=== PATIENT | female | born 1950 | race Caucasian/White ===

== ENCOUNTER 2016-04-02 05:35 | Inpatient (IN) | payer MEDICARE ==
[~2016-04-02] VITALS: Ht 162.6 cm; Wt 98.0 kg
[~2016-04-02 05:35] MED LIST: AC500T PO; ACET-2264 PO; ACET325T38 PO; AGM500T GT; ALBU0.8322 IH; ALBU8.5H4 IH; ALBU8.5H6 INH; AML2.5T PO; AMOX875T2 PO; ARGI2000 PO; ARGINAID PO; ASCO500T21 PO; BDS2MA INH; BENZ0.5T3 PO; BISA10SU6 RC; BNZT1T PO; BUPR-42 PO; BUSP10TA95 PO; BUSP15TA55 PO; BUSP15TA75 PO; CALC300T10 PO; CANA300T PO; CEFD300C9 PO; CEPH-507 PO; CETI-262 PO; CETI10TA76 PO; CHLO50TA22 PO; CHOL4PAC16 PO; CLOT15CR3 TOP; CLOT15CR6 TP; CODE118S2 PO; CPR500T PO; CYAN10004 IJ; CYCL-265 PO; DIVA250T4 PO; DIVA500T7 PO; DOCU-243 PO; DOCU-34 PO; DOCU100C PO; DOXY100C42 PO; DUONEB 0.5 MG-33 ML IH; DVL500TSR PO; EXEN2PEN SQ; EXEN2VIA SQ; FAMO20TA73 PO; FAMO40TA72 PO; FENT1PAT TD; FERR325T24 PO; FLC1T PO; FLUP1TAB PO; FLUT16SP NSEACH; FLUT1DIS2 INH; FLUT1DIS3 IH; FRSM40T GT; FURO-124 PO; GABA300C PO; GBPN100C PO; GLMP2T PO; GLMP4T PO; HYDR-3754 PO; HYDR-700 PO; INSASP1U SQ; INSU100I9 SC; INSU100V2 SQ; INSU100V32 SC; INSU100V32 SQ; INSU100V5 SC; IPRA3AMP11 INH; KETO50CA PO; LEVO100T7 PO; LEVO25TA2 PO; LEVO25TA5 PO; LEVO500T16 PO; LEVO50TA10 PO; LEVO750T39 PO; LEVOTHYROXINE PO; LINA290C PO; LISI-594 PO; LISI2.5T85 PO; LISI5TAB14 PO; LITH450T14 PO; LOPE2TAB17; LORA-404 PO; LORA-405 PO; LORA-407 PO; LSNP10T PO; LTH150C PO; LTH450TCR PO; MAGN400T26 PO; MELA1TAB26 PO; METAMUCIL1 PKT PO; METF750T PO; METF850T PO; METO-270 PO; METO25TA60 PO; METR500T PO; MIRALAX 17 GM P17 GM GT; MOM10U; MULT-954 PO; MUPI22OI TP; NCT21TD TD; NITR100C3 PO; OLAN5TAB23 PO; OLN5T PO; ONDA4TAB8 PO; ONDN4T PO; OXYB5TAB PO; OXYB5TAB9 PO; OXYC-109 PO; OXYC1TAB87 PO; OXYC20TA54 PO; OXYC5TAB71 PO; OXYGEN; PANT40SU PO; PERCOCET PO; PHEN-640 PO; POLY17PO2 PO; POLY17PO6 PO; POTA20TA12 PO; PRM25T PO; PROM25TA5 PO; PSYL1PAC10 PO; QTP100T PO; QUET300T2 PO; QUET400T PO; QUET50TA3 PO; RISP0.5T16 PO; RSP.5T PO; RSP2T PO; SENN-36 PO; SENN8.6T10 PO; SIME80TA PO; TIOT18CA IH; TRAM-25 PO; TRM50T BC; TRM50T PO; VANCORAL GT; VANCORAL PO; WARF5TAB PO; ZINC220C14 PO; [UNRECOGNIZED DRUG - CODE] IM; [UNRECOGNIZED DRUG - CODE] PO; [UNRECOGNIZED DRUG - CODE] PO; [UNRECOGNIZED DRUG - CODE] PO
--- OUTSIDE RECORDS SUMMARY | 2016-04-02 05:39 | XMS REPORT ---
Author Author GENERATED, SYSTEM Organization Unknown Address Unknown Phone Unavailable Care Team Providers Care Sand Digger Name Role Phone UNASSIGNED DOCTOR MD MARLIN DOCTOR PP [phone] Reason For Visit Chief Complaint N94.89 Social History Functional Status Vital Signs Results Problems Encounter Diagnosis No relevant problems exist. Encounters Encounter Diagnosis No relevant problems exist. Plan of Care Procedures Completed , on 10/07/2008 12:00 AMCompleted , on 08/27/2008 12:00 AMCompleted , on 08/26/2008 12:00 AMCompleted , on 08/26/2008 12:00 AMCompleted , on 08/25/2008 12: 00 AMCompleted , on 08/04/2008 12:00 AMCompleted , on 04/03/2008 12:00 AMCompleted , on 03/17/2008 12:00 AM Immunizations No immunizations administered or ordered. Hospital Course Hospital Discharge Instructions Allergies, Adverse Reactions, Alerts Latex Allergy has not been assessed.IV Contrast Allergy has not been assessed. Medication Medication reconciliation has not been performed.
--- OUTSIDE RECORDS SUMMARY | 2016-04-02 05:42 | XMS REPORT ---
Author Author GENERATED, SYSTEM Organization Unknown Address Unknown Phone Unavailable Care Team Providers Care Powerhouse Attendant Name Role Phone UNASSIGNED DOCTOR MD MARLIN DOCTOR PP [phone] Reason For Visit Chief Complaint N94.89 Social [...]
[2016-04-02] MEDS ORDERED: ALBUTEROL/IPRATROPIUM 3MG-0.5MG/3ML (DUONEB) NEB VIAL INH ONE (06:10)
[2016-04-02] MEDS ORDERED: methylPREDNISolone 125 MG (Solu-MEDROL) VIAL IV ONE (06:10)
[2016-04-02] MEDS ORDERED: SODIUM CHLORIDE FLUSH 3 ML SYR IV ONE (06:30)
[2016-04-02] MEDS: SODIUM CHLORIDE FLUSH 10 ML SYR IV PRN (06:33)
[2016-04-02 06:37] LABS: BASOPHILS % (AUTO) 0 % (0-2); EOSINOPHILS # (AUTO) 0.2 10^3uL; EOSINOPHILS % (AUTO) 1 % (0-4); LYMPHOCYTES # (AUTO) 1.7 X10^3; MEAN CORPUSCULAR HEMOGLOBIN 30.1 PG (26.0-34.0); MEAN CORPUSCULAR HGB CONC 32.9 g/dL (31.0-37.0); MEAN CORPUSCULAR VOLUME 91 FL (80-100); MEAN PLATELET VOLUME 10.2 FL (6.0-9.5); MONOCYTES # (AUTO) 0.9 X10^3; MONOCYTES % (AUTO) 6 % (3-11); NEUTROPHILS # (AUTO) 12.7 X10^3; NEUTROPHILS % (AUTO) 81 % (51-67); PLATELET COUNT 303 10^3uL (150-450); WHITE BLOOD COUNT 15.68 10^3uL (4.0-11.0)
--- NOTE | 2016-04-02 06:52 | NUR ---
RN ON DAY SHIFT TAKING OVER CARE OF PT
[2016-04-02 06:54] LABS: CREATINE KINASE 193 U/L (30-135)
[2016-04-02 07:17] LABS: ALBUMIN 3.6 g/dL (3.4-5.0); ALKALINE PHOSPHATASE 119 U/L (38-126); ANION GAP 10.3 MEQ/L (3-15); BUN/CREATININE RATIO 42 (10-20); CALCULATED IONIZED CALCIUM 4.7 mg/dL (3.8-4.6); TOTAL PROTEIN 5.9 g/dL (6.4-8.5)
[2016-04-02] MEDS ORDERED: INSULIN LISPRO 1 UNIT/0.01 ML (HUMALOG) DOSE SC ONE ×2 (07:25→08:20)
[2016-04-02] MEDS ORDERED: ALBUTEROL 0.5% NEB SOLUTION 2.5 MG/0.5 ML VIAL INH ONE (07:40)
[2016-04-02] MEDS ORDERED: CEFEPIME 2,000 MG in SODIUM CHLORIDE 100 ML IV ONE (07:40)
[2016-04-02] MEDS ORDERED: LEVOFLOXACIN 750 MG/150 ML IV 150 ML IV ONE (07:40)
--- NOTE | 2016-04-02 07:44 | NUR ---
bs 415
--- NOTE | 2016-04-02 08:04 | NUR ---
BG reading 379 - doctor notified.
[2016-04-02] MEDS ORDERED: PIPERACILLIN/TAZOBACTAM 4.5 GM in SODIUM CHLORIDE 100 ML IV ONE (08:10)
--- NOTE | 2016-04-02 08:10 | Diagnostic Imaging Report ---
INDICATION: Dyspnea. 0655 hours. Since examination of 03/27/2016, heart size and pulmonary vascularity remain within normal limits. There is no evidence of pneumothorax or consolidation. Calcified granulomas in the pulmonary sesar. Overall, there has been no adverse change. IMPRESSION: Stable chest without acute abnormality or adverse change. Dictated by: Dictated on workstation # [id number]
[2016-04-02] MEDS ORDERED: SODIUM CHLORIDE 0.9% NEB SOLN 3 ML VIAL ONE (08:11)
[2016-04-02] MEDS ORDERED: HYDROmorphone 1 MG/ML (DILAUDID) SYRINGE IV ONE (08:20)
--- NOTE | 2016-04-02 09:10 | NUR ---
Patient arrives via bed to room 303 from ED. Alert and oriented X3 but does appear drowsy and lethargic. 4L of 02 intact per oxymask. Vital upon arrival, T- 98.0, P- 113, R- 28, BP- 139/93, 02- 92% on 4L, and accucheck- 346. Patient denies pain but states "I am very sick". Levaquin infusing without difficulty. See admission for full assessment.
[2016-04-02 09:30] VITALS: BP 138/98
--- NOTE | 2016-04-02 09:39 | History and Physical (E) ---
History & Physical PCP: Elton Marsh MD CC Hypoxia HPI Ms. Hong is a 65 year old female presenting to the ED with shortness of breath. She was discharged on 03.27.16 after admission for COPD exacerbation an CAP. She followed up with her PCP on Saturday03.30.16, no medication changes were made at that time. She was discharged with oxygen to home, she continues to smoke cigarettes. This morning she took her oxygen off to go out to smoke a cigarette, when she came back inside, she was very short of air. This progressed and she had her family bring her to the ED. The patient was evaluated in the ED, she was found to have oxygen saturations in the 80's on room air. Admission was requested. Upon evaluation, the patient is somewhat belligerent. She does not answer questions, but is screaming about not wanting to go to [facility]. She continues to yell that she wants to go home. She states she did not want to com here. Her father and son are at bedside and reports that she asked them to call EMS to bring her to come to the ED. She does yell at her family reporting that she is angry regarding being at the hospital. Family states she has been sick since being discharged. Long discussion regarding patient's condition and care home care plan. Father is DPOA an does not feel that the patient is on the correct medications for her psychiatric disorders. He is concerned that her behaviors are a side effect of her medications. He states the patient sees her psychiatric provider regularly. PMH COPD (albuterol, albuterol/ipratropium, and fluticasone/salmeterol) Diabetes (novolog 10 units with meals, lantus 25 units HS, and canagliflozin) Hypothyroidism (levothyroxine) HTN (amlodipine, metoprolol, and lisinopril) Seasonal allergies (cetirizine and hydroxyzine). Psychiatric diagnoses: bipolar disorder, schizoaffective disorder (benztropine, bupropion, buspirone, fluphenazine, lithium, olanzapine) Neuropathy (gabapentin) Cervical cancer Tobaccoism Arthritis Chronic back pain (acetaminophen, ketoprofen, and tramdol) GERD History of C. Diff PSH Appendectomy Cholecystectomy Hysterectomy Hernia repair Partial bowel resection--unclear why. ALLERGIES: Iodine Ketolides/Macrolides "Myacins" Sulfa ASA Barium Doxycycline Haloperidol Marilla Sumatriptan Ziprasidone Please see list at end of report. HOME MEDICATIONS: Albuterol Sulfate 2 PUFF INH NEEDED Amlodipine 1 TAB PO DAILY Benztropine 0.5 MG PO DAILY Bupropion 150 MG PO DAILY Buspirone 10 MG PO TID Canagliflozin 300 MG PO UD Cetirizine 10 MG PO DAILY Ciprofloxacin 1 CAP PO BID Cyanocobalamin 1,000 MCG IJ monthly Docusate 100 MG PO BID Fluphenazine 1 TAB PO TID Fluticasone/Salmeterol 100-50 Diskus 1 PUFF INH BID Gabapentin 100 MG PO TID Insulin Aspart 10 UNIT SQ TIDWM Insulin Glargine 25 UNIT SC HS Ketoprofen 1 CAP PO DAILY Levothyroxine 125 MCG PO DAILY@0600 Lisinopril 1 TAB PO DAILY [place] 450 MG PO DAILY Magnesium Oxide 400 MG PO DAILY Metoprolol Succinate 25 MG PO DAILY Olanzapine 5 MG PO HS Oxybutynin 1 TAB PO NEEDED Polyethylene Glycol 3350 17 GM PO DAILY Acetaminophen 650 MG PO Q6H PRN PRN PAIN Albuterol/Ipratropium 3mg-0.5mg/3ml INH Q4H PRN PRN SHORTNESS OF BREATH Hydroxyzine 25 MG PO Q6H PRN ANXIETY Tramadol 1-2 TAB PO Q6H PRN PAIN Please see list at end of report. FH Parents--Father has HTN. Mother had cardiac disease. Siblings--Brother with HTN and skin cancer. Another brother who as a child from respiratory illness. Children--Son with DLD. Reportedly a heavy smoker for years. CODE STATUS Full code. ROS Unable to obtain as patient would not answer questions. OBJECTIVE Vital Signs Date Time Temp Pulse Resp B/P Pulse Ox O2 Delivery O2 Flow Rate FiO2 04/02/16 10:56 98.0 113 20 93 Oxymask 04/02/16 09:30 138/98 04/02/16 09:04 4 Patient refused exam. LABS CBC BMP Last 24 Hrs 04/02/16 06:25 Laboratory Results Past 24 Hrs 04/02/16 06:25: Alanine Aminotransferase (ALT/SGPT) 44, Albumin 3.6, Albumin/Globulin Ratio 1.565, Alkaline Phosphatase 119, Anion Gap 10.3, Aspartate Amino Transf (AST/ SGOT) 21, BUN/Creatinine Ratio 42, Basophils # (Auto) 0.0, Basophils (%) (Auto) 0, Blood Urea Nitrogen 35, C-Reactive Protein < 0.50, Calcium Level 9.7, Calcium /Ionized Calcium Ratio 4.7, Calculated Osmolality 291, Carbon Dioxide Level 36, Chloride Level 97, Creatine Kinase MB 3.9, Creatinine 0.84, D-Dimer 425, Eosinophils # (Auto) 0.2, Eosinophils (%) (Auto) 1, Estimat Glomerular Filtration Rate 82.6, Estimated GFR (Non- 68.3, Glucose Level 415, Hematocrit 41.60, Hemoglobin 13.7, [place] Level [Pending], Lymphocytes # ( Auto) 1.7, Lymphocytes (%) (Auto) 11, Mean Corpuscular Hemoglobin 30.1, Mean Corpuscular Hemoglobin Concent 32.9, Mean Corpuscular Volume 91, Mean Platelet Volume 10.2, Monocytes # (Auto) 0.9, Monocytes (%) (Auto) 6, LG-Nrr-H-Type Natriuretic Peptide 178, Neutrophils # (Auto) 12.7, Neutrophils (%) (Auto) 81, Platelet Count 303, Potassium Level 4.9, Red Blood Count 4.55, Red Cell Distribution Width 13.1, Sodium Level 137, Thyroid Stimulating Hormone (TSH) 1.70, Total Bilirubin 0.5, Total Creatine Kinase 193, Total Protein 5.9, Troponin I < 0.012, White Blood Count 15.68 MICRO BC's pending. IMAGING 04.02.16 CXR IMPRESSION: Stable chest without acute abnormality or adverse change. ASSESSMENT/PLAN Sepsis Met with tachycardia and leukocytosis. Attributed to HAP. Treating below. HAP Evidenced by leukocytosis and hypoxia. BC drawn in ER after abx were given. Patient has been treated with levofloxacin recently. Family reports the patient has taken all of the abx. Will provided levofloxacin and vancomycin. Continue to monitor cultures closely. Acute hypoxic respiratory failure Continue to provide supplemental oxygen. Attributed to HAP and COPD exacerbation. COPD Devtent is on albuterol, albuterol/ipratropium, and budesonide at home. Continue budesonide, schedule duonebs, provide prn albuterol. Will provide long tapering dose of steroids, 40mg daily while inpatient, then d/ c with medrol dose pack. Diabetes Patient is on Novolog 10 units with meals, lantus 25 units HS, and canagliflozin at home. Will monitor accu cheks, provide SSI, continue basal lantus and meal time insulin. Holding canagliflozin. Hypothyroidism TSH was normal on last admission. Continue home levothyroxine. HTN Continue home amlodipine and lisinopril. Bipolar disorder, schizoaffective disorder Continuing home fluphenazine and lithium. Tobaccoism Will offer nicoderm. Chronic back pain Patient uses acetaminophen, ketoprofen, and tramdol at home, will continue. FEN Medium diabetic diet. No fluids at this time. Electrolytes normal at this time. Code status Full code. DVT proph Lovenox. Dispo Inpatient for above issues. Allergies/Home Medications Allergies: Coded Allergies: Iodinated Contrast Media - Oral and (Verified Allergy, Unknown, 04/02/16) Macrolide Antibiotics (Verified Allergy, Unknown, 04/02/16) Sulfa (Sulfonamide Antibiotics) (Verified Allergy, Unknown, 04/02/16) aspirin (Verified Allergy, Unknown, 04/02/16) barium iodide (Verified Allergy, Unknown, 04/02/16) doxycycline (Verified Allergy, Unknown, 04/02/16) haloperidol (Verified Allergy, Unknown, 04/02/16) iodine (Verified Allergy, Unknown, 04/02/16) strawberry (Verified Allergy, Unknown, 04/02/16) sumatriptan (Verified Allergy, Unknown, TACHYCARDIA, PALPITATIONS, HTN, DIAPHORESIS, HEADACHE, 04/02/16) telithromycin (Verified Allergy, Unknown, 04/02/16) ketolides ziprasidone mesylate (Verified Allergy, Unknown, 04/02/16) Uncoded Allergies: KETOLIDES (Allergy, Unknown, 07/22/15) MYACINS (Allergy, Unknown, 07/22/15) Reported Home Medications Scheduled Amlodipine Besylate (Amlodipine Besylate) 2.5 MG PO DAILY (Reported) Budesonide (Pulmicort) 0.5 MG INH DAILY (Reported) Docusate Sodium (Stool Softener) 100 MG PO BID (Reported) Famotidine (Pepcid) 40 MG PO HS (Reported) Fluphenazine HCl (Fluphenazine HCl) 2 MG PO BID (Reported) Insulin Aspart (Novolog) 5 UNIT SQ TIDWM (Reported) Insulin Detemir (Levemir) 15 UNIT SC HS (Reported) Levothyroxine Sodium (Levothyroxine Sodium) 100 MCG PO DAILY@0600 (Reported) Linaclotide (Linzess) 290 MCG PO DAILY (Reported) Lisinopril (Lisinopril) 10 MG PO DAILY (Reported) [place] Carbonate ([place]) 150 MG PO BID WITH MEALS Magnesium Oxide (Mag-Oxide) 400 MG PO BID (Reported) Melatonin/Pyridoxine HCl (B6) (Melatonin 3 mg Tablet) 2 EACH PO HS (Reported) Oxybutynin Chloride (Oxybutynin Chloride) 5 MG PO DAILY (Reported) Polyethylene Glycol 3350 (Miralax) 17 GM PO DAILY (Reported) Scheduled PRN Acetaminophen (Tylenol) 650 MG PO Q6H PRN PRN PAIN (Reported) Albuterol Sulfate (ED- Ventolin HFA) 2 PUFF INH Q4H PRN PRN DYSPNEA Albuterol/Ipratropium (Duoneb 3mg-0.5mg/3ml) 3 ML INH Q4H PRN PRN SHORTNESS OF BREATH Calcium Carbonate (Tums) 600 MG PO Q2H PRN PRN DYSPEPSIA Fluphenazine HCl (Fluphenazine HCl) 1 MG PO DAILY PRN PRN psychosis (Reported) Ketoprofen (Ketoprofen) 50 MG PO TID PRN PRN PAIN (Reported) Tramadol Hcl (Tramadol Hcl) 1-2 TAB PO Q6H PRN PRN PAIN Discontinued Medications Cetirizine HCl (Cetirizine HCl) 10 MG PO DAILY (Reported) Discontinued Reason: Course completed Hydroxyzine HCl (Hydroxyzine HCl) 25 MG PO Q6H PRN PRN ANXIETY Discontinued Reason: Course completed Levofloxacin (Levaquin) 750 MG PO DAILY@0700 Discontinued Reason: Update list [place] Carbonate (Eskalith-CR) 450 MG PO DAILY (Reported) Discontinued Reason: Course completed Nitrofurantoin Monohyd/M-Cryst (Macrobid 100 mg Capsule) 100 MG PO BID (Reported ) Discontinued Reason: Course completed Durable Medical Equipment (Oxygen) 1 EA (DME) Copies to: End of Report . DAVID WHITNEY MD Apr 02, 2016 09:39
[2016-04-02] MEDS ORDERED: ONDANSETRON 2 MG/ML (Z0FRAN) 2 ML VIAL IV PRN (09:40)
[2016-04-02 10:56] VITALS: BP 138/98
--- NOTE | 2016-04-02 11:20 | NUR ---
Oxygen increased to 6L per nc. Patient agitated and yelling out "help me". Unable to vocalize needs. Yells louder when staff attempts to calm using therapeutic communication.
[2016-04-02] MEDS ORDERED: LORazepam 2 MG/ML (ATIVAN) 1 ML VIAL IV ONE (11:30)
--- NOTE | 2016-04-02 11:35 | NUR ---
Patient continues to yell out and staff is unable to redirect. Dr. Mata notified and new order received. Ativan 1mg IV X1 administered at this time. Patient on 8L of 02 per oxymask.
[2016-04-02] MEDS ORDERED: VANCOMYCIN 1,000 MG in SODIUM CHLORIDE 250 ML IV SCH (11:50)
[2016-04-02] MEDS: LEVOFLOXACIN 750 MG/150 ML IV 150 ML IV SCH (11:50)
--- NOTE | 2016-04-02 11:54 | NUR ---
Patient resting in bed with eyes closed. Oxygen titrated to 4L per oxymask. Respirations mildly labored. No apparent signs of pain or distress. Will continue to monitor.
[2016-04-02] MEDS ORDERED: INSULIN ASPART 5 UNIT SQ SCH (12:00)
[2016-04-02] MEDS: INSULIN LISPRO 1 UNIT/0.01 ML (HUMALOG) DOSE SC SCH ×2 (12:00→17:13)
--- NOTE | 2016-04-02 12:24 | NUR ---
Pharmacy Dosed Vanco S: SIRS/Resp distress O: 65 y/o 64in 63.6 kg SCr 0.84 A/P: Start Levaquin 750mg q24h and Vanco 1250mg IV q 18H with a predicted trough of 18.1 to be drawn on 04/04/16 @ 1930
--- NOTE | 2016-04-02 14:42 | NUR ---
MED REC COMPLETE--current med list obtained from discharge med list of previous hospitalization (03/20/16-03/26/16).
[2016-04-02] MEDS: VANCOMYCIN COMPOUNDED BY PHARMACY IV SCH (14:51)
[2016-04-02] MEDS: VANCOMYCIN 1250 MG in SODIUM CHLORIDE 250 ML IV SCH (14:51)
[2016-04-02 16:14] VITALS: BP 124/82
[2016-04-02] MEDS: LITHIUM CARBONATE 150 MG CAP PO SCH (17:13)
[2016-04-02] MEDS: ALBUTEROL HFA (VENTOLIN HFA) COMMON CANNISTER IH PRN ×2 (17:45→21:19)
--- NOTE | 2016-04-02 18:35 | NUR ---
Patient sleeps in short intervals after Ativan. Continues to yell out for help intermittently. 5L of 02 per nc intact. Oxygen saturation 95% at this time. Accucheck prior to supper- 308. 5units of Humalog provided with meals. TABS and bed alarm intact for safety. Will continue to monitor closely.
[2016-04-02 19:46] VITALS: BP 133/72
[2016-04-02] MEDS: INSULIN DETEMIR 1 UNIT/0.01 ML (LEVEMIR) DOSE SC SCH (21:00)
[2016-04-02] MEDS ORDERED: FLUPHENAZINE 5 MG PO SCH (21:00)
[2016-04-02] MEDS ORDERED: FLUPHENAZINE HCL PO SCH (21:00)
[2016-04-02] MEDS: FLUPHENAZINE 5 MG PO SCH (21:00)
--- NOTE | 2016-04-02 21:03 | NUR ---
Pt found inconsolable in bed, screaming repeatedly that she cant breathe, SPO2 94% on 5 l/min OM, which she takes off repeatedly. Family at bedside. Unable to listen to BS due to screaming. Dr Mata aware.
--- NOTE | 2016-04-02 21:03 | NUR ---
Pt yelling out that she can't breathe. O2 sat 93% on 5L oxygen per oxymask. Nurse and RT staff in room. Much reassurance provided to pt. Pt cont to be inconsolable. Dr Mata notified of situation.
[2016-04-02] MEDS ORDERED: LORazepam 2 MG/ML (ATIVAN) 1 ML VIAL IM PRN (21:20)
--- NOTE | 2016-04-02 21:21 | NUR ---
Pt screaming for "My breathing Tx", when I brought it, scanned and offered the med, she refused.
[2016-04-02] MEDS: LORazepam 2 MG/ML (ATIVAN) 1 ML VIAL IV PRN (21:30)
--- NOTE | 2016-04-02 21:30 | NUR ---
1 mg Ativan given IV for pt's agitation
--- NOTE | 2016-04-02 21:43 | NUR ---
HS medications held d/t pt's agitation and combativeness.
--- NOTE | 2016-04-02 22:35 | NUR ---
Pt cont to be restless. Frequently yells for help and takes off oxygen mask. Close monitoring provided for pt safety.
--- NOTE | 2016-04-02 23:52 | NUR ---
pt resting quietly in bed. nasal cannula intact. IVF infusing w/o difficulty. Alissa RN at bedside for pt safety.
--- NOTE | 2016-04-03 03:12 | NUR ---
Pt yelling "help". Ambulates to bathroom and back with staff assist x2. Reassurance provided to pt.
[2016-04-03] MEDS: LORazepam 2 MG/ML (ATIVAN) 1 ML VIAL IV PRN ×3 (03:18→19:09)
--- NOTE | 2016-04-03 04:15 | NUR ---
Pt resting quietly in bed.
--- NOTE | 2016-04-03 05:15 | NUR ---
Lab into draw blood. Pt begins to yell. Attempted to give pt prn ultram. Pt refuses pain pill and morning synthroid.
[2016-04-03] MEDS: LEVOTHYROXINE 100 MCG (LEVOTHROID) TABLET PO SCH (05:41)
[2016-04-03 06:09] VITALS: BP 152/66
--- NOTE | 2016-04-03 06:09 | NUR ---
Pt resting quietly with eyes closed. NS infusing at 100 ml/hr. Pt cont on 5L oxygen per nasal cannula.
[2016-04-03 06:34] LABS: MEAN CORPUSCULAR HEMOGLOBIN 29.7 PG (26.0-34.0); MEAN CORPUSCULAR HGB CONC 31.9 g/dL (31.0-37.0); MEAN CORPUSCULAR VOLUME 93 FL (80-100); MEAN PLATELET VOLUME 10.7 FL (6.0-9.5); PLATELET COUNT 335 10^3uL (150-450); WHITE BLOOD COUNT 23.26 10^3uL (4.0-11.0)
[2016-04-03 06:55] LABS: BAND NEUTROPHILS % 0 % (0-6); EOSINOPHILS % 0 % (0-4); LYMPHOCYTES # 0.9 #; MONOCYTES # 0.7 #; MONOCYTES % 3 % (3-11); RBC MORPH NORMAL (NORMAL); SEGMENTED NEUTROPHILS % 85 % (51-67); TOTAL CELLS COUNTED 100
[2016-04-03 07:13] LABS: ANION GAP 14.5 MEQ/L (3-15); CALCULATED IONIZED CALCIUM 4.6 mg/dL (3.8-4.6); TOTAL PROTEIN 5.3 g/dL (6.4-8.5)
[2016-04-03] MEDS: INSULIN LISPRO 1 UNIT/0.01 ML (HUMALOG) DOSE SC SCH ×3 (08:27→18:39)
[2016-04-03] MEDS: FLUPHENAZINE 5 MG PO SCH ×2 (09:00→21:00)
--- NOTE | 2016-04-03 09:11 | Progress Note (E) ---
Progress Note S: Sitting up in bed eating breakfast but screaming at staff to get her to the bathroom- She is not steady on her feet and requires 2-3 people to help get her up to the bathroom. Patient continues to call out and yell at people. She seems frustrated with many things including not eating what she wants. She is very tremulous, however staff states this is baseline for the patient. Patient was hitting at staff overnight and has thrown coffee at staff today. Long discussion with the patient's father and son regarding placement. O: Vital Signs Date Time Temp Pulse Resp B/P Pulse Ox O2 Delivery O2 Flow Rate FiO2 04/03/16 06:09 98.0 57 20 152/66 97 Nasal cannula 04/02/16 09:04 4 I & O Past 24 hrs 04/03/16 07:00 Intake Total 790 ml Output Total 1100 ml Balance -310 ml Intake Oral 790 ml Output Urine Total 1100 ml General--Awake- screaming out to get help to go to the bathroom and angry about eating her lunch. HEENT--Atraumatic. Lungs--DBS bilaterally. CV--S1S2, RRR. Abdomen--Normal bowel sounds. S/ND/NTTP. Ext--No cyanosis no edema Neuro--Yelling out loud- screaming at staff- takes 2-3 people to help her to the bathroom HOME MEDICATIONS: Albuterol Sulfate 2 PUFF INH NEEDED Amlodipine 1 TAB PO DAILY Benztropine 0.5 MG PO DAILY Bupropion 150 MG PO DAILY Buspirone 10 MG PO TID Canagliflozin 300 MG PO UD Cetirizine 10 MG PO DAILY Ciprofloxacin 1 CAP PO BID Cyanocobalamin 1,000 MCG IJ monthly Docusate 100 MG PO BID Fluphenazine 1 TAB PO TID Fluticasone/Salmeterol 100-50 Diskus 1 PUFF INH BID Gabapentin 100 MG PO TID Insulin Aspart 10 UNIT SQ TIDWM Insulin Glargine 25 UNIT SC HS Ketoprofen 1 CAP PO DAILY Levothyroxine 125 MCG PO DAILY@0600 Lisinopril 1 TAB PO DAILY [place] 450 MG PO DAILY Magnesium Oxide 400 MG PO DAILY Metoprolol Succinate 25 MG PO DAILY Olanzapine 5 MG PO HS Oxybutynin 1 TAB PO NEEDED Polyethylene Glycol 3350 17 GM PO DAILY Acetaminophen 650 MG PO Q6H PRN PRN PAIN Albuterol/Ipratropium 3mg-0.5mg/3ml INH Q4H PRN PRN SHORTNESS OF BREATH Hydroxyzine 25 MG PO Q6H PRN ANXIETY Tramadol 1-2 TAB PO Q6H PRN PAIN Please see list at end of report. CBC BMP Last 24 Hrs 04/03/16 05:25 Laboratory Results Past 24 Hrs 04/03/16 05:25: Absolute Band Neutrophils 0.0, Alanine Aminotransferase (ALT/SGPT) 33, Albumin 3.0, Albumin/Globulin Ratio 1.304, Alkaline Phosphatase 69, Anion Gap 14.5, Aspartate Amino Transf (AST/SGOT) 28, Atypical Lymphocytes 8, BUN/Creatinine Ratio 37, Band Neutrophils % 0, Basophils # (Auto) , Basophils # (Manual) 0.0, Basophils % (Manual) 0, Basophils (%) (Auto) , Blood Morphology Comment Normal, Blood Urea Nitrogen 28, Calcium Level 8.9, Calcium/Ionized Calcium Ratio 4.6, Calculated Osmolality 276, Carbon Dioxide Level 25, Chloride Level 102, Creatinine 0.75, Differential Total Cells Counted 100, Eosinophils # 0.0, Eosinophils # (Auto) , Eosinophils % (Manual) 0, Eosinophils (%) (Auto) , Estimat Glomerular Filtration Rate 94.1, Estimated GFR (Non- 77.8, Glucose Level 242, Hematocrit 40.50, Hemoglobin 12.9, Lymphocytes # 0.9, Lymphocytes # (Auto) , Lymphocytes % (Manual) 4, Lymphocytes (%) (Auto) , Magnesium Level 1.6, Mean Corpuscular Hemoglobin 29.7, Mean Corpuscular Hemoglobin Concent 31.9, Mean Corpuscular Volume 93, Mean Platelet Volume 10.7, Metamyelocytes % 0, Monocytes # 0.7, Monocytes # (Auto) , Monocytes % (Manual) 3 , Monocytes (%) (Auto) , Neutrophils # 19.8, Neutrophils # (Auto) , Neutrophils (%) (Auto) , Platelet Count 335, Potassium Level 5.0, Red Blood Count 4.34, Red Cell Distribution Width 13.1, Segmented Neutrophils % 85, Sodium Level 136, Total Bilirubin 0.7, Total Protein 5.3, White Blood Count 23.26 MICRO BC negative at 24 hours. IMAGING 04.02.16 CXR IMPRESSION: Stable chest without acute abnormality or adverse change. ASSESSMENT/PLAN Sepsis Met with tachycardia and leukocytosis. Leukocytosis persists due to steroids. Tachycardia has resolved. Attributed to HAP. Treating below. HAP Evidenced by leukocytosis and hypoxia. BC drawn in ER after abx were given, negative per above. Patient has been treated with levofloxacin recently. Family reports the patient has taken all of the abx. Will provided levofloxacin and vancomycin. Continue to monitor cultures closely. Acute on chronic hypoxic respiratory failure Continue to provide supplemental oxygen wean to home dose per protocol. Attributed to HAP and COPD exacerbation. Patient is using oxygen at home--2L continuously. COPD Patient is on albuterol, albuterol/ipratropium, and budesonide at home. Continue budesonide, schedule duonebs, provide prn albuterol. Will provide long tapering dose of steroids, 40mg daily while inpatient, then d/ c with medrol dose pack. Diabetes Patient is on Novolog 10 units with meals, lantus 25 units HS, and canagliflozin at home, continuing these here. Will monitor accu cheks, provide SSI, continue basal lantus and meal time insulin. Hypothyroidism TSH was normal on last admission. Continue home levothyroxine. HTN Continue home amlodipine and lisinopril. Bipolar disorder, schizoaffective disorder Continuing home fluphenazine and lithium. Tobaccoism Will offer nicoderm. Chronic back pain Patient uses acetaminophen, ketoprofen, and tramdol at home, will continue. FEN Medium diabetic diet. No fluids at this time. Electrolytes normal at this time. Code status Full code. DVT proph Lovenox. Dispo Inpatient for above issues. Patient needs placement, however she is very resistant to this. At the very least she needs to be evaluated by psychiatry to have her medications adjusted. She is very angry, belligerent and volatile. Possibly [facility] or [facility]. Father is also hesitant for transfer to a psych facility. He is concerned that the patient will not "try to get along with him," if he does not do what she wants. Son and father are discussing options. Jazmine Villanueva APRN Apr 03, 2016 09:11 DAVID WHITNEY MD Apr 03, 2016 16:49
--- NOTE | 2016-04-03 09:15 | NUR ---
As I walked the patient to the bathroom she screamed "I can't walk, I can't walk." I told her she was doing a good job of walking at this time and she yelled out "no I'm not." No amount of reasonable explanation from myself or the FAST FOOD ATTENDANT seems to console her.
[2016-04-03] MEDS: BUDESONIDE NEBS 0.5 MG/2ML (PULMICORT) AMP INH SCH (09:16)
[2016-04-03] MEDS: predniSONE 20 MG (DELTASONE) TABLET PO SCH (09:46)
[2016-04-03] MEDS: amLODIPine 2.5MG (NORVASC) TAB PO SCH (09:46)
[2016-04-03] MEDS: LITHIUM CARBONATE 150 MG CAP PO SCH ×2 (09:46→18:40)
[2016-04-03] MEDS: lisINopril 10 MG (PRINIVIL) TABLET PO SCH (09:46)
[2016-04-03] MEDS: VANCOMYCIN COMPOUNDED BY PHARMACY IV SCH (09:47)
[2016-04-03] MEDS: ENOXAPARIN 40 MG/0.4 ML (LOVENOX) SYR SC SCH (09:47)
[2016-04-03] MEDS: POLYETHYLENE GLYCOL 17 GM (MIRALAX) PACKET PO SCH (09:47)
[2016-04-03] MEDS: VANCOMYCIN 1250 MG in SODIUM CHLORIDE 250 ML IV SCH (09:47)
--- NOTE | 2016-04-03 10:00 | NUR ---
Patient threw her coffee across the room as the respiratory therapist was explaining cares to her.
[2016-04-03 11:30] VITALS: BP 145/70
[2016-04-03] MEDS: LEVOFLOXACIN 750 MG/150 ML IV 150 ML IV SCH (11:57)
[2016-04-03 12:00] VITALS: BP 145/70
--- NOTE | 2016-04-03 12:01 | NUR ---
O2 sat.= 97% on 5 liters. Will recheck sat.
--- NOTE | 2016-04-03 12:05 | NUR ---
The patient gets a phrase in her mind and she keeps voicing it repeatedly at all times while awake. No explanations change the constant chants.
--- NOTE | 2016-04-03 12:30 | NUR ---
O2 sat.= 95% on 4 liters NC. Turned O2 down to 3 liters. Will recheck.
--- NOTE | 2016-04-03 13:00 | NUR ---
O2 sat.= 91-92% on 3 liters NC. Her latest chant is I can't breathe. I showed her the O2 sat. result and she replied "I can't breathe." Resp. are unlabored and skin color is normal.
[2016-04-03] MEDS: SODIUM CHLORIDE FLUSH 10 ML SYR IV PRN ×2 (13:17→19:09)
--- NOTE | 2016-04-03 14:15 | NUR ---
Patient was moved from room 303 to room 313 for safety. She has set off the tabs alarm a few times today. When in the new room bed alarm, pressure alarm, and tabs alarm were reapplied.
--- NOTE | 2016-04-03 15:50 | NUR ---
Pt is laying in bed resting, SPO2 is 92% on 3L.
--- NOTE | 2016-04-03 16:30 | NUR ---
Patient slept for a 1.5 hour period about one hour after IV Ativan was given. When awake she immediately went back to screaming inconsolably.
--- NOTE | 2016-04-03 18:01 | NUR ---
O2 sat.= 97% on 3 liters NC. Weaned O2 to 2 liters. Will recheck sat.
--- NOTE | 2016-04-03 18:15 | NUR ---
Patient screams without consolation. She shouts out "help me" frequently but when the nurse and the FRINGING MACHINE OPERATOR asked her what she needed help with she responded "don't ask me, don't help me." 6 different staff members have attempted to help but she responded to each of them the same way.
--- NOTE | 2016-04-03 18:26 | NUR ---
Patient screams out "I need your help" repeatedly but when another nurse asks her what she needs she responds "I don't want your help."
--- NOTE | 2016-04-03 18:33 | NUR ---
O2 sat.= 90% on 2 liters NC. I will leave O2 at this amount as this is the prescribed home dose.
[2016-04-03] MEDS: NICOTINE 21 MG (NICODERM) PATCH TD SCH (18:40)
--- NOTE | 2016-04-03 19:14 | NUR ---
Ativan dosing helps the patient sleep for a period of time but it does not change her mentation or stop behaviors.
--- NOTE | 2016-04-03 19:50 | NUR ---
Pt found on RA, SPO2 79%, placed on 2 l/min NC, SPO2 recovered to 90%
--- NOTE | 2016-04-03 20:00 | NUR ---
Patient sitting in chair, yelling. Staff can not calm her down. Chair alarm on. Dr. Wiley in to see patient and attempt to talk with patient. Dr's orders obtained.
[2016-04-03] MEDS ORDERED: LORazepam 2 MG/ML (ATIVAN) 1 ML VIAL IV ONE (21:05)
--- NOTE | 2016-04-03 21:09 | NUR ---
Ativan 2mg administered IM RVG per Gi Martinez RN. Patient ambulated to bed, assisted by two staff. Bed alarm placed on for safety.
[2016-04-03] MEDS ORDERED: ZIPRASIDONE 20 MG INJ (GEODON) VIAL IM ONE (21:15)
--- NOTE | 2016-04-03 21:15 | NUR ---
Geodon 10mg administered IM LVG. Patient tolerated well. IV leaking and dc'd.
--- NOTE | 2016-04-03 21:30 | NUR ---
Patient is calming down. Asks nurse if Dr is mad at her. Reassurance given. Respirations 24 and slightly labored. Oxygen remains on at 2 liters per minute per nasal cannula.
[2016-04-03] MEDS ORDERED: PROMETHAZINE HCL INJ 12.5 MG in SODIUM CHLORIDE 25 ML IV PRN (21:35)
[2016-04-03] MEDS ORDERED: POLYETHYLENE GLYCOL 17 GM (MIRALAX) PACKET PO PRN (21:35)
[2016-04-03] MEDS ORDERED: ONDANSETRON 2 MG/ML (Z0FRAN) 2 ML VIAL IV PRN (21:35)
[2016-04-03] MEDS ORDERED: DEXTROSE ORAL GEL (GLUTOSE 40%) 15 GM TUBE PO PRN (21:35)
[2016-04-03] MEDS ORDERED: CALCIUM CARBONATE CHEWABLE 300 MG (TUMS) TABLET PO PRN (21:35)
[2016-04-03] MEDS ORDERED: DEXTROSE 50% 25 GM/50 ML SYRINGE IV PRN (21:35)
[2016-04-03] MEDS ORDERED: GLUCAGON EMERGENCY 1 MG/KIT IM PRN (21:35)
[2016-04-03] MEDS ORDERED: MAG HYDROX/AL HYDROX/SIMETH 200-200-20/5 ML (MAG-AL PLUS) 30 ML UDC PO PRN (21:35)
[2016-04-03 21:40] VITALS: BP 154/92
--- NOTE | 2016-04-03 21:46 | Progress Note (E) ---
Progress Note SUBJECTIVE Assumed care at 1900. Seen and examined because she continues to be delirious, shouting out, being combative, being disruptive to entire care team. She continues to yell out, "I need help," but cannot verbalize what she wants other than yelling that she wants to go home and she wants to smoke a cigarette. Despite all efforts at reorientation and redirection she cannot be consoled. She continues to shout out "help" and "please" at the top of her lungs. Lorazepam has not been effective in controlling her anxiety and delirium. Staff are continuously responding to her shouts without any improvement in her behavior. She called out for help going to bathroom. I assisted her ambulating to toilet in her room. Gait very unsteady but she was able to walk into bathroom with walker and standby assist, gait belt. Called patient's primary care provider to discuss her baseline and mental health issues. He called back stating he doesn't think ziprasidone is a true allergy, but that it just makes her tired. Noted she has allergy listed on file to ziprasidone and haloperidol, but no reaction is listed and no severity is listed. Review of available notes from previous admission does not provide further allergy reaction information. Noted she has been on quetiapine and chlorpromazine in the past. She currently takes fluphenazine but did not receive last night's dose nor this AM dose. Contacted [facility] through after-hours Crisis Line. Awaiting callback. Lorazepam 2 mg IV being given now because of constant agitation that is not consolable. OBJECTIVE Vital Signs Date Time Temp Pulse Resp B/P Pulse Ox O2 Delivery O2 Flow Rate FiO2 04/03/16 17:26 72 04/03/16 12:00 97.2 20 145/70 97 Nasal cannula 3.00 I & O 04/02/16 04/03/16 Cumulative From/Thru 19:00 07:00 04/02/16 05:41 - 04/03/16 06:10 Intake Total 100 ml 690 ml 790 ml Output Total 500 ml 600 ml 1100 ml Balance -400 ml 90 ml -310 ml GEN: Agitated, combative. Inconsolable. HEENT: EOMI, clear sclerae. Edentulous. CV: Regular without murmur. PULM: Difficult to auscult due to yelling. Diminished breath sounds with end- expiratory wheezing bilaterally. ABD: Soft, not apparently tender. Active bowel sounds. INTEG: Age related changes. Pallor. NEURO: Agitated. Tremulous. Able to ambulate short distance but with shuffling gait. Lab-Past 14 Days, 35 Results 04/02/16 06:25: Alanine Aminotransferase (ALT/SGPT) 44, Albumin 3.6#, Albumin/Globulin Ratio 1.565, Alkaline Phosphatase 119, Anion Gap 10.3, Aspartate Amino Transf (AST/ SGOT) 21, BUN/Creatinine Ratio 42H, Basophils # (Auto) 0.0, Basophils (%) (Auto ) 0, Blood Urea Nitrogen 35#H, C-Reactive Protein < 0.50, Calcium Level 9.7, Calcium/Ionized Calcium Ratio 4.7H, Calculated Osmolality 291, Carbon Dioxide Level 36H, Chloride Level 97L, Creatine Kinase MB 3.9, Creatinine 0.84, D-Dimer 425, Eosinophils # (Auto) 0.2, Eosinophils (%) (Auto) 1, Estimat Glomerular Filtration Rate 82.6, Estimated GFR (Non- 68.3, Glucose Level 415#*H, Hematocrit 41.60, Hemoglobin 13.7, [place] Level 0.95, Lymphocytes # ( Auto) 1.7, Lymphocytes (%) (Auto) 11L, Mean Corpuscular Hemoglobin 30.1, Mean Corpuscular Hemoglobin Concent 32.9, Mean Corpuscular Volume 91, Mean Platelet Volume 10.2H, Monocytes # (Auto) 0.9, Monocytes (%) (Auto) 6, YU-Szc-R-Type Natriuretic Peptide 178H, Neutrophils # (Auto) 12.7, Neutrophils (%) (Auto) 81H , Platelet Count 303#, Potassium Level 4.9, Red Blood Count 4.55, Red Cell Distribution Width 13.1, Sodium Level 137, Thyroid Stimulating Hormone (TSH) 1.70, Total Bilirubin 0.5, Total Creatine Kinase 193#H, Total Protein 5.9L, Troponin I < 0.012, White Blood Count 15.68H 04/03/16 05:25: Alanine Aminotransferase (ALT/SGPT) 33, Albumin 3.0L, Albumin/Globulin Ratio 1.304, Alkaline Phosphatase 69, Anion Gap 14.5, Aspartate Amino Transf (AST/SGOT ) 28, BUN/Creatinine Ratio 37H, Basophils # (Auto) , Basophils (%) (Auto) , Blood Urea Nitrogen 28H, Calcium Level 8.9, Calcium/Ionized Calcium Ratio 4.6, Calculated Osmolality 276L, Carbon Dioxide Level 25, Chloride Level 102, Creatinine 0.75, Eosinophils # (Auto) , Eosinophils (%) (Auto) , Estimat Glomerular Filtration Rate 94.1, Estimated GFR (Non- 77.8, Glucose Level 242#H, Hematocrit 40.50, Hemoglobin 12.9, Lymphocytes # (Auto) , Lymphocytes (%) (Auto) , Mean Corpuscular Hemoglobin 29.7, Mean Corpuscular Hemoglobin Concent 31.9, Mean Corpuscular Volume 93, Mean Platelet Volume 10.7H , Monocytes # (Auto) , Monocytes (%) (Auto) , Neutrophils # (Auto) , Neutrophils (%) (Auto) , Platelet Count 335, Potassium Level 5.0, Red Blood Count 4.34, Red Cell Distribution Width 13.1, Sodium Level 136, Total Bilirubin 0.7, Total Protein 5.3L, White Blood Count 23.26H, Absolute Band Neutrophils 0.0 , Atypical Lymphocytes 8, Band Neutrophils % 0, Basophils # (Manual) 0.0, Basophils % (Manual) 0, Blood Morphology Comment Normal, Differential Total Cells Counted 100, Eosinophils # 0.0, Eosinophils % (Manual) 0, Lymphocytes # 0.9, Lymphocytes % (Manual) 4L, Magnesium Level 1.6, Metamyelocytes % 0, Monocytes # 0.7, Monocytes % (Manual) 3, Neutrophils # 19.8, Segmented Neutrophils % 85H MICRO 04/03 Blood culture Negative to date IMAGING 04/02/16 CHEST 1 VIEW, AP/PA ONLY* INDICATION: Dyspnea. 0655 hours. Since examination of 03/27/2016, heart size and pulmonary vascularity remain within normal limits. There is no evidence of pneumothorax or consolidation. Calcified granulomas in the pulmonary sesar. Overall, there has been no adverse change. IMPRESSION: Stable chest without acute abnormality or adverse change. REFERENCE 03/27/16 CHEST 1 VIEW, AP/PA ONLY* CLINICAL INDICATION: Patient with shortness of breath. EXAM: Portable chest x-ray upright view. COMPARISONS: Chest x-ray dated 03/22/2016. FINDINGS: The previously seen 7 mm right upper lobe nodule has decreased in size and density compared to the prior study but residual amorphous opacity in the region still present. There is no interval lung infiltrate. The remainder of lungs are clear. There is no pleural effusion or pneumothorax. Pulmonary vasculature and cardiac silhouette is within normal limits. The remainder of this exam shows no significant interval change compared to the prior study of comparison. IMPRESSION: 1: Interval decreased size and density of the previously seen 7 mm right upper lobe nodule. This may represent an infectious or inflammatory process. Follow up chest x-ray in 4 weeks is suggested to evaluate for interval resolution of this finding. 2: The remainder of the chest exam is stable with no interval acute cardiopulmonary process. ASSESSMENT Shy Hong is a 65 year old female admitted from ED 04/02 where she presented just 1 week after prior discharge 03/26 from [id number] with SIRS/sepsis and COPD exacerbation attributed to pneumonia. She refused recommendation for [facility] hospitalization. Upon return to home she failed to demonstrate ability to care for herself and could not be supported by her family at home. She returned to ED 03/27 and again on 04/02 when she was admitted again with concerning signs for recurring pneumonia, but now also severe agitation/delirium concerning for acute psychosis. PLAN * Agitation/Delirium: Lorazepam, ziprasidone (confirmed to best of ability that she does not have a true allergy.) Discuss with [facility] provider... call placed to crisis line and awaiting call back. If her agitation and delirium cannot be controlled here, will advocate for transfer to tertiary care center where inpatient psychiatry consultation can be provided. * Schizoaffective Disorder: Fluphenazine on hold and giving ziprasidone temporarily. Benztropine, bupropion, buspirone no longer on her home medication profile. Review regimen with PCP records and with [facility]. * SIRS/Sepsis: Attributed to HCAP. * Acute on Chronic Respiratory Failure: Attributed to HCAP, COPD exacerbation, poor self-care at home, poor adherence to home oxygen prescription, continued smoking. * HCAP: Blood culture negative to date. No sputum for culture. Empiric levofloxacin, vancomycin. Stopped levofloxacin since it can prolong QTc and can aggravate [employer] symptoms. Switched it to pip-tazo 04/03. * Leukocytosis: 15.68 on admit, increased to 23.26 04/03. Due to prednisone? Monitor trend. Noted CRP < 0.50 so HCAP diagnosis is a bit uncertain. * COPD with Acute Exacerbation: Duoneb scheduled, albuterol PRN. Budesonide. Prednisone (though noted steroids can sometimes aggravate delirium.) Needs prednisone taper. * F/E/N: Diabetic diet. Peripheral IV though access has been difficult to maintain. * Prophylaxis: Enoxaparin, SCDs. * Code Status: Full * Dispo: Inpatient. Acute agitation/delirium significantly impedes progress. Proffered skilled care for further recovery on prior admit but she adamantly refused. Now worried that she may have underlying acute psychosis and may need mental health hospitalization. CHRONIC ISSUES * Constipation: Bowel regimen * HTN: Uncontrolled due to patient non-adherence. Improved with current regimen : amlodipine, lisinopril. * Diabetes Mellitus Type II: Basal/bolus regimen. Correction factor. * Hypothyroidism: Levothyroxine * Bipolar Disorder: [place]. Dose decreased on prior admit due to elevated lithium level. * Neuropathy: Gabapentin no longer in home medication profile. * Tobacco Abuse: Nicotine patch * Hypothyroidism: TSH normal. Levothyroxine. * Chronic Pain: Tramadol on hold. Acetaminophen * Irritable Bowel? Linaclotide (resume at discharge.) PAMELA FORD MD Apr 03, 2016 21:00
[2016-04-03] MEDS: ALBUTEROL/IPRATROPIUM 3MG-0.5MG/3ML (DUONEB) NEB VIAL INH SCH (21:57)
--- NOTE | 2016-04-03 22:04 | NUR ---
RT here and administered treatment. Patient has cough, productive at times. Expectorates white secretions. Accu Check earlier was 292. Unadble to administer insulin dur to patient being combative.
--- NOTE | 2016-04-03 22:04 | NUR ---
Called to Pt's room for change in respiratory interventions by Dr Carlos to Duoneb QID and 2.5 mg Albuterol Q4 PRN, 1st scheduled Tx now. Pt found sleeping in bed on 2 l/min NC, SPO2 93%, HR 110, RR 16. BS slightly vocal and fine expiratory wheeze auscultated before and after Duoneb via SVN/MASK which was tolerated well. Pt has a loose NPC.
[2016-04-03] MEDS: PIPERACILLIN/TAZOBACTAM 4.5 GM in SODIUM CHLORIDE 100 ML IV SCH (23:12)
[2016-04-03] MEDS: INSULIN DETEMIR 1 UNIT/0.01 ML (LEVEMIR) DOSE SC SCH (23:13)
--- NOTE | 2016-04-03 23:30 | NUR ---
Accu check 334mg/dl. HS insulin administered approximately 30 minutes ago. Patient resting quietly. IV #20 gauge started in right a/c with one attempt. Patient tolerated well. Also obtained sterile cath UA and sent to Lab. Patient rested well through that procedure. Bed alarm on for safety.
--- NOTE | 2016-04-04 | NUR ---
Patient resting well Respirations 22 and non-labored. IV antibiotics administered as ordered.
[2016-04-04 00:18] VITALS: BP 125/70
[2016-04-04 01:38] LABS: BILIRUBIN,URINE Negative (Negative); CLARITY,URINE Clear; COLOR,URINE Yellow; GLUCOSE, URINE (UA) Trace (Negative); LEUKOCYTE ESTERASE ,URINE Negative (Negative); UROBILINOGEN,URINE 0.2 mg/dL (0.2-1.0)
[2016-04-04] MEDS: VANCOMYCIN COMPOUNDED BY PHARMACY IV SCH ×2 (02:00→20:00)
--- NOTE | 2016-04-04 02:00 | NUR ---
Patient continues to rest well. Arouses to verbal stimuli. Repositioned in bed. Bed alarm remains on.
[2016-04-04] MEDS: VANCOMYCIN 1250 MG in SODIUM CHLORIDE 250 ML IV SCH (02:45)
--- NOTE | 2016-04-04 03:30 | NUR ---
IV infiltrated and jun
--- NOTE | 2016-04-04 04:00 | NUR ---
Employee Health Nurse will be up start IV.
[2016-04-04 04:29] VITALS: BP 127/72
--- NOTE | 2016-04-04 05:45 | NUR ---
Dr Wiley called in to check status of patient. Asked if Anesthesia could start IV. Notified OR via message.
[2016-04-04] MEDS: PIPERACILLIN/TAZOBACTAM 4.5 GM in SODIUM CHLORIDE 100 ML IV SCH ×2 (06:00→12:19)
[2016-04-04] MEDS: LEVOTHYROXINE 100 MCG (LEVOTHROID) TABLET PO SCH (06:00)
--- NOTE | 2016-04-04 06:30 | NUR ---
Patient rested well tonight. Oxygen remains on at 3 liters. Arouses to verbal stimuli , but does not yell out and scream. Repositioned in bed. Called OR and spoke with Yocasta YEBOAH. She spoke with Anesthesia and they stated they would be up as soon as they could in between cases. Patient resting Respirations slightly labored at times. Has occasional cough. Bed alarm on for safety.
[2016-04-04] MEDS: INSULIN LISPRO 1 UNIT/0.01 ML (HUMALOG) DOSE SC SCH ×7 (06:35→21:00)
[2016-04-04] MEDS: ALBUTEROL/IPRATROPIUM 3MG-0.5MG/3ML (DUONEB) NEB VIAL INH SCH ×4 (07:00→19:00)
[2016-04-04 07:06] LABS: BASOPHILS % (AUTO) 0 % (0-2); EOSINOPHILS % (AUTO) 0 % (0-4); LYMPHOCYTES # (AUTO) 2.5 X10^3; MEAN CORPUSCULAR HGB CONC 32.2 g/dL (31.0-37.0); MEAN CORPUSCULAR VOLUME 93 FL (80-100); MONOCYTES # (AUTO) 1.1 X10^3; MONOCYTES % (AUTO) 6 % (3-11); NEUTROPHILS # (AUTO) 15.3 X10^3; NEUTROPHILS % (AUTO) 80 % (51-67); PLATELET COUNT 262 10^3uL (150-450); WHITE BLOOD COUNT 19.12 10^3uL (4.0-11.0)
[2016-04-04 07:21] LABS: ANION GAP 9.7 MEQ/L (3-15); CALCULATED IONIZED CALCIUM 5.2 mg/dL (3.8-4.6); MAGNESIUM* 1.8 mg/dL (1.6-2.3); TOTAL PROTEIN 5.3 g/dL (6.4-8.5)
--- NOTE | 2016-04-04 07:35 | NUR ---
Pt seems to be resting comfortably. wakens easily to name. Awaiting anesthesia for IV start. Yellow gown in place, bed alarm turned on for patient safety. Addendum: 04/04/16 at 0736 by Kathy Hernandez RN Remains on [facility].
[2016-04-04] MEDS: BUDESONIDE NEBS 0.5 MG/2ML (PULMICORT) AMP INH SCH (09:00)
[2016-04-04] MEDS: ENOXAPARIN 40 MG/0.4 ML (LOVENOX) SYR SC SCH (09:43)
[2016-04-04] MEDS: POLYETHYLENE GLYCOL 17 GM (MIRALAX) PACKET PO SCH (09:43)
[2016-04-04] MEDS: NICOTINE PATCH REMOVAL TOP SCH (09:44)
[2016-04-04] MEDS: predniSONE 20 MG (DELTASONE) TABLET PO SCH (09:44)
[2016-04-04] MEDS: amLODIPine 2.5MG (NORVASC) TAB PO SCH (09:44)
[2016-04-04] MEDS: LITHIUM CARBONATE 150 MG CAP PO SCH ×2 (09:44→17:07)
[2016-04-04] MEDS: NICOTINE 21 MG (NICODERM) PATCH TD SCH (09:44)
[2016-04-04] MEDS: lisINopril 10 MG (PRINIVIL) TABLET PO SCH (09:44)
[2016-04-04] MEDS ORDERED: WATER (STERILE) FOR INJECTION 10 ML ONE (09:49)
[2016-04-04] MEDS: ZIPRASIDONE 20 MG INJ (GEODON) VIAL IM SCH ×2 (09:55→21:00)
[2016-04-04] MEDS: MAGNESIUM HYDROXIDE 80MG/ML (MILK OF MAGNESIA) 30 ML UDC PO PRN (11:23)
--- NOTE | 2016-04-04 11:38 | NUR ---
MOM given as ordered for c/o constipation. Pt out of shower now.
[2016-04-04] MEDS ORDERED: LIDOCAINE PF 1% (XYLOCAINE) 2 ML VIAL INJ ONE (11:50)
--- NOTE | 2016-04-04 12:21 | NUR ---
Mike Ambriz CRNA successfully started an 18g Left external jugular IV- blood return noted. ZOsyn infusing as ordered. Dad at bedside.
[2016-04-04 12:53] VITALS: BP 145/69
--- NOTE | 2016-04-04 14:32 | PAIN MANAGEMENT ---
Date of note: 04/04/2016 Procedure: Peripheral IV placement This is a 65-year-old patient who presents on third floor with respiratory complications secondary to possible pneumonia. Anesthesia was consulted for the purpose of peripheral IV placement. She has a need for antibiotic administration. The patient has been poked multiple time. Anesthesia tried twice peripherally without success. The left EJ was noted, sterile prep used. An 18-gauge peripheral IV was placed in the left EJ and stitched in place with 2-0 silk and sterile dressing placed. It flushes and draws easily. The nurse was notified it was okay to use the peripheral IV for antibiotic administration. The patient tolerated the procedure well.
--- NOTE | 2016-04-04 14:45 | PT Daily Note Inpatient (E) ---
PT Daily Treatment Service Date/Time 04/04/16, 14:43 Medical Diagnosis: Physical Therapy: Precaution/Isolation: Standard Precautions Resuscitation Status: Full Code Fall Level: High Risk 51 or greater Subjective Oxygen Delivery: Nasal cannula O2 liters/minute: 2 Education/Plan Assessment PT attempted to see patient to see patient for evaluation this date, as Dr. Carlos stated she had been given meds this morning as was more calm and cooperative. Patient was more pleasant as she had been hollering at PT yesterday when PT attempted evaluation. Patient states she's in pain and doesn' t feel like participating in therapy at this time. Due to patient's hx of outbursts and being more calm PT stated she would recheck with patient another date. DEANA CALERO PT Apr 04, 2016 14:45
--- NOTE | 2016-04-04 15:19 | Progress Note (E) ---
Progress Note SUBJECTIVE Since starting ziprasidone, has been much calmer. Still having some episodes of crying out for help and insisting to be taken outside to smoke, but overall much more calm and cooperative with cares and more consolable and redirectable. C[employer] SUPERVISOR placed EJ IV for access. Vitals stable. Remains on 2 L when she will wear oxygen. WBC improved though still elevated. CRP remains totally normal and has been normal since admit. Chemistry stable. UA negative for signs of UTI. No callback from [facility] staff who were contacted to discuss her case. Case discussed with [facility] at [facility], 04/[facility]. Plan to have her counselor, Flower, see her tomorrow. On exam, resting in bed. Stirs to exam. Is not as agitated and answers questions but perseverates on "I want to go home as soon as possible." OBJECTIVE Vital Signs Date Time Temp Pulse Resp B/P Pulse Ox O2 Delivery O2 Flow Rate FiO2 04/04/16 12:53 98.1 97 20 145/69 92 Nasal cannula 04/04/16 04:29 3.00 I & O 04/03/16 04/04/16 Cumulative From/Thru 19:00 07:00 04/02/16 05:41 - 04/04/16 06:34 Intake Total 150 ml 940 ml Output Total 400 ml 800 ml 2300 ml Balance -250 ml -800 ml -1360 ml GEN: More calm and interactive. Still calling out at times, but much less agitated. HEENT: EOMI, clear sclerae. Edentulous. Exophthalmos. CV: Regular without murmur. PULM: Diminished breath sounds but better air movement compared to admit and better than 04/03. ABD: Soft, not apparently tender. Active bowel sounds. INTEG: Age related changes. Pallor. NEURO: Tremulous. Able to ambulate short distance but with shuffling gait and is unsteady still. Lab-Past 14 Days, 35 Results 04/02/16 06:25: Alanine Aminotransferase (ALT/SGPT) 44, Albumin 3.6#, Albumin/Globulin Ratio 1.565, Alkaline Phosphatase 119, Anion Gap 10.3, Aspartate Amino Transf (AST/ SGOT) 21, BUN/Creatinine Ratio 42H, Basophils # (Auto) 0.0, Basophils (%) (Auto ) 0, Blood Urea Nitrogen 35#H, C-Reactive Protein < 0.50, Calcium Level 9.7, Calcium/Ionized Calcium Ratio 4.7H, Calculated Osmolality 291, Carbon Dioxide Level 36H, Chloride Level 97L, Creatine Kinase MB 3.9, Creatinine 0.84, D-Dimer 425, Eosinophils # (Auto) 0.2, Eosinophils (%) (Auto) 1, Estimat Glomerular Filtration Rate 82.6, Estimated GFR (Non- 68.3, Glucose Level 415#*H, Hematocrit 41.60, Hemoglobin 13.7, Pemberton Level 0.95, Lymphocytes # ( Auto) 1.7, Lymphocytes (%) (Auto) 11L, Mean Corpuscular Hemoglobin 30.1, Mean Corpuscular Hemoglobin Concent 32.9, Mean Corpuscular Volume 91, Mean Platelet Volume 10.2H, Monocytes # (Auto) 0.9, Monocytes (%) (Auto) 6, ZC-Lfn-W-Type Natriuretic Peptide 178H, Neutrophils # (Auto) 12.7, Neutrophils (%) (Auto) 81H , Platelet Count 303#, Potassium Level 4.9, Red Blood Count 4.55, Red Cell Distribution Width 13.1, Sodium Level 137, Thyroid Stimulating Hormone (TSH) 1.70, Total Bilirubin 0.5, Total Creatine Kinase 193#H, Total Protein 5.9L, Troponin I < 0.012, White Blood Count 15.68H 04/03/16 05:25: Alanine Aminotransferase (ALT/SGPT) 33, Albumin 3.0L, Albumin/Globulin Ratio 1.304, Alkaline Phosphatase 69, Anion Gap 14.5, Aspartate Amino Transf (AST/SGOT ) 28, BUN/Creatinine Ratio 37H, Basophils # (Auto) , Basophils (%) (Auto) , Blood Urea Nitrogen 28H, Calcium Level 8.9, Calcium/Ionized Calcium Ratio 4.6, Calculated Osmolality 276L, Carbon Dioxide Level 25, Chloride Level 102, Creatinine 0.75, Eosinophils # (Auto) , Eosinophils (%) (Auto) , Estimat Glomerular Filtration Rate 94.1, Estimated GFR (Non- 77.8, Glucose Level 242#H, Hematocrit 40.50, Hemoglobin 12.9, Lymphocytes # (Auto) , Lymphocytes (%) (Auto) , Mean Corpuscular Hemoglobin 29.7, Mean Corpuscular Hemoglobin Concent 31.9, Mean Corpuscular Volume 93, Mean Platelet Volume 10.7H , Monocytes # (Auto) , Monocytes (%) (Auto) , Neutrophils # (Auto) , Neutrophils (%) (Auto) , Platelet Count 335, Potassium Level 5.0, Red Blood Count 4.34, Red Cell Distribution Width 13.1, Sodium Level 136, Total Bilirubin 0.7, Total Protein 5.3L, White Blood Count 23.26H, Absolute Band Neutrophils 0.0 , Atypical Lymphocytes 8, Band Neutrophils % 0, Basophils # (Manual) 0.0, Basophils % (Manual) 0, Blood Morphology Comment Normal, Differential Total Cells Counted 100, Eosinophils # 0.0, Eosinophils % (Manual) 0, Lymphocytes # 0.9, Lymphocytes % (Manual) 4L, Magnesium Level 1.6, Metamyelocytes % 0, Monocytes # 0.7, Monocytes % (Manual) 3, Neutrophils # 19.8, Segmented Neutrophils % 85H 04/04/16 01:00: Urine Bilirubin Negative, Urine Clarity Clear, Urine Collection Type Catheter, Urine Color Yellow, Urine Glucose (UA) TraceH, Urine Ketones Negative, Urine Leukocyte Esterase Negative, Urine Nitrite Negative, Urine Protein Negative, Urine RBC (Auto) Negative, Urine Specific Vaughn 1.015, Urine Urobilinogen 0.2 , Urine pH 7.0 04/04/16 07:00: Alanine Aminotransferase (ALT/SGPT) 28L, Albumin 3.0L, Albumin/Globulin Ratio 1.304, Alkaline Phosphatase 80, Anion Gap 9.7, Aspartate Amino Transf (AST/SGOT ) 24, BUN/Creatinine Ratio 30H, Basophils # (Auto) 0.0, Basophils (%) (Auto) 0, Blood Urea Nitrogen 23H, C-Reactive Protein 0.70, Calcium Level 10.0, Calcium/ Ionized Calcium Ratio 5.2H, Calculated Osmolality 280, Carbon Dioxide Level 31H , Chloride Level 104, Creatinine 0.76, Eosinophils # (Auto) 0.0, Eosinophils (% ) (Auto) 0, Estimat Glomerular Filtration Rate 92.7, Estimated GFR (Non- 76.6, Glucose Level 212H, Hematocrit 44.70, Hemoglobin 14.4, Lymphocytes # (Auto) 2.5, Lymphocytes (%) (Auto) 13L, Mean Corpuscular Hemoglobin 30.0, Mean Corpuscular Hemoglobin Concent 32.2, Mean Corpuscular Volume 93, Mean Platelet Volume 10.0H, Monocytes # (Auto) 1.1, Monocytes (%) ( Auto) 6, Neutrophils # (Auto) 15.3, Neutrophils (%) (Auto) 80H, Platelet Count 262, Potassium Level 4.8, Red Blood Count 4.80, Red Cell Distribution Width 13.2 , Sodium Level 140, Total Bilirubin 0.6, Total Protein 5.3L, White Blood Count 19.12H, Magnesium Level 1.8 MICRO 04/03 Blood culture Negative to date IMAGING 04/02/16 CHEST 1 VIEW, AP/PA ONLY* INDICATION: Dyspnea. 0655 hours. Since examination of 03/27/2016, heart size and pulmonary vascularity remain within normal limits. There is no evidence of pneumothorax or consolidation. Calcified granulomas in the pulmonary sesar. Overall, there has been no adverse change. IMPRESSION: Stable chest without acute abnormality or adverse change. REFERENCE 03/27/16 CHEST 1 VIEW, AP/PA ONLY* CLINICAL INDICATION: Patient with shortness of breath. EXAM: Portable chest x-ray upright view. COMPARISONS: Chest x-ray dated 03/22/2016. FINDINGS: The previously seen 7 mm right upper lobe nodule has decreased in size and density compared to the prior study but residual amorphous opacity in the region still present. There is no interval lung infiltrate. The remainder of lungs are clear. There is no pleural effusion or pneumothorax. Pulmonary vasculature and cardiac silhouette is within normal limits. The remainder of this exam shows no significant interval change compared to the prior study of comparison. IMPRESSION: 1: Interval decreased size and density of the previously seen 7 mm right upper lobe nodule. This may represent an infectious or inflammatory process. Follow up chest x-ray in 4 weeks is suggested to evaluate for interval resolution of this finding. 2: The remainder of the chest exam is stable with no interval acute cardiopulmonary process. ASSESSMENT Shy Hong is a 65 year old female admitted from ED 04/02 where she presented just 1 week after prior [id number] with SIRS/sepsis and COPD exacerbation attributed to pneumonia. She refused recommendation for care home hospitalization. Upon return to home she failed to demonstrate ability to care for herself and could not be supported by her family at home. She returned to ED 03/27 and again on 04/02 when she was admitted again with concerning signs for recurring pneumonia, but now also severe agitation/delirium concerning for acute psychosis. PLAN * Agitation/Delirium: Improving. Lorazepam, ziprasidone (confirmed to best of ability that she does not have a true allergy.) If her agitation and delirium cannot be controlled here, will advocate for transfer to tertiary care center where inpatient psychiatry consultation can be provided. Call placed to [facility] provider but no callback received. * Schizoaffective Disorder: Fluphenazine on hold and giving ziprasidone temporarily. Benztropine, bupropion, buspirone no longer on her home medication profile and these were reportedly stopped after her hospitalization from [place] 12/2015. Pemberton dose was 450 mg daily after that hospitalization but reduced here 03/2016 to 150 mg BID (300 mg total daily) due to elevated lithium level. Discuss with counselor who will eval patient in hospital 04/05. * SIRS/Sepsis: Resolving. Attributed to HCAP. * Acute on Chronic Respiratory Failure: Attributed to HCAP, COPD exacerbation, poor self-care at home, poor adherence to home oxygen prescription, continued smoking. * HCAP: Blood culture negative to date. No sputum for culture. Empiric levofloxacin, vancomycin. 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 Switched it to pip-tazo 04/03. * Leukocytosis: 15.68 on admit, increased to 23.26 04/03. Due to prednisone? Monitor trend. Noted CRP < 0.50 so HCAP diagnosis is a bit uncertain. * COPD with Acute Exacerbation: Duoneb scheduled, albuterol PRN. Budesonide. Prednisone (though noted steroids can sometimes aggravate delirium.) Needs prednisone taper. * F/E/N: Diabetic diet. Peripheral IV though access has been difficult to maintain. * Prophylaxis: Enoxaparin, SCDs. * Code Status: Full * Dispo: Inpatient. Acute agitation/delirium significantly impedes progress. Proffered skilled care for further recovery on prior admit but she adamantly refused. Now worried that she may have underlying acute psychosis and may need mental health hospitalization. Has few options for intermediate placement due to past experiences with other nursing homes. CHRONIC ISSUES * Constipation: Bowel regimen * HTN: Uncontrolled due to patient non-adherence. Improved with current regimen : amlodipine, lisinopril. * Diabetes Mellitus Type II: Basal/bolus regimen. Correction factor. * Hypothyroidism: Levothyroxine * Bipolar Disorder: Pemberton. Dose decreased on prior admit due to elevated lithium level. * Neuropathy: Gabapentin no longer in home medication profile. * Tobacco Abuse: Nicotine patch * Hypothyroidism: TSH normal. Levothyroxine. * Chronic Pain: Tramadol on hold. Acetaminophen * Irritable Bowel? Linaclotide (resume at discharge.) PAMELA FORD MD Apr 04, 2016 14:04
[2016-04-04] MEDS ORDERED: VANCOMYCIN 1250 MG in SODIUM CHLORIDE 250 ML IV SCH (16:00)
[2016-04-04 16:07] VITALS: BP 132/70
--- NOTE | 2016-04-04 17:29 | NUR ---
Pt resting intermittently throughout evening shift. Wakes easily to name. Cooperative. Trying to call her dad right now. 18g LEJ IV intact- SL. Will cont to monitor patient closely.
[2016-04-04 19:42] VITALS: BP 127/81
[2016-04-04] MEDS: LORazepam 2 MG/ML (ATIVAN) 1 ML VIAL IV PRN (19:58)
--- NOTE | 2016-04-04 19:58 | NUR ---
Patient yelling and screaming. Very agitated. Ativan administered IV as ordered per Hailey Waller RN.
[2016-04-04] MEDS: INSULIN DETEMIR 1 UNIT/0.01 ML (LEVEMIR) DOSE SC SCH (21:00)
[2016-04-04] MEDS: AMOXICILLIN/CLAVULANATE 875MG-125MG (AUGMENTIN) TABLET PO SCH (21:00)
--- NOTE | 2016-04-04 21:00 | NUR ---
Patient still yelling off and on. Geodon administered as ordered at [facility] for agitation. Patient up to commode and voided. Returned to bed. Has small open area on upper buttocks area. Side rails up x2. Bed alarm on. Wanting her dad. Reminded patient that dad was at home sleeping and that she would see him tomorrow.
[2016-04-05 00:24] VITALS: BP 147/83
[2016-04-05] MEDS: LORazepam 2 MG/ML (ATIVAN) 1 ML VIAL IV PRN (00:40)
--- NOTE | 2016-04-05 00:40 | NUR ---
Has rested fair. Still calls out some. Trying to get OOB and wanting her dad. Ativan 1mg administered as ordered IV. Patient calmed down shortly after that dose.
--- NOTE | 2016-04-05 02:30 | NUR ---
Starting to get agitated, yet sleepy. Trying to get OOB. Patient pulled left EJ out. Staff sat with patient for 20 minutes, and she went back to sleep.
[2016-04-05 04:20] VITALS: BP 129/74
[2016-04-05] MEDS: LEVOTHYROXINE 100 MCG (LEVOTHROID) TABLET PO SCH (05:48)
--- NOTE | 2016-04-05 06:30 | NUR ---
Patient rested well the rest of the night. Did eat a snack. Wanted a coke, which she drank a few sips of diet coke. Oxygen remains on at 2 liters per nasal cannula. Patient has occasional non-productive cough. Bed alarm for safety.
[2016-04-05] MEDS: ALBUTEROL/IPRATROPIUM 3MG-0.5MG/3ML (DUONEB) NEB VIAL INH SCH ×4 (07:24→20:59)
[2016-04-05] MEDS: BUDESONIDE NEBS 0.5 MG/2ML (PULMICORT) AMP INH SCH (07:25)
--- NOTE | 2016-04-05 07:27 | NUR ---
Pt found sleeping in bed on 3 l/min NC, SPO2 98%, HR 86, RR 16 and non labored, BS fine expiratory rhonchi throughout. Duoneb and Pulmicort given vi SVN/MASK while sleeping, tolerated well. No change in BS post Tx. O2 titrated to 2 l/min NC equal to home use.
[2016-04-05] MEDS: predniSONE 20 MG (DELTASONE) TABLET PO SCH (07:37)
[2016-04-05] MEDS: LITHIUM CARBONATE 150 MG CAP PO SCH ×2 (07:38→17:53)
[2016-04-05] MEDS: INSULIN LISPRO 1 UNIT/0.01 ML (HUMALOG) DOSE SC SCH ×7 (07:39→20:36)
[2016-04-05 07:54] VITALS: BP 140/83
[2016-04-05] MEDS ORDERED: NS FLUSH 10 ML PRN IV (08:45)
[2016-04-05] MEDS ORDERED: NS FLUSH 3 ML PRN IV (08:45)
[2016-04-05] MEDS: NICOTINE PATCH REMOVAL TOP SCH (08:59)
[2016-04-05] MEDS ORDERED: NS FLUSH 3 ML DAILY IV SCH (09:00)
[2016-04-05] MEDS: ENOXAPARIN 40 MG/0.4 ML (LOVENOX) SYR SC SCH (10:25)
[2016-04-05] MEDS: AMOXICILLIN/CLAVULANATE 875MG-125MG (AUGMENTIN) TABLET PO SCH ×2 (10:26→20:36)
[2016-04-05] MEDS: DOCUSATE SODIUM 100 MG (COLACE) CAP PO PRN (10:26)
[2016-04-05] MEDS: NICOTINE 21 MG (NICODERM) PATCH TD SCH (10:26)
[2016-04-05] MEDS: lisINopril 10 MG (PRINIVIL) TABLET PO SCH (10:26)
[2016-04-05] MEDS: amLODIPine 2.5MG (NORVASC) TAB PO SCH (10:26)
--- NOTE | 2016-04-05 11:01 | NUR ---
Pt found reclining in her chair on 2 l/min NC, SPO2 93%, HR 67, RR 14 and non labored with clear BS before and after Duoneb via SVN/MASK. Pt did not wake during my visit. Addendum: 04/05/16 at 1107 by Rizwan Jackson RT Coarse NPC witnessed after this note was written.
[2016-04-05] MEDS ORDERED: WATER (STERILE) FOR INJECTION 10 ML ONE ×2 (11:04→18:46)
[2016-04-05] MEDS: ZIPRASIDONE 20 MG INJ (GEODON) VIAL IM SCH (11:08)
[2016-04-05] MEDS: POLYETHYLENE GLYCOL 17 GM (MIRALAX) PACKET PO SCH (11:08)
--- NOTE | 2016-04-05 11:16 | NUR ---
Geodon 10 mg im given late as patient was somulent earlier and this rn verified with taylor, nurse manager heart and dr krishnamurthy, starr to administer per dr krishnamurthy
[2016-04-05 11:27] VITALS: BP 147/66
--- NOTE | 2016-04-05 15:37 | NUR ---
Pt found sleeping in bed on 3 l/min NC, SPO2 95%, HR 75, RR 14 and non labored. BS slightly coarse before Duoneb via SVN/MASK. BS unchanged post Tx. Pt did not wake during my visit.
--- NOTE | 2016-04-05 15:46 | NUR ---
MULTIDISCIPLINARY MTG/DR. CARLOS: Pt. admitted for HCAP concerns and continued COPD exacerbation along with delirium and aggravation of Pt. mental health disorders. [facility] and family scheduled to be here at 14:00 to discuss discharge needs of Pt. Pt. has been receiving geodone to help de-escalate Pt. moods and aggravation. Pt. antibiotics will de-escalate today. Long discussion with Pt. father and son with Dr. Carlos, DANIEL Shepherd and [facility] counselor. Discussed Pt. medical and psychiatric needs and possibly discharge needs of skilled care vs inpatient psych to adjust her medications.
[2016-04-05 16:20] VITALS: BP 131/69
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
[2016-04-05] MEDS: ZIPRASIDONE 20 MG (GEODON) CAP PO SCH (17:53)
[2016-04-05] MEDS: ZIPRASIDONE 20 MG INJ (GEODON) VIAL IM PRN (19:09)
[2016-04-05 20:22] VITALS: BP 136/72
[2016-04-05] MEDS: INSULIN DETEMIR 1 UNIT/0.01 ML (LEVEMIR) DOSE SC SCH (20:36)
--- NOTE | 2016-04-05 22:00 | NUR ---
Shy is up in bed and then to chair this AM. She is drowsy and opens eyes for medications and some bites of food. Resting comfortably in chair her skin is warm and dry and respirations are even and unlabored. Bed alarms on for safety. She is compliant with cares this AM. Transition to oral geodon this afternoon per Dr. Carlos. BG monitored closely and sliding scale insulin is given as needed throughout this shift. The patient becomes restless this afternoon. Hollering out, crying and screaming. Counseling is provided and safety measures explained to Shy. Geodon IM administered. While up in chair Shy is able to eat bites and take pills. With SBA she ambulates to her bed and family is in the room to visit. Patient expresses roseanne at seeing family. At the time of this note the patient is sleeping under covers. Report is given to Kiya YEBOAH and care relinquished.
[2016-04-06 00:49] VITALS: BP 138/73
[2016-04-06 05:43] VITALS: BP 139/81
[2016-04-06 06:16] LABS: BASOPHILS % (AUTO) 0 % (0-2); EOSINOPHILS # (AUTO) 0.1 10^3uL; EOSINOPHILS % (AUTO) 1 % (0-4); LYMPHOCYTES # (AUTO) 3.4 X10^3; MEAN CORPUSCULAR HEMOGLOBIN 29.5 PG (26.0-34.0); MEAN CORPUSCULAR HGB CONC 32.2 g/dL (31.0-37.0); MEAN CORPUSCULAR VOLUME 92 FL (80-100); MEAN PLATELET VOLUME 10.1 FL (6.0-9.5); MONOCYTES # (AUTO) 1.1 X10^3; MONOCYTES % (AUTO) 7 % (3-11); NEUTROPHILS # (AUTO) 11.3 X10^3; NEUTROPHILS % (AUTO) 71 % (51-67); PLATELET COUNT 251 10^3uL (150-450); WHITE BLOOD COUNT 15.95 10^3uL (4.0-11.0)
[2016-04-06] MEDS: LEVOTHYROXINE 100 MCG (LEVOTHROID) TABLET PO SCH (06:39)
[2016-04-06 06:56] LABS: ALBUMIN 3.3 g/dL (3.4-5.0); PHOSPHORUS 2.9 mg/dL (2.4-4.9)
[2016-04-06 07:44] VITALS: BP 161/75
[2016-04-06] MEDS: ALBUTEROL/IPRATROPIUM 3MG-0.5MG/3ML (DUONEB) NEB VIAL INH SCH ×4 (07:45→22:23)
[2016-04-06] MEDS: BUDESONIDE NEBS 0.5 MG/2ML (PULMICORT) AMP INH SCH (07:45)
--- NOTE | 2016-04-06 07:51 | NUR ---
Pt sitting up in chair. Skin warm, dry, intact. Resprs nonlabored, even on 2L NC. Pt pleasant and carrying conversations this morning. Call light within reach. Pressure and tabs alarm on for safety. Room close to nurse's station for frequent monitoring.
[2016-04-06] MEDS: POLYETHYLENE GLYCOL 17 GM (MIRALAX) PACKET PO SCH (08:22)
[2016-04-06] MEDS: ENOXAPARIN 40 MG/0.4 ML (LOVENOX) SYR SC SCH (08:23)
[2016-04-06] MEDS: amLODIPine 2.5MG (NORVASC) TAB PO SCH (08:26)
[2016-04-06] MEDS: ZIPRASIDONE 20 MG (GEODON) CAP PO SCH ×2 (08:26→17:05)
[2016-04-06] MEDS: AMOXICILLIN/CLAVULANATE 875MG-125MG (AUGMENTIN) TABLET PO SCH ×2 (08:26→20:59)
[2016-04-06] MEDS: LITHIUM CARBONATE 150 MG CAP PO SCH ×2 (08:26→17:05)
[2016-04-06] MEDS: predniSONE 20 MG (DELTASONE) TABLET PO SCH (08:26)
[2016-04-06] MEDS: lisINopril 10 MG (PRINIVIL) TABLET PO SCH (08:27)
[2016-04-06] MEDS: NICOTINE PATCH REMOVAL TOP SCH (08:27)
[2016-04-06] MEDS: NICOTINE 21 MG (NICODERM) PATCH TD SCH (08:29)
[2016-04-06] MEDS: INSULIN LISPRO 1 UNIT/0.01 ML (HUMALOG) DOSE SC SCH ×6 (08:31→20:59)
[2016-04-06 11:30] VITALS: BP 158/66
--- NOTE | 2016-04-06 11:52 | NUR ---
Blood sugar is 433 at this time. [place] notified, new orders entered.
[2016-04-06] MEDS ORDERED: INSULIN LISPRO 1 UNIT/0.01 ML (HUMALOG) DOSE SC SCH (12:00)
[2016-04-06] MEDS ORDERED: WATER (STERILE) FOR INJECTION 10 ML VIAL INJ PRN (12:05)
--- NOTE | 2016-04-06 13:06 | PT Daily Note Inpatient (E) ---
PT Daily Treatment Service Date/Time 04/06/16, 13:03 Medical Diagnosis: (1) Physical deconditioning ICD Code: R53.81 (2) COPD with acute exacerbation ICD Code: J44.1 (3) Acute respiratory failure with hypoxia ICD Code: J96.01 Physical Therapy: Precaution/Isolation: Standard Precautions Resuscitation Status: Full Code Fall Level: High Risk 51 or greater Subjective Oxygen Delivery: Nasal cannula O2 liters/minute: 2.5 Education/Plan Education PT went to see the patient once again to complete initial evaluation. Patient was more alert this date and reports she feels weak. PT stated she is here to help with getting patient stronger, patient then states "I am here to rest, I don't want to do this." She has refused therapy services the last two days. DEANA CALERO PT Apr 06, 2016 13:06
--- NOTE | 2016-04-06 15:27 | NUR ---
Oxygen increased to 3LNC at this time. Sp02 at 2LNC reported by FERNANDO Acuna to be at 88
[2016-04-06 15:35] VITALS: BP 152/86
--- NOTE | 2016-04-06 17:20 | NUR ---
1700 accucheck= 476. Dr. Carlos notified. Orders to increase meal time Humalog to 10 units and HS Levemir to 30 units.
--- NOTE | 2016-04-06 18:12 | NUR ---
Patient sitting up in recliner consuming supper. 15 unites of insulin provided with meal for sugar of 476. Patient denies pain. Reiterates plan to stay until Saturday. TABS and yellow gown intact for safety. Call light in reach.
--- NOTE | 2016-04-06 18:55 | Progress Note (E) ---
Progress Note SUBJECTIVE Mentation continues to improve. Mood is more stable. Still asking repeatedly to go home but she is more readily able to have conversation about her mental health and medical issues. Able to redirect and reorient her. Glucose has been high last few days, likely due to ziprasidone. However, this medication has been quite effective in helping her mood. Increased insulin. Planning hospitalization through the to help stabilize her medical issues, then reassess with [facility] on Saturday regarding mental health plan of care. OBJECTIVE Vital Signs Date Time Temp Pulse Resp B/P Pulse Ox O2 Delivery O2 Flow Rate FiO2 04/06/16 15:35 97.8 117 18 152/86 88 Nasal cannula 04/06/16 05:43 2.00 I & O 04/05/16 04/06/16 Cumulative From/Thru 19:00 07:00 04/02/16 05:41 - 04/06/16 05:44 Intake Total 680 ml 387 ml 2776 ml Output Total 1000 ml 1000 ml 4650 ml Balance -320 ml -613 ml -1874 ml GEN: Sitting in chair. More alert, interactive, thought process more organized. HEENT: EOMI, clear sclerae. Edentulous. Exophthalmos. CV: Regular without murmur. PULM: Diminished breath sounds, better air movement compared to admit. ABD: Soft, not apparently tender. Active bowel sounds. INTEG: Age related changes. Pallor. NEURO: Able to ambulate short distance but with shuffling gait and is unsteady still. Lab-Past 14 Days, 35 Results 04/02/16 06:25: Alanine Aminotransferase (ALT/SGPT) 44, Albumin 3.6#, Albumin/Globulin Ratio 1.565, Alkaline Phosphatase 119, Anion Gap 10.3, Aspartate Amino Transf (AST/ SGOT) 21, BUN/Creatinine Ratio 42H, Basophils # (Auto) 0.0, Basophils (%) (Auto ) 0, Blood Urea Nitrogen 35#H, C-Reactive Protein < 0.50, Calcium Level 9.7, Calcium/Ionized Calcium Ratio 4.7H, Calculated Osmolality 291, Carbon Dioxide Level 36H, Chloride Level 97L, Creatine Kinase MB 3.9, Creatinine 0.84, D-Dimer 425, Eosinophils # (Auto) 0.2, Eosinophils (%) (Auto) 1, Estimat Glomerular Filtration Rate 82.6, Estimated GFR (Non- 68.3, Glucose Level 415#*H, Hematocrit 41.60, Hemoglobin 13.7, Quintana Level 0.95, Lymphocytes # ( Auto) 1.7, Lymphocytes (%) (Auto) 11L, Mean Corpuscular Hemoglobin 30.1, Mean Corpuscular Hemoglobin Concent 32.9, Mean Corpuscular Volume 91, Mean Platelet Volume 10.2H, Monocytes # (Auto) 0.9, Monocytes (%) (Auto) 6, HD-Bxk-I-Type Natriuretic Peptide 178H, Neutrophils # (Auto) 12.7, Neutrophils (%) (Auto) 81H , Platelet Count 303#, Potassium Level 4.9, Red Blood Count 4.55, Red Cell Distribution Width 13.1, Sodium Level 137, Thyroid Stimulating Hormone (TSH) 1.70, Total Bilirubin 0.5, Total Creatine Kinase 193#H, Total Protein 5.9L, Troponin I < 0.012, White Blood Count 15.68H 04/03/16 05:25: Alanine Aminotransferase (ALT/SGPT) 33, Albumin 3.0L, Albumin/Globulin Ratio 1.304, Alkaline Phosphatase 69, Anion Gap 14.5, Aspartate Amino Transf (AST/SGOT ) 28, BUN/Creatinine Ratio 37H, Basophils # (Auto) , Basophils (%) (Auto) , Blood Urea Nitrogen 28H, Calcium Level 8.9, Calcium/Ionized Calcium Ratio 4.6, Calculated Osmolality 276L, Carbon Dioxide Level 25, Chloride Level 102, Creatinine 0.75, Eosinophils # (Auto) , Eosinophils (%) (Auto) , Estimat Glomerular Filtration Rate 94.1, Estimated GFR (Non- 77.8, Glucose Level 242#H, Hematocrit 40.50, Hemoglobin 12.9, Lymphocytes # (Auto) , Lymphocytes (%) (Auto) , Mean Corpuscular Hemoglobin 29.7, Mean Corpuscular Hemoglobin Concent 31.9, Mean Corpuscular Volume 93, Mean Platelet Volume 10.7H , Monocytes # (Auto) , Monocytes (%) (Auto) , Neutrophils # (Auto) , Neutrophils (%) (Auto) , Platelet Count 335, Potassium Level 5.0, Red Blood Count 4.34, Red Cell Distribution Width 13.1, Sodium Level 136, Total Bilirubin 0.7, Total Protein 5.3L, White Blood Count 23.26H, Absolute Band Neutrophils 0.0 , Atypical Lymphocytes 8, Band Neutrophils % 0, Basophils # (Manual) 0.0, Basophils % (Manual) 0, Blood Morphology Comment Normal, Differential Total Cells Counted 100, Eosinophils # 0.0, Eosinophils % (Manual) 0, Lymphocytes # 0.9, Lymphocytes % (Manual) 4L, Magnesium Level 1.6, Metamyelocytes % 0, Monocytes # 0.7, Monocytes % (Manual) 3, Neutrophils # 19.8, Segmented Neutrophils % 85H 04/04/16 01:00: Urine Bilirubin Negative, Urine Clarity Clear, Urine Collection Type Catheter, Urine Color Yellow, Urine Glucose (UA) TraceH, Urine Ketones Negative, Urine Leukocyte Esterase Negative, Urine Nitrite Negative, Urine Protein Negative, Urine RBC (Auto) Negative, Urine Specific [place] 1.015, Urine Urobilinogen 0.2 , Urine pH 7.0 04/04/16 07:00: Alanine Aminotransferase (ALT/SGPT) 28L, Albumin 3.0L, Albumin/Globulin Ratio 1.304, Alkaline Phosphatase 80, Anion Gap 9.7, Aspartate Amino Transf (AST/SGOT ) 24, BUN/Creatinine Ratio 30H, Basophils # (Auto) 0.0, Basophils (%) (Auto) 0, Blood Urea Nitrogen 23H, C-Reactive Protein 0.70, Calcium Level 10.0, Calcium/ Ionized Calcium Ratio 5.2H, Calculated Osmolality 280, Carbon Dioxide Level 31H , Chloride Level 104, Creatinine 0.76, Eosinophils # (Auto) 0.0, Eosinophils (% ) (Auto) 0, Estimat Glomerular Filtration Rate 92.7, Estimated GFR (Non- 76.6, Glucose Level 212H, Hematocrit 44.70, Hemoglobin 14.4, Lymphocytes # (Auto) 2.5, Lymphocytes (%) (Auto) 13L, Mean Corpuscular Hemoglobin 30.0, Mean Corpuscular Hemoglobin Concent 32.2, Mean Corpuscular Volume 93, Mean Platelet Volume 10.0H, Monocytes # (Auto) 1.1, Monocytes (%) ( Auto) 6, Neutrophils # (Auto) 15.3, Neutrophils (%) (Auto) 80H, Platelet Count 262, Potassium Level 4.8, Red Blood Count 4.80, Red Cell Distribution Width 13.2 , Sodium Level 140, Total Bilirubin 0.6, Total Protein 5.3L, White Blood Count 19.12H, Magnesium Level 1.8 04/06/16 06:01: Albumin 3.3L, Anion Gap 11.0, Basophils # (Auto) 0.0, Basophils (%) (Auto) 0, Blood Urea Nitrogen 28H, Calcium Level 10.6, Carbon Dioxide Level 32H, Chloride Level 102, Creatinine 0.79, Eosinophils # (Auto) 0.1, Eosinophils (%) (Auto) 1, Estimat Glomerular Filtration Rate 88.7, Estimated GFR (Non- 73.3, Glucose Level 268#H, Hematocrit 45.00, Hemoglobin 14.5, Lymphocytes # ( Auto) 3.4, Lymphocytes (%) (Auto) 21, Mean Corpuscular Hemoglobin 29.5, Mean Corpuscular Hemoglobin Concent 32.2, Mean Corpuscular Volume 92, Mean Platelet Volume 10.1H, Monocytes # (Auto) 1.1, Monocytes (%) (Auto) 7, Neutrophils # ( Auto) 11.3, Neutrophils (%) (Auto) 71H, Phosphorus Level 2.9#, Platelet Count 251, Potassium Level 4.7, Red Blood Count 4.92, Red Cell Distribution Width 13.1 , Sodium Level 140, White Blood Count 15.95H MICRO 04/03 Blood culture Negative to date IMAGING 04/02/16 CHEST 1 VIEW, AP/PA ONLY* INDICATION: Dyspnea. 0655 hours. Since examination of 03/27/2016, heart size and pulmonary vascularity remain within normal limits. There is no evidence of pneumothorax or consolidation. Calcified granulomas in the pulmonary sesar. Overall, there has been no adverse change. IMPRESSION: Stable chest without acute abnormality or adverse change. REFERENCE 03/27/16 CHEST 1 VIEW, AP/PA ONLY* CLINICAL INDICATION: Patient with shortness of breath. EXAM: Portable chest x-ray upright view. COMPARISONS: Chest x-ray dated 03/22/2016. FINDINGS: The previously seen 7 mm right upper lobe nodule has decreased in size and density compared to the prior study but residual amorphous opacity in the region still present. There is no interval lung infiltrate. The remainder of lungs are clear. There is no pleural effusion or pneumothorax. Pulmonary vasculature and cardiac silhouette is within normal limits. The remainder of this exam shows no significant interval change compared to the prior study of comparison. IMPRESSION: 1: Interval decreased size and density of the previously seen 7 mm right upper lobe nodule. This may represent an infectious or inflammatory process. Follow up chest x-ray in 4 weeks is suggested to evaluate for interval resolution of this finding. 2: The remainder of the chest exam is stable with no interval acute cardiopulmonary process. ASSESSMENT Shy Hong is a 65 year old female admitted from ED 04/02 where she presented just 1 week after prior discharge 03/26 from [id number] with SIRS/sepsis and COPD exacerbation attributed to pneumonia. She refused recommendation for fpc hospitalization. Upon return to home she failed to demonstrate ability to care for herself and could not be supported by her family at home. She returned to ED 03/27 and again on 04/02 when she was admitted again with concerning signs for recurring pneumonia, but now also severe agitation/delirium concerning for acute psychosis. PLAN * Agitation/Delirium: Improving. Lorazepam, ziprasidone (confirmed to best of ability that she does not have a true allergy.) If her agitation and delirium cannot be controlled here, will advocate for transfer to tertiary care center where inpatient psychiatry consultation can be provided. * Schizoaffective Disorder: Fluphenazine on hold and giving ziprasidone temporarily. Benztropine, bupropion, buspirone no longer on her home medication profile and these were reportedly stopped after her hospitalization from [place] 12/2015. Quintana dose was 450 mg daily after that hospitalization but reduced here 03/2016 to 150 mg BID (300 mg total daily) due to elevated lithium level. Discussed with counselor who met with son, father, and patient in hospital 04/05. In her long history with patient, mood regulation has been a constant problem. For now, switched to ziprasidone which is effective and which she is tolerating. Transition from IM to PO dosing 04/05. * SIRS/Sepsis: Resolving. Attributed to HCAP. * Acute on Chronic Respiratory Failure: Attributed to HCAP, COPD exacerbation, poor self-care at home, poor adherence to home oxygen prescription, continued smoking. * HCAP: Blood culture negative to date. No sputum for culture. Empiric levofloxacin, vancomycin. 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 Switched it to pip-tazo 04/03 and deescalated to amox/ clav 04/04. * Leukocytosis: 15.68 on admit, increased to 23.26 04/03, trended down to 15.95 04/06. Monitor trend. Noted CRP < 0.50 so HCAP diagnosis is a bit uncertain. * COPD with Acute Exacerbation: Duoneb scheduled, albuterol PRN. Budesonide. Prednisone (though noted steroids can sometimes aggravate delirium.) Needs prednisone taper. * F/E/N: Diabetic diet. Peripheral IV though access has been difficult to maintain. * Prophylaxis: Enoxaparin, SCDs. * Code Status: Full * Dispo: Inpatient. Acute agitation/delirium significantly impedes progress. Proffered skilled care for further recovery on prior admit but she adamantly refused. Now worried that she may have underlying acute psychosis and may need mental health hospitalization. Has few options for exterminator termite placement due to past experiences with other nursing homes. For now, treat acute agitation and COPD. Reassess for medical discharge 04/09 and psych transfer if necessary. CHRONIC ISSUES * Constipation: Bowel regimen * HTN: Uncontrolled due to patient non-adherence. Improved with current regimen : amlodipine, lisinopril. * Diabetes Mellitus Type II: Basal/bolus regimen. Correction factor. * Hypothyroidism: Levothyroxine * Bipolar Disorder: Quintana. Dose decreased on prior admit due to elevated lithium level. * Neuropathy: Gabapentin no longer in home medication profile. * Tobacco Abuse: Nicotine patch * Hypothyroidism: TSH normal. Levothyroxine. * Chronic Pain: Tramadol on hold. Acetaminophen * Irritable Bowel? Linaclotide (resume at discharge.) PAMELA FORD MD Apr 06, 2016 18:55
[2016-04-06 19:44] VITALS: BP 140/89
[2016-04-06] MEDS: INSULIN DETEMIR 1 UNIT/0.01 ML (LEVEMIR) DOSE SC SCH (21:00)
[2016-04-06] MEDS ORDERED: INSULIN DETEMIR 1 UNIT/0.01 ML (LEVEMIR) DOSE SC SCH (21:00)
--- NOTE | 2016-04-06 21:30 | NUR ---
Pt c/o feeling like a "pill is stuck" in her throat. Encouraged pt to drink fluids. Did not notice anything obstructing airway. Will continue to monitor.
[2016-04-06] MEDS: ZIPRASIDONE 20 MG INJ (GEODON) VIAL IM PRN (22:07)
--- NOTE | 2016-04-06 22:07 | NUR ---
Pt cont to worry that she has a pill stuck in her throat. Continued to encourage pt to drink liquids. Discussed with pt that she is breathing fine and swallowing w/o difficulty so it is very unlikely that anything is obstructing her airway. Pt asks "can't they just do surgery? Can I have something to help me relax?" 10mg PRN geodon given via deep IM to R thigh.
[2016-04-07] VITALS (7 sets, daily range): BP systolic 110–143; BP diastolic 69–77
[2016-04-07] MEDS: LEVOTHYROXINE 100 MCG (LEVOTHROID) TABLET PO SCH (05:54)
[2016-04-07] MEDS: ACETAMINOPHEN 325 MG TAB (TYLENOL) PO PRN ×2 (05:54→08:12)
--- NOTE | 2016-04-07 06:16 | NUR ---
Pt rests in long intervals after Geodon administration. Tearful this morning. States "I miss my family." Encouraged pt that her dad and son would most likely be here to visit later in the day." Per pt request, morning pills given in pudding to ease swallowing. C/o MULLEN this morning; prn tylenol given. No further needs at this time.
[2016-04-07] MEDS: ALBUTEROL/IPRATROPIUM 3MG-0.5MG/3ML (DUONEB) NEB VIAL INH SCH ×3 (08:08→16:23)
[2016-04-07] MEDS: BUDESONIDE NEBS 0.5 MG/2ML (PULMICORT) AMP INH SCH (08:08)
[2016-04-07] MEDS: AMOXICILLIN/CLAVULANATE 875MG-125MG (AUGMENTIN) TABLET PO SCH ×2 (08:12→21:04)
[2016-04-07] MEDS: POLYETHYLENE GLYCOL 17 GM (MIRALAX) PACKET PO SCH (08:12)
[2016-04-07] MEDS: NICOTINE 21 MG (NICODERM) PATCH TD SCH (08:12)
[2016-04-07] MEDS: ENOXAPARIN 40 MG/0.4 ML (LOVENOX) SYR SC SCH (08:12)
[2016-04-07] MEDS: LITHIUM CARBONATE 150 MG CAP PO SCH ×2 (08:13→17:06)
[2016-04-07] MEDS: lisINopril 10 MG (PRINIVIL) TABLET PO SCH (08:13)
[2016-04-07] MEDS: predniSONE 20 MG (DELTASONE) TABLET PO SCH (08:13)
[2016-04-07] MEDS: amLODIPine 2.5MG (NORVASC) TAB PO SCH (08:13)
[2016-04-07] MEDS: NICOTINE PATCH REMOVAL TOP SCH (08:14)
[2016-04-07] MEDS: ZIPRASIDONE 20 MG (GEODON) CAP PO SCH ×2 (08:14→17:06)
[2016-04-07] MEDS: INSULIN LISPRO 1 UNIT/0.01 ML (HUMALOG) DOSE SC SCH ×7 (08:15→21:05)
--- NOTE | 2016-04-07 10:07 | NUR ---
Pt has been to shower this AM, ate bfst without difficulty. C/o headache- Tylenol given with AM meds. No IV site. Pt remains on 2L nc. Call light within reach, pressure alarm intact for patient safety.
--- NOTE | 2016-04-07 11:49 | Progress Note-A/P (E) ---
Progress Note Subjective: Patient is reporting a headache this morning. She took a tylenol for this. Not a lot of improvement. Family at bedside. Discussed care and plan. Objective: Current Medications Acetaminophen 650 mg Q6H PRN PO Ondansetron 4 mg Q6H PRN IV Amlodipine 2.5 mg DAILY PO Budesonide 0.5 mg DAILY INH Levothyroxine 100 mcg DAILY@0600 PO Lisinopril 10 mg DAILY PO Polyethylene Glycol 17 gm DAILY PO Tramadol 50-100mg q 6 hours prn Q6H PRN PO Prednisone 40 mg DAILY@0800 PO Enoxaparin 40 mg Q24HR SC Nicotine 21 mg DAILY TD Lorazepam 1 mg Q2H PRN IV Albuterol Sulfate 0.083% Neb Solutio) 2.5 mg Q4H PRN INH Calcium Carbonate 300 mg Q8H PRN PO Al Hydrox/Mg Hydrox/Simethicone 30 ml Q6H PRN PO Ondansetron 4 mg Q6H PRN IV Promethazine Q6H PRN IV Magnesium Hydroxide 30 ml DAILY PRN PO Polyethylene Glycol 17 gm DAILY PRN PO Docusate 100 mg BID PRN PO Dextrose 15 gm Q15M PRN PO Dextrose PRN IV Glucagon 1 mg PRN PRN IM Insulin Human Lispro QIDACHS SC Ziprasidone 10 mg Q6H PRN IM Amoxicillin/ Clavulanate 875 mg Q12HR PO Insulin Detemir 30 unit HS SC Insulin Human Lispro 10 unit TIDWM SC Albuterol/ Ipratropium 3 ml BID INH Vital Signs Date Time Temp Pulse Resp B/P Pulse Ox O2 Delivery O2 Flow Rate FiO2 04/07/16 08:30 97.5 89 20 140/77 90 Nasal cannula 04/06/16 05:43 2.00 I & O Past 24 hrs 04/07/16 07:00 Intake Total 4014 ml Output Total 3300 ml Balance 714 ml Intake Oral 4014 ml Output Urine Total 3300 ml Physical Exam General--Awake and alert. No distress. HEENT--Normocephalic. MMM in oral cavity. Lungs--Clear to auscultation bilaterally. Nonlabored respirations. Heart--RRR. No murmurs. Abdomen--Normal bowel sounds. Soft. Nondistended. Nontender. Extremities--No edema. Past 24 hour Lab Results Microbiology 04/02/16 Blood Culture - Preliminary, Resulted No Growth in 4 days Imaging Results 04.02.16 CXR IMPRESSION: Stable chest without acute abnormality or adverse change. Assessment/Plan Agitation/Delirium Much improving. Continue lorazepam and ziprasidone (despite reported allergy no reaction could be confirmed) If her agitation and delirium cannot be controlled here, will advocate for transfer to tertiary care center where inpatient psychiatry consultation can be provided, however she is much improved. Schizoaffective Disorder/bipolar disorder Changed fluphenazine to ziprasidone. Benztropine, bupropion, buspirone no longer on her home medication profile and these were reportedly stopped after her hospitalization from [place] 12/2015. Montara dose was 450 mg daily after that hospitalization but reduced here 03/2016 to 150 mg BID (300 mg total daily ) due to elevated lithium level. Dr. Carlos discussed with counselor who met with son, father, and patient in hospital 04/05. In her long history with patient, mood regulation has been a constant problem. For now, continue ziprasidone which is effective and which she is tolerating. Transitioned from IM to PO dosing 04/05. Sepsis Continues to meet with tachycardia and leukocytosis. Possibly related to steroids. Attributed to HAP. Treating below. HAP Evidenced by leukocytosis and hypoxia. BC negative. Abx have been adjusted to amoxicillin/clav. Currently on day # 6 of abx. Acute on chronic hypoxic respiratory failure Continue to provide supplemental oxygen wean to home dose per protocol. Attributed to HAP and COPD exacerbation. Patient is using oxygen at home--2L continuously. COPD Patient is on albuterol, albuterol/ipratropium, and budesonide at home. Continue budesonide, schedule duonebs, provide prn albuterol. Will provide long tapering dose of steroids, 40mg daily while inpatient, then d/ c with medrol dose pack. Diabetes Patient is on Novolog 10 units with meals, lantus 25 units HS, and canagliflozin at home, continuing these here. Will monitor accu cheks ([phone]), continue SSI, continue basal lantus and meal time insulin. Hypothyroidism TSH was normal on last admission. Continue home levothyroxine. HTN Continue home amlodipine and lisinopril. Tobaccoism Will offer nicoderm. Chronic back pain Patient uses acetaminophen, ketoprofen, and tramdol at home, will continue. FEN Medium diabetic diet. No fluids at this time. Electrolytes normal at this time. Code status Full code. DVT proph Lovenox and SCD's. Dispo Inpatient for above issues. Family is still trying to get the patient agreeable to snf are somewhere. Will continue to work toward that goal on Saturday. DAVID WHITNEY MD Apr 07, 2016 11:49
--- NOTE | 2016-04-07 14:40 | NUR ---
Pt resting in chair - calls for assist. Pt had Tramadol 100mg PO for c/o headache at 1158.
--- NOTE | 2016-04-07 17:14 | NUR ---
Unsweetened Applesauce given at patient request for c/o constipation.
[2016-04-07] MEDS: MAGNESIUM HYDROXIDE 80MG/ML (MILK OF MAGNESIA) 30 ML UDC PO PRN (17:43)
[2016-04-07] MEDS: DOCUSATE SODIUM 100 MG (COLACE) CAP PO PRN (17:43)
[2016-04-07] MEDS ORDERED: ALBUTEROL/IPRATROPIUM 3MG-0.5MG/3ML (DUONEB) NEB VIAL INH SCH (17:55)
[2016-04-07] MEDS: INSULIN DETEMIR 1 UNIT/0.01 ML (LEVEMIR) DOSE SC SCH (21:08)
[2016-04-07] MEDS: ALBUTEROL 0.083% NEB SOLUTION 2.5 MG/3 ML VIAL INH PRN (21:55)
[2016-04-08 04:00] VITALS: BP 109/70
--- NOTE | 2016-04-08 05:16 | NUR ---
2030-Pt is sitting up in recliner watching tv. Denies pain or needs at this time. Will continue to monitor. 2215-Pt is assisted to restroom and then to bed, denies needs at this time. Will continue to monitor. 0300-Pt is up to restroom, and into recliner per her request. Pt is in a good mood this morning, is laughing and joking with staff. 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 This Rn goes in to speak to pt. Pt states, "I'm leaving today, I'm not going to get put anywhere. The deal was I quit smoking, start taking my meds, and walking and I will go home. I'm not staying here for this. I'm not staying here to be judged. This RN explains that the doctor is who decides when she will get to go home. Pt starts crying and calls her dad, tells him that he needs to be up here by 0800, because the doctor will be here and they are sending her away and he needs to make sure he is here to stop it. This RN and Dena KING have both tried explaining to pt that she probably will not be going home today, and that there are no orders to send her anyplace.
[2016-04-08] MEDS: LEVOTHYROXINE 100 MCG (LEVOTHROID) TABLET PO SCH (06:03)
--- NOTE | 2016-04-08 07:45 | NUR ---
Pt up in chair at bedside. Upset and verbally antagonistic. is going home today. "I'm calling my dad and I'm going home." was tricked into coming here. No complaint of pain. No coughing noted at this time.
[2016-04-08 08:27] VITALS: BP 126/93
--- NOTE | 2016-04-08 08:36 | Progress Note-A/P (E) ---
Progress Note Subjective: Patient appears well today. She is dressed in street clothes. She would very much like to go home and repeatedly states she does not want to "go anywhere." Discussed that her sugars are elevated and we will be working on getting her blood sugars controlled. Patient was agreeable to this. Did update son briefly this morning. Objective: Current Medications Acetaminophen 650 mg Q6H PRN PO Ondansetron 4 mg Q6H PRN IV Amlodipine 2.5 mg DAILY PO Budesonide 0.5 mg DAILY INH Levothyroxine 100 mcg DAILY@0600 PO Lisinopril 10 mg DAILY PO Polyethylene Glycol 17 gm DAILY PO Tramadol 50-100mg q 6 hours prn Q6H PRN PO Prednisone 40 mg DAILY@0800 PO Enoxaparin 40 mg Q24HR SC Nicotine 21 mg DAILY TD Lorazepam 1 mg Q2H PRN IV Albuterol Sulfate 0.083% Neb Solutio) 2.5 mg Q4H PRN INH Calcium Carbonate 300 mg Q8H PRN PO Al Hydrox/Mg Hydrox/Simethicone 30 ml Q6H PRN PO Ondansetron 4 mg Q6H PRN IV Promethazine Q6H PRN IV Magnesium Hydroxide 30 ml DAILY PRN PO Polyethylene Glycol 17 gm DAILY PRN PO Docusate 100 mg BID PRN PO Dextrose 15 gm Q15M PRN PO Dextrose PRN IV Glucagon 1 mg PRN PRN IM Insulin Human Lispro QIDACHS SC Ziprasidone 10 mg Q6H PRN IM Amoxicillin/ Clavulanate 875 mg Q12HR PO Insulin Detemir 30 unit HS SC Insulin Human Lispro 10 unit TIDWM SC Albuterol/ Ipratropium 3 ml BID INH Vital Signs Date Time Temp Pulse Resp B/P Pulse Ox O2 Delivery O2 Flow Rate FiO2 04/08/16 08:27 98.1 79 20 126/93 94 Nasal cannula 04/06/16 05:43 2.00 I & O Past 24 hrs 04/08/16 07:00 Intake Total 2571 ml Output Total 2350 ml Balance 221 ml Intake Oral 2571 ml Output Urine Total 2350 ml Physical Exam General--Awake and alert. No distress. HEENT--Normocephalic. MMM in oral cavity. Lungs--Diminished through out. Expiratory wheeze noted. Nonlabored respirations. Heart--RRR. No murmurs. Abdomen--Normal bowel sounds. Soft. Nondistended. Nontender. Extremities--No edema in lower extremities. Past 24 hour Lab Results Microbiology 04/02/16 Blood Culture - Final, Complete No Growth in 5 days Imaging Results 04.02.16 CXR IMPRESSION: Stable chest without acute abnormality or adverse change. Assessment/Plan Agitation/Delirium Much improved. Continue lorazepam and ziprasidone (despite reported allergy no reaction could be confirmed) If her agitation and delirium cannot be controlled here, will advocate for transfer to tertiary [facility] where inpatient psychiatry consultation can be provided, however she is much improved. Schizoaffective Disorder/bipolar disorder Changed fluphenazine to ziprasidone. Benztropine, bupropion, buspirone no longer on her home medication profile and these were reportedly stopped after her hospitalization from [place] 12/2015. Aldan dose was 450 mg daily after that hospitalization but reduced here 03/2016 to 150 mg BID (300 mg total daily ) due to elevated lithium level. Dr. Carlos discussed with counselor who met with son, father, and patient in hospital 04/05. In her long history with patient, mood regulation has been a constant problem. For now, continue ziprasidone which is effective and which she is tolerating. Transitioned from IM to PO dosing 04/05. Sepsis Met criteria with tachycardia and leukocytosis. Tachycardia has resolved. Attributed to HAP. Treating below. HAP Evidenced by leukocytosis and hypoxia. BC negative. Abx have been adjusted to amoxicillin/clav. Currently on day # 7 of abx. Acute on chronic hypoxic respiratory failure Continue to provide supplemental oxygen wean to home dose per protocol. Attributed to HAP and COPD exacerbation. Patient does use oxygen at home--2L continuously. COPD Patient is on albuterol, albuterol/ipratropium, and budesonide at home. Continue budesonide, schedule duonebs, provide prn albuterol. Will provide long tapering dose of steroids, 40mg daily while inpatient, then d/ c with medrol dose pack. Diabetes Patient is on Novolog 10 units with meals, lantus 25 units HS, and canagliflozin at home, continuing these here. Will monitor accu cheks ([phone]), titrating SSI up, continue basal lantus and meal time insulin. Sugars out of control likely due to geodon and patient's increased wakefulness allowing her to eat more. Hypothyroidism TSH was normal on last admission. Continue home levothyroxine. HTN Continue home amlodipine and lisinopril. Tobaccoism Will offer nicoderm. Chronic back pain Patient uses acetaminophen and tramdol at home, will continue. FEN Medium diabetic diet. No fluids at this time. Electrolytes normal at this time. Code status Full code. DVT proph Lovenox and SCD's. Dispo Inpatient for above issues. Continue current cares. Adjusting SSI up given elevated blood glucose. DAVID WHITNEY MD Apr 08, 2016 08:36
[2016-04-08] MEDS: INSULIN LISPRO 1 UNIT/0.01 ML (HUMALOG) DOSE SC SCH ×6 (08:59→20:58)
[2016-04-08] MEDS: amLODIPine 2.5MG (NORVASC) TAB PO SCH (09:02)
[2016-04-08] MEDS: lisINopril 10 MG (PRINIVIL) TABLET PO SCH (09:03)
[2016-04-08] MEDS: LITHIUM CARBONATE 150 MG CAP PO SCH ×2 (09:05→17:46)
[2016-04-08] MEDS: POLYETHYLENE GLYCOL 17 GM (MIRALAX) PACKET PO SCH (09:07)
[2016-04-08] MEDS: AMOXICILLIN/CLAVULANATE 875MG-125MG (AUGMENTIN) TABLET PO SCH ×2 (09:08→21:00)
[2016-04-08] MEDS: NICOTINE 21 MG (NICODERM) PATCH TD SCH (09:08)
[2016-04-08] MEDS: ENOXAPARIN 40 MG/0.4 ML (LOVENOX) SYR SC SCH (09:08)
[2016-04-08] MEDS: predniSONE 20 MG (DELTASONE) TABLET PO SCH (09:08)
[2016-04-08] MEDS: ZIPRASIDONE 20 MG (GEODON) CAP PO SCH ×2 (09:10→17:46)
--- NOTE | 2016-04-08 09:10 | NUR ---
Takes meds without arguing. Less restless. Still talks of going home.
[2016-04-08] MEDS: ALBUTEROL 0.083% NEB SOLUTION 2.5 MG/3 ML VIAL INH PRN ×2 (09:19→20:37)
[2016-04-08] MEDS: NICOTINE PATCH REMOVAL TOP SCH (09:19)
[2016-04-08] MEDS: BUDESONIDE NEBS 0.5 MG/2ML (PULMICORT) AMP INH SCH (09:19)
[2016-04-08 11:51] VITALS: BP 126/71
--- NOTE | 2016-04-08 14:00 | NUR ---
Up to bathroom with standby assist. Cooperative and cheerful. No talk of going home. No complaints of pain.
[2016-04-08] MEDS: MAGNESIUM HYDROXIDE 80MG/ML (MILK OF MAGNESIA) 30 ML UDC PO PRN (16:09)
[2016-04-08] MEDS: DOCUSATE SODIUM 100 MG (COLACE) CAP PO PRN (16:09)
[2016-04-08 16:17] VITALS: BP 118/82
--- NOTE | 2016-04-08 18:20 | NUR ---
Beginning to get more agitated. Talking of wanting to go home. Visits with nursing personnel, encouraged needs to stay till Dr. Mata decides is ready to go. Up in chair much of day. Resp. even. Has voiced no complaints of pain. Resp. even and unlabored.
--- NOTE | 2016-04-08 19:00 | NUR ---
Report received, care assumed.
[2016-04-08] MEDS: ZIPRASIDONE 20 MG INJ (GEODON) VIAL IM PRN (20:24)
--- NOTE | 2016-04-08 20:25 | NUR ---
Pt was given Geodon 10 mg injection due to severe agitation. Pt has been inconsolable since beginning of shift and agitated, wanting to leave hospital. Pt completely illogical, reports staff wants to have her committed, no one likes her, not safe, wants to go home, not sick, worried about her Dad. No reasoning with patient. Two RNs attempted to calm patient. Alissa RN - Psychotherapist Counselor came and sat with pt. Pt calmed after a while with her and allowed only her to give the Geodon injection. Pt agreed to stay the night but wants to leave in the morning. Pt more cooperative at this time. Call light in reach. Pt easily observed from nurse's station.
[2016-04-08 20:31] VITALS: BP 110/68
--- NOTE | 2016-04-08 21:00 | NUR ---
Administered Ultram 100 mg for c/o migraine headache. Pt resting in bed fully clothed. Pt also took evening medications without difficulty. Meds were crushed in pudding per request. Pt continues to be cooperative with staff. Denies other needs now. Call light in reach.
[2016-04-08] MEDS: INSULIN DETEMIR 1 UNIT/0.01 ML (LEVEMIR) DOSE SC SCH (21:01)
--- NOTE | 2016-04-08 22:45 | NUR ---
Pt resting quietly in room with lights turned down. No needs at this time.
[2016-04-09 00:23] VITALS: BP 117/53
[2016-04-09 05:00] VITALS: BP 143/83
[2016-04-09] MEDS: LEVOTHYROXINE 100 MCG (LEVOTHROID) TABLET PO SCH (05:13)
--- NOTE | 2016-04-09 05:15 | NUR ---
Pt up to BR with assist. Cooperative with staff. Took AM med without difficulty. Wants to stay up in chair now. Denies other needs. Call light in reach, pressure alarm on in chair. H2O and personal items within reach.
[2016-04-09] MEDS: BUDESONIDE NEBS 0.5 MG/2ML (PULMICORT) AMP INH SCH (07:50)
[2016-04-09] MEDS: ALBUTEROL 0.083% NEB SOLUTION 2.5 MG/3 ML VIAL INH PRN (07:51)
[2016-04-09 08:01] VITALS: BP 125/70
[2016-04-09] MEDS: NICOTINE PATCH REMOVAL TOP SCH (08:59)
[2016-04-09] MEDS: lisINopril 10 MG (PRINIVIL) TABLET PO SCH (09:16)
[2016-04-09] MEDS: MAGNESIUM HYDROXIDE 80MG/ML (MILK OF MAGNESIA) 30 ML UDC PO PRN (09:16)
[2016-04-09] MEDS: DOCUSATE SODIUM 100 MG (COLACE) CAP PO PRN (09:16)
[2016-04-09] MEDS: ENOXAPARIN 40 MG/0.4 ML (LOVENOX) SYR SC SCH (09:16)
[2016-04-09] MEDS: INSULIN LISPRO 1 UNIT/0.01 ML (HUMALOG) DOSE SC SCH ×4 (14:11→21:00)
[2016-04-09] MEDS: LITHIUM CARBONATE 150 MG CAP PO SCH ×2 (14:14→17:57)
[2016-04-09] MEDS: ZIPRASIDONE 20 MG (GEODON) CAP PO SCH ×2 (14:15→17:57)
[2016-04-09 15:24] VITALS: BP 130/78
--- NOTE | 2016-04-09 20:44 | Progress Note (E) ---
Progress Note SUBJECTIVE Continues to improve in terms of mentation and respiratory status. Glucose remains high with need to further titrate insulin. Attributed to ziprasidone. She is more lucid with improved ability to reason and interact. Again asks to go home, insists she will not go to inpatient mental health hospital and she will insists she needs to go home to help take care of her father and son. Demonstrates poor insight in this regard because it is more that they have to help take care of her when she is at home. Met with father and son in afternoon : in terms of her best baseline performance, father rates her at about 5/10 currently (with 10 being her best.) Acknowledges that she is not fully capable of taking care of herself but feels that with home health continuing to participate, discharge home 04/10 is feasible. Patient is adamant that she won' t go to intermediate. Discussed possibility of [facility] but that this program has a waiting list. OBJECTIVE Vital Signs Date Time Temp Pulse Resp B/P Pulse Ox O2 Delivery O2 Flow Rate FiO2 04/09/16 15:24 98.7 111 20 130/78 91 Room air 04/06/16 05:43 2.00 I & O 04/08/16 04/09/16 Cumulative From/Thru 19:00 07:00 04/02/16 05:41 - 04/09/16 06:09 Intake Total 1450 ml 760 ml 74552 ml Output Total 850 ml 1600 ml 99547 ml Balance 600 ml -840 ml -1179 ml GEN: Sitting in chair. More alert, interactive, thought process more organized. HEENT: EOMI, clear sclerae. Edentulous. Exophthalmos. CV: Regular without murmur. PULM: Diminished breath sounds, better air movement compared to admit. ABD: Soft, not apparently tender. Active bowel sounds. INTEG: Age related changes. Pallor. NEURO: Able to ambulate short distance but with shuffling gait and is unsteady still. PSYCH: Mood: "Sad at times but I want to go home." Affect: Tearful at times. Eye Contact: Good Appearance: Dressed in home clothes. Lipstick applied but she has a large smear of it on her chin. Behavior: Raises voice at times and is tearful but in general she is calm, cooperative. TC: Denies SI/HI/AH/VH/paranoia TP: Linear, coherent currently Insight: Limited Judgement: Poor Lab-Past 14 Days, 35 Results 04/02/16 06:25: Alanine Aminotransferase (ALT/SGPT) 44, Albumin 3.6#, Albumin/Globulin Ratio 1.565, Alkaline Phosphatase 119, Anion Gap 10.3, Aspartate Amino Transf (AST/ SGOT) 21, BUN/Creatinine Ratio 42H, Basophils # (Auto) 0.0, Basophils (%) (Auto ) 0, Blood Urea Nitrogen 35#H, C-Reactive Protein < 0.50, Calcium Level 9.7, Calcium/Ionized Calcium Ratio 4.7H, Calculated Osmolality 291, Carbon Dioxide Level 36H, Chloride Level 97L, Creatine Kinase MB 3.9, Creatinine 0.84, D-Dimer 425, Eosinophils # (Auto) 0.2, Eosinophils (%) (Auto) 1, Estimat Glomerular Filtration Rate 82.6, Estimated GFR (Non- 68.3, Glucose Level 415#*H, Hematocrit 41.60, Hemoglobin 13.7, [place] Level 0.95, Lymphocytes # ( Auto) 1.7, Lymphocytes (%) (Auto) 11L, Mean Corpuscular Hemoglobin 30.1, Mean Corpuscular Hemoglobin Concent 32.9, Mean Corpuscular Volume 91, Mean Platelet Volume 10.2H, Monocytes # (Auto) 0.9, Monocytes (%) (Auto) 6, NH-Tuq-L-Type Natriuretic Peptide 178H, Neutrophils # (Auto) 12.7, Neutrophils (%) (Auto) 81H , Platelet Count 303#, Potassium Level 4.9, Red Blood Count 4.55, Red Cell Distribution Width 13.1, Sodium Level 137, Thyroid Stimulating Hormone (TSH) 1.70, Total Bilirubin 0.5, Total Creatine Kinase 193#H, Total Protein 5.9L, Troponin I < 0.012, White Blood Count 15.68H 04/03/16 05:25: Alanine Aminotransferase (ALT/SGPT) 33, Albumin 3.0L, Albumin/Globulin Ratio 1.304, Alkaline Phosphatase 69, Anion Gap 14.5, Aspartate Amino Transf (AST/SGOT ) 28, BUN/Creatinine Ratio 37H, Basophils # (Auto) , Basophils (%) (Auto) , Blood Urea Nitrogen 28H, Calcium Level 8.9, Calcium/Ionized Calcium Ratio 4.6, Calculated Osmolality 276L, Carbon Dioxide Level 25, Chloride Level 102, Creatinine 0.75, Eosinophils # (Auto) , Eosinophils (%) (Auto) , Estimat Glomerular Filtration Rate 94.1, Estimated GFR (Non- 77.8, Glucose Level 242#H, Hematocrit 40.50, Hemoglobin 12.9, Lymphocytes # (Auto) , Lymphocytes (%) (Auto) , Mean Corpuscular Hemoglobin 29.7, Mean Corpuscular Hemoglobin Concent 31.9, Mean Corpuscular Volume 93, Mean Platelet Volume 10.7H , Monocytes # (Auto) , Monocytes (%) (Auto) , Neutrophils # (Auto) , Neutrophils (%) (Auto) , Platelet Count 335, Potassium Level 5.0, Red Blood Count 4.34, Red Cell Distribution Width 13.1, Sodium Level 136, Total Bilirubin 0.7, Total Protein 5.3L, White Blood Count 23.26H, Absolute Band Neutrophils 0.0 , Atypical Lymphocytes 8, Band Neutrophils % 0, Basophils # (Manual) 0.0, Basophils % (Manual) 0, Blood Morphology Comment Normal, Differential Total Cells Counted 100, Eosinophils # 0.0, Eosinophils % (Manual) 0, Lymphocytes # 0.9, Lymphocytes % (Manual) 4L, Magnesium Level 1.6, Metamyelocytes % 0, Monocytes # 0.7, Monocytes % (Manual) 3, Neutrophils # 19.8, Segmented Neutrophils % 85H 04/04/16 01:00: Urine Bilirubin Negative, Urine Clarity Clear, Urine Collection Type Catheter, Urine Color Yellow, Urine Glucose (UA) TraceH, Urine Ketones Negative, Urine Leukocyte Esterase Negative, Urine Nitrite Negative, Urine Protein Negative, Urine RBC (Auto) Negative, Urine Specific [place] 1.015, Urine Urobilinogen 0.2 , Urine pH 7.0 04/04/16 07:00: Alanine Aminotransferase (ALT/SGPT) 28L, Albumin 3.0L, Albumin/Globulin Ratio 1.304, Alkaline Phosphatase 80, Anion Gap 9.7, Aspartate Amino Transf (AST/SGOT ) 24, BUN/Creatinine Ratio 30H, Basophils # (Auto) 0.0, Basophils (%) (Auto) 0, Blood Urea Nitrogen 23H, C-Reactive Protein 0.70, Calcium Level 10.0, Calcium/ Ionized Calcium Ratio 5.2H, Calculated Osmolality 280, Carbon Dioxide Level 31H , Chloride Level 104, Creatinine 0.76, Eosinophils # (Auto) 0.0, Eosinophils (% ) (Auto) 0, Estimat Glomerular Filtration Rate 92.7, Estimated GFR (Non- 76.6, Glucose Level 212H, Hematocrit 44.70, Hemoglobin 14.4, Lymphocytes # (Auto) 2.5, Lymphocytes (%) (Auto) 13L, Mean Corpuscular Hemoglobin 30.0, Mean Corpuscular Hemoglobin Concent 32.2, Mean Corpuscular Volume 93, Mean Platelet Volume 10.0H, Monocytes # (Auto) 1.1, Monocytes (%) ( Auto) 6, Neutrophils # (Auto) 15.3, Neutrophils (%) (Auto) 80H, Platelet Count 262, Potassium Level 4.8, Red Blood Count 4.80, Red Cell Distribution Width 13.2 , Sodium Level 140, Total Bilirubin 0.6, Total Protein 5.3L, White Blood Count 19.12H, Magnesium Level 1.8 04/06/16 06:01: Albumin 3.3L, Anion Gap 11.0, Basophils # (Auto) 0.0, Basophils (%) (Auto) 0, Blood Urea Nitrogen 28H, Calcium Level 10.6, Carbon Dioxide Level 32H, Chloride Level 102, Creatinine 0.79, Eosinophils # (Auto) 0.1, Eosinophils (%) (Auto) 1, Estimat Glomerular Filtration Rate 88.7, Estimated GFR (Non- 73.3, Glucose Level 268#H, Hematocrit 45.00, Hemoglobin 14.5, Lymphocytes # ( Auto) 3.4, Lymphocytes (%) (Auto) 21, Mean Corpuscular Hemoglobin 29.5, Mean Corpuscular Hemoglobin Concent 32.2, Mean Corpuscular Volume 92, Mean Platelet Volume 10.1H, Monocytes # (Auto) 1.1, Monocytes (%) (Auto) 7, Neutrophils # ( Auto) 11.3, Neutrophils (%) (Auto) 71H, Phosphorus Level 2.9#, Platelet Count 251, Potassium Level 4.7, Red Blood Count 4.92, Red Cell Distribution Width 13.1 , Sodium Level 140, White Blood Count 15.95H MICRO 04/03 Blood culture Negative to date IMAGING 04/02/16 CHEST 1 VIEW, AP/PA ONLY* INDICATION: Dyspnea. 0655 hours. Since examination of 03/27/2016, heart size and pulmonary vascularity remain within normal limits. There is no evidence of pneumothorax or consolidation. Calcified granulomas in the pulmonary sesar. Overall, there has been no adverse change. IMPRESSION: Stable chest without acute abnormality or adverse change. REFERENCE 03/27/16 CHEST 1 VIEW, AP/PA ONLY* CLINICAL INDICATION: Patient with shortness of breath. EXAM: Portable chest x-ray upright view. COMPARISONS: Chest x-ray dated 03/22/2016. FINDINGS: The previously seen 7 mm right upper lobe nodule has decreased in size and density compared to the prior study but residual amorphous opacity in the region still present. There is no interval lung infiltrate. The remainder of lungs are clear. There is no pleural effusion or pneumothorax. Pulmonary vasculature and cardiac silhouette is within normal limits. The remainder of this exam shows no significant interval change compared to the prior study of comparison. IMPRESSION: 1: Interval decreased size and density of the previously seen 7 mm right upper lobe nodule. This may represent an infectious or inflammatory process. Follow up chest x-ray in 4 weeks is suggested to evaluate for interval resolution of this finding. 2: The remainder of the chest exam is stable with no interval acute cardiopulmonary process. ASSESSMENT Shy Hong is a 65 year old female admitted from ED 04/02 where she presented just 1 week after prior [id number] with SIRS/sepsis and COPD exacerbation attributed to pneumonia. She refused recommendation for penitentiary hospitalization. Upon return to home she failed to demonstrate ability to care for herself and could not be supported by her family at home. She returned to ED 03/27 and again on 04/02 when she was admitted again with concerning signs for recurring pneumonia, but now also severe agitation/delirium concerning for acute psychosis. PLAN * Agitation/Delirium: Improving. Lorazepam, ziprasidone (confirmed to best of ability that she does not have a true allergy.) If her agitation and delirium cannot be controlled here, will advocate for transfer to tertiary care center where inpatient psychiatry consultation can be provided. * Schizoaffective Disorder: Fluphenazine on hold and giving ziprasidone temporarily. Benztropine, bupropion, buspirone no longer on her home medication profile and these were reportedly stopped after her hospitalization from [place] 12/2015. [place] dose was 450 mg daily after that hospitalization but reduced here 03/2016 to 150 mg BID (300 mg total daily) due to elevated lithium level. Discussed with counselor who met with son, father, and patient in hospital 04/05. In her long history with patient, mood regulation has been a constant problem. For now, switched to ziprasidone which is effective and which she is tolerating. Transition from IM to PO dosing 04/05. Meet again with [facility] 04/10 to discussed outpatient mental health management. * SIRS/Sepsis: Resolved. Attributed to HCAP. * Acute on Chronic Respiratory Failure: Improved. Attributed to HCAP, COPD exacerbation, poor self-care at home, poor adherence to home oxygen prescription , continued smoking. * HCAP: Blood culture negative to date. No sputum for culture. Empiric levofloxacin, vancomycin. Stopped levofloxacin since it can prolong QTc and can aggravate [employer] symptoms. Switched it to pip-tazo 04/03 and deescalated to amox/ clav 04/04. * Leukocytosis: 15.68 on admit, increased to 23.26 04/03, trended down to 15.95 04/06. Monitor trend. Noted CRP < 0.50 so HCAP diagnosis is a bit uncertain. * COPD with Acute Exacerbation: Duoneb scheduled, albuterol PRN. Budesonide. Prednisone (though noted steroids can sometimes aggravate delirium.) Needs prednisone taper. * Hyperglycemia: Multifactorial: prednisone, ziprasidone. Titrate insulin. * F/E/N: Diabetic diet. Peripheral IV though access has been difficult to maintain. * Prophylaxis: Enoxaparin, SCDs. * Code Status: Full * Dispo: Inpatient. Acute agitation/delirium significantly impeded progress but with ziprasidone, mental status has improved. Proffered skilled care for further recovery on prior admit but she adamantly refused. Has few options for penitentiary placement due to past experiences with other nursing homes and she refuses to go back to intermediate. Also complicating issues: She wants to change primary care providers. Meet again with [facility] 04/10. Possible discharge home 04/10. CHRONIC ISSUES * Constipation: Bowel regimen * HTN: Uncontrolled due to patient non-adherence. Improved with current regimen : amlodipine, lisinopril. * Diabetes Mellitus Type II: Basal/bolus regimen. Correction factor. * Hypothyroidism: Levothyroxine * Bipolar Disorder: [place]. Dose decreased on prior admit due to elevated lithium level. * Neuropathy: Gabapentin no longer in home medication profile. * Tobacco Abuse: Nicotine patch * Hypothyroidism: TSH normal. Levothyroxine. * Chronic Pain: Tramadol on hold. Acetaminophen * Irritable Bowel? Linaclotide (resume at discharge.) PAMELA FORD MD Apr 09, 2016 20:44
--- NOTE | 2016-04-09 20:55 | NUR ---
Pt up walking the halls on RA, No PRN indicated atthis time.
[2016-04-09] MEDS: AMOXICILLIN/CLAVULANATE 875MG-125MG (AUGMENTIN) TABLET PO SCH (21:00)
[2016-04-09] MEDS: INSULIN DETEMIR 1 UNIT/0.01 ML (LEVEMIR) DOSE SC SCH (21:00)
[2016-04-10 00:46] VITALS: BP 129/77
[2016-04-10] MEDS: LEVOTHYROXINE 100 MCG (LEVOTHROID) TABLET PO SCH (05:41)
--- NOTE | 2016-04-10 05:42 | NUR ---
Pt rests in long intervals throughout the night. Denies pain. Very excited about the possibility of going home today. Walks around the unit with staff during the shift. No further needs at this time.
[2016-04-10] MEDS ORDERED: predniSONE 20 MG (DELTASONE) TABLET PO SCH (08:00)
[2016-04-10 08:01] VITALS: BP 159/79
[2016-04-10] MEDS: INSULIN LISPRO 1 UNIT/0.01 ML (HUMALOG) DOSE SC SCH ×6 (08:08→17:28)
[2016-04-10] MEDS: LITHIUM CARBONATE 150 MG CAP PO SCH ×2 (08:09→17:28)
[2016-04-10] MEDS: AMOXICILLIN/CLAVULANATE 875MG-125MG (AUGMENTIN) TABLET PO SCH (08:09)
[2016-04-10] MEDS: amLODIPine 2.5MG (NORVASC) TAB PO SCH ×2 (08:09→08:21)
[2016-04-10] MEDS: ZIPRASIDONE 20 MG (GEODON) CAP PO SCH ×2 (08:09→17:28)
[2016-04-10] MEDS: lisINopril 10 MG (PRINIVIL) TABLET PO SCH (08:09)
[2016-04-10] MEDS: POLYETHYLENE GLYCOL 17 GM (MIRALAX) PACKET PO SCH ×2 (08:10→08:21)
[2016-04-10] MEDS: NICOTINE 21 MG (NICODERM) PATCH TD SCH ×2 (08:10→08:22)
[2016-04-10] MEDS: ENOXAPARIN 40 MG/0.4 ML (LOVENOX) SYR SC SCH (08:11)
[2016-04-10] MEDS: NICOTINE PATCH REMOVAL TOP SCH (08:21)
[2016-04-10] MEDS: BUDESONIDE NEBS 0.5 MG/2ML (PULMICORT) AMP INH SCH (09:23)
--- NOTE | 2016-04-10 10:32 | NUR ---
Shy is cooperative and compliant this AM. Respirations are even and unlabored on room air. She expresses excitement about going home today to see family. She is able to take medications without complaint and visits with thi.
--- NOTE | 2016-04-10 14:12 | NUR ---
[facility] in to visit with the patient and family at this time
[2016-04-10] MEDS ORDERED: AMOX1TAB12 PO (17:11)
[2016-04-10] MEDS ORDERED: PRED5TAB PO (17:11)
[2016-04-10] MEDS ORDERED: INSU100V2 SC (17:11)
[2016-04-10] MEDS ORDERED: BDS2MA INH (17:11)
[2016-04-10] MEDS ORDERED: INSU100V5 SC (17:11)
[2016-04-10] MEDS ORDERED: IPRA3AMP11 INH (17:11)
[2016-04-10] MEDS ORDERED: ZPR20C PO (17:11)
--- NOTE | 2016-04-10 17:26 | Discharge Instructions (E) ---
Discharge Instructions Instructions * You were evaluated and treated again for COPD exacerbation and for concern of pneumonia. Review your discharge medication list very carefully and complete amoxicillin/clavulanate and prednisone as prescribed. Take breathing treatments as prescribed. * For concern of agitation and psychosis fluphenazine was stopped and ziprasidone (Geodon) was started. Further medication recommendations will be made by [facility]. Staff were not able to schedule a follow-up appointment this week but they will contact you once an appointment date opens. BE SURE TO CONTACT [facility] IF YOU ARE HAVING PROBLEMS WITH YOUR MOOD OR YOUR NEW MEDICATIONS. * Review your new insulin doses very carefully and be sure to take insulin as prescribed. * Quitting smoking is one of the best things you can do for your health. Review the provided handout for details. * Home health through [facility] can be resumed. * You have been referred to [facility], a comprehensive service that can provide comprehensive medical care. Their staff will continue to work with you to schedule with their services. Activity Instructions As tolerated. No driving. Doctor's Appointment Follow-up with [facility]. They will contact you for in home assessment and scheduling with your new doctor. Discharge Diet: Carbohydrate controlled PAMELA FORD MD Apr 10, 2016 17:26
[2016-04-10] MEDS ORDERED: NCT21TD TD (17:33)
--- NOTE | 2016-04-10 17:57 | NUR ---
Discharge instructions read. Family at the bedside. Patient is up in chair eating meal at this time.
--- NOTE | 2016-04-11 10:45 | Discharge Summary (E) ---
Discharge Summary (E) Admit Date/Time Apr 02, 2016 at 08:30 Discharge Date/Time Apr 10, 2016 at 18:30 Admitting Provider Antonia Mata MD Primary Care Provider Elton Marsh MD Attending Provider Antonia Mata MD, Michael MD Consulting Provider History and Present Illness See History and Physical for complete details. Shy Hong is a 65 year old female admitted from ED 04/02 where she presented just 1 week after prior discharge 03/26 from [id number] with SIRS/sepsis and COPD exacerbation attributed to pneumonia. She refused recommendation for care home hospitalization. Upon return to home she failed to demonstrate ability to care for herself and could not be supported by her family at home. She returned to ED 03/27 and again on 04/02 when she was admitted again with concerning signs for recurring pneumonia, but now also severe agitation/ delirium concerning for acute psychosis. Psychosis was a tremendous player in this rehospitalization. She was very agitated and delirious and she was not at all able to regulate her mood. Fluphenazine was stopped (which wasn't taking reliably anyway) and IM ziprasidone was given. After 48 hours she had a marked reduction in psychosis and agitation symptoms and ziprasidone was transitioned to PO to good effect. Noted that she had an allergy listed to ziprasidone but in going through prior records, no adverse reaction could be found in documentation. She had no apparent adverse reaction while taking this during this hospitalization other than hyperglycemia. [facility] was consulted. Initially it was felt she would need inpatient psychiatric hospitalization, but as her stay progressed, her mood became much more stable and she was more able to demonstrated orientation to person, place, time, and situation. Her father is her guardian. He was reluctant to consent to inpatient psychiatric patient because he knows that it makes her extremely unhappy. He was also reluctant to consider plans of senior care placement, again because it makes her unhappy. Long conversations were had regarding discharge planning and the need to patient to have more comprehensive service to ensure she takes medications as directed, tries to quit smoking, uses oxygen at home safely, and keeps her psychiatric symptoms in control, all in an effort to reduce her risk of rehospitalization and improve her chronic disease management at home. [facility] was contacted and patient was evaluated in hospital. It was felt she was a very good candidate for their services and patient was very agreeable to transitioning her medical home to this new provider in the community. At discharge, [facility] will continue their intake procedures and will arrange to meet the patient in her home. [facility] was contacted and they will resume services. [facility] was unable to arrange for immediate clinic follow-up but will see her within the next two weeks as soon as possible. At discharge, her COPD therapies were further optimized. She already has oxygen at home. She intends to quit smoking. She will continue to take ziprasidone and will stop fluphenazine. Additional specific details of her hospitalization are as follows: Hospital Course and Treatment * Agitation/Delirium: Improving. Lorazepam, ziprasidone (confirmed to best of ability that she does not have a true allergy.) [facility] will continue mental health services and will get her into clinic again as soon as possible. * Schizoaffective Disorder: Fluphenazine on hold and giving ziprasidone temporarily. Benztropine, bupropion, buspirone no longer on her home medication profile and these were reportedly stopped after her hospitalization from [facility] 12/2015. [place] dose was 450 mg daily after that hospitalization but reduced here 03/2016 to 150 mg BID (300 mg total daily) due to elevated lithium level. Discussed with counselor who met with son, father, and patient in hospital 04/05. In her long history with patient, mood regulation has been a constant problem. For now, switched to ziprasidone which is effective and which she is tolerating. Transition from IM to PO dosing 04/05. Met again with Von Porter 04/10 to discussed outpatient mental health management. Because of improvement in her symptoms, mental health hospitalization was deferred and plan to continue to manage on an outpatient basis. * SIRS/Sepsis: Resolved. Attributed to HCAP. * Acute on Chronic Respiratory Failure: Improved. Attributed to HCAP, COPD exacerbation, poor self-care at home, poor adherence to home oxygen prescription , continued smoking. * HCAP: Blood culture negative to date. No sputum for culture. Empiric levofloxacin, vancomycin. 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 Switched it to pip-tazo 04/03 and deescalated to amox/ clav 04/04. * Leukocytosis: 15.68 on admit, increased to 23.26 04/03, trended down to 15.95 04/06. Monitor trend. Noted CRP < 0.50 so HCAP diagnosis is a bit uncertain. * COPD with Acute Exacerbation: Duoneb scheduled, albuterol PRN. Budesonide. Prednisone (though noted steroids can sometimes aggravate delirium.) Taper dose at discharge. * Hyperglycemia: Multifactorial: prednisone, ziprasidone. Titrated insulin. Home health will help with this after discharge. * F/E/N: Diabetic diet. * Prophylaxis: Enoxaparin, SCDs. * Code Status: Full * Dispo: Inpatient. Acute agitation/delirium significantly impeded progress but with ziprasidone, mental status has improved. Proffered skilled care for further recovery on prior admit but she adamantly refused. 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 At discharge, referred to [facility] for comprehensive medical home management. CHRONIC ISSUES * Constipation: Bowel regimen * HTN: Uncontrolled due to patient non-adherence. Improved with current regimen : amlodipine, lisinopril. * Diabetes Mellitus Type II: Basal/bolus regimen. Correction factor. * Hypothyroidism: Levothyroxine * Bipolar Disorder: [place]. Dose decreased on prior admit due to elevated lithium level. * Neuropathy: Gabapentin no longer in home medication profile. * Tobacco Abuse: Nicotine patch * Hypothyroidism: TSH normal. Levothyroxine. * Chronic Pain: Tramadol on hold. Acetaminophen * Irritable Bowel? Linaclotide (resume at discharge.) Discharge Physicial Exam General Vital Signs Date Time Temp Pulse Resp B/P Pulse Ox O2 Delivery O2 Flow Rate FiO2 04/10/16 08:01 98.0 86 22 159/79 90 Room air 04/06/16 05:43 2.00 GEN: Sitting in chair. More alert, interactive, dressed in home clothes. Thought process more organized. HEENT: EOMI, clear sclerae. Edentulous. Exophthalmos. CV: Regular without murmur. PULM: Diminished breath sounds, better air movement compared to admit. ABD: Soft, not apparently tender. Active bowel sounds. INTEG: Age related changes. Pallor. NEURO: Mild tremor. Shuffling gait. PSYCH: Mood: "I want to go home." Affect: Tearful at times but improved compared to previous. Eye Contact: Good Appearance: Dressed in home clothes. Lipstick applied but she has a large smear of it on her chin. Behavior: Calm, cooperative, interactive. TC: Denies SI/HI/AH/VH/paranoia TP: Linear, coherent currently Insight: Limited Judgement: Poor Laboratory/Radiology Data Laboratory Results-14 Days 04/02/16 06:25: Alanine Aminotransferase (ALT/SGPT) 44, Albumin 3.6#, Albumin/Globulin Ratio 1.565, Alkaline Phosphatase 119, Anion Gap 10.3, Aspartate Amino Transf (AST/ SGOT) 21, BUN/Creatinine Ratio 42H, Basophils # (Auto) 0.0, Basophils (%) (Auto ) 0, Blood Urea Nitrogen 35#H, C-Reactive Protein < 0.50, Calcium Level 9.7, Calcium/Ionized Calcium Ratio 4.7H, Calculated Osmolality 291, Carbon Dioxide Level 36H, Chloride Level 97L, Creatine Kinase MB 3.9, Creatinine 0.84, D-Dimer 425, Eosinophils # (Auto) 0.2, Eosinophils (%) (Auto) 1, Estimat Glomerular Filtration Rate 82.6, Estimated GFR (Non- 68.3, Glucose Level 415#*H, Hematocrit 41.60, Hemoglobin 13.7, [place] Level 0.95, Lymphocytes # ( Auto) 1.7, Lymphocytes (%) (Auto) 11L, Mean Corpuscular Hemoglobin 30.1, Mean Corpuscular Hemoglobin Concent 32.9, Mean Corpuscular Volume 91, Mean Platelet Volume 10.2H, Monocytes # (Auto) 0.9, Monocytes (%) (Auto) 6, WX-Gtx-U-Type Natriuretic Peptide 178H, Neutrophils # (Auto) 12.7, Neutrophils (%) (Auto) 81H , Platelet Count 303#, Potassium Level 4.9, Red Blood Count 4.55, Red Cell Distribution Width 13.1, Sodium Level 137, Thyroid Stimulating Hormone (TSH) 1.70, Total Bilirubin 0.5, Total Creatine Kinase 193#H, Total Protein 5.9L, Troponin I < 0.012, White Blood Count 15.68H 04/03/16 05:25: Alanine Aminotransferase (ALT/SGPT) 33, Albumin 3.0L, Albumin/Globulin Ratio 1.304, Alkaline Phosphatase 69, Anion Gap 14.5, Aspartate Amino Transf (AST/SGOT ) 28, BUN/Creatinine Ratio 37H, Basophils # (Auto) , Basophils (%) (Auto) , Blood Urea Nitrogen 28H, Calcium Level 8.9, Calcium/Ionized Calcium Ratio 4.6, Calculated Osmolality 276L, Carbon Dioxide Level 25, Chloride Level 102, Creatinine 0.75, Eosinophils # (Auto) , Eosinophils (%) (Auto) , Estimat Glomerular Filtration Rate 94.1, Estimated GFR (Non- 77.8, Glucose Level 242#H, Hematocrit 40.50, Hemoglobin 12.9, Lymphocytes # (Auto) , Lymphocytes (%) (Auto) , Mean Corpuscular Hemoglobin 29.7, Mean Corpuscular Hemoglobin Concent 31.9, Mean Corpuscular Volume 93, Mean Platelet Volume 10.7H , Monocytes # (Auto) , Monocytes (%) (Auto) , Neutrophils # (Auto) , Neutrophils (%) (Auto) , Platelet Count 335, Potassium Level 5.0, Red Blood Count 4.34, Red Cell Distribution Width 13.1, Sodium Level 136, Total Bilirubin 0.7, Total Protein 5.3L, White Blood Count 23.26H, Absolute Band Neutrophils 0.0 , Atypical Lymphocytes 8, Band Neutrophils % 0, Basophils # (Manual) 0.0, Basophils % (Manual) 0, Blood Morphology Comment Normal, Differential Total Cells Counted 100, Eosinophils # 0.0, Eosinophils % (Manual) 0, Lymphocytes # 0.9, Lymphocytes % (Manual) 4L, Magnesium Level 1.6, Metamyelocytes % 0, Monocytes # 0.7, Monocytes % (Manual) 3, Neutrophils # 19.8, Segmented Neutrophils % 85H 04/04/16 01:00: Urine Bilirubin Negative, Urine Clarity Clear, Urine Collection Type Catheter, Urine Color Yellow, Urine Glucose (UA) TraceH, Urine Ketones Negative, Urine Leukocyte Esterase Negative, Urine Nitrite Negative, Urine Protein Negative, Urine RBC (Auto) Negative, Urine Specific [place] 1.015, Urine Urobilinogen 0.2 , Urine pH 7.0 04/04/16 07:00: Alanine Aminotransferase (ALT/SGPT) 28L, Albumin 3.0L, Albumin/Globulin Ratio 1.304, Alkaline Phosphatase 80, Anion Gap 9.7, Aspartate Amino Transf (AST/SGOT ) 24, BUN/Creatinine Ratio 30H, Basophils # (Auto) 0.0, Basophils (%) (Auto) 0, Blood Urea Nitrogen 23H, C-Reactive Protein 0.70, Calcium Level 10.0, Calcium/ Ionized Calcium Ratio 5.2H, Calculated Osmolality 280, Carbon Dioxide Level 31H , Chloride Level 104, Creatinine 0.76, Eosinophils # (Auto) 0.0, Eosinophils (% ) (Auto) 0, Estimat Glomerular Filtration Rate 92.7, Estimated GFR (Non- 76.6, Glucose Level 212H, Hematocrit 44.70, Hemoglobin 14.4, Lymphocytes # (Auto) 2.5, Lymphocytes (%) (Auto) 13L, Mean Corpuscular Hemoglobin 30.0, Mean Corpuscular Hemoglobin Concent 32.2, Mean Corpuscular Volume 93, Mean Platelet Volume 10.0H, Monocytes # (Auto) 1.1, Monocytes (%) ( Auto) 6, Neutrophils # (Auto) 15.3, Neutrophils (%) (Auto) 80H, Platelet Count 262, Potassium Level 4.8, Red Blood Count 4.80, Red Cell Distribution Width 13.2 , Sodium Level 140, Total Bilirubin 0.6, Total Protein 5.3L, White Blood Count 19.12H, Magnesium Level 1.8 04/06/16 06:01: Albumin 3.3L, Anion Gap 11.0, Basophils # (Auto) 0.0, Basophils (%) (Auto) 0, Blood Urea Nitrogen 28H, Calcium Level 10.6, Carbon Dioxide Level 32H, Chloride Level 102, Creatinine 0.79, Eosinophils # (Auto) 0.1, Eosinophils (%) (Auto) 1, Estimat Glomerular Filtration Rate 88.7, Estimated GFR (Non- 73.3, Glucose Level 268#H, Hematocrit 45.00, Hemoglobin 14.5, Lymphocytes # ( Auto) 3.4, Lymphocytes (%) (Auto) 21, Mean Corpuscular Hemoglobin 29.5, Mean Corpuscular Hemoglobin Concent 32.2, Mean Corpuscular Volume 92, Mean Platelet Volume 10.1H, Monocytes # (Auto) 1.1, Monocytes (%) (Auto) 7, Neutrophils # ( Auto) 11.3, Neutrophils (%) (Auto) 71H, Phosphorus Level 2.9#, Platelet Count 251, Potassium Level 4.7, Red Blood Count 4.92, Red Cell Distribution Width 13.1 , Sodium Level 140, White Blood Count 15.95H MICRO 04/03 Blood culture Negative to date IMAGING 04/02/16 CHEST 1 VIEW, AP/PA ONLY* INDICATION: Dyspnea. 0655 hours. Since examination of 03/27/2016, heart size and pulmonary vascularity remain within normal limits. There is no evidence of pneumothorax or consolidation. Calcified granulomas in the pulmonary sesar. Overall, there has been no adverse change. IMPRESSION: Stable chest without acute abnormality or adverse change. REFERENCE 03/27/16 CHEST 1 VIEW, AP/PA ONLY* CLINICAL INDICATION: Patient with shortness of breath. EXAM: Portable chest x-ray upright view. COMPARISONS: Chest x-ray dated 03/22/2016. FINDINGS: The previously seen 7 mm right upper lobe nodule has decreased in size and density compared to the prior study but residual amorphous opacity in the region still present. There is no interval lung infiltrate. The remainder of lungs are clear. There is no pleural effusion or pneumothorax. Pulmonary vasculature and cardiac silhouette is within normal limits. The remainder of this exam shows no significant interval change compared to the prior study of comparison. IMPRESSION: 1: Interval decreased size and density of the previously seen 7 mm right upper lobe nodule. This may represent an infectious or inflammatory process. Follow up chest x-ray in 4 weeks is suggested to evaluate for interval resolution of this finding. 2: The remainder of the chest exam is stable with no interval acute cardiopulmonary process. Discharge Disposition Discharged home with home health. Instructions * You were evaluated and treated again for COPD exacerbation and for concern of pneumonia. Review your discharge medication list very carefully and complete amoxicillin/clavulanate and prednisone as prescribed. Take breathing treatments as prescribed. * For concern of agitation and psychosis fluphenazine was stopped and ziprasidone (Geodon) was started. Further medication recommendations will be made by [facility]. Staff were not able to schedule a follow-up appointment this week but they will contact you once an appointment date opens. BE SURE TO CONTACT [facility] IF YOU ARE HAVING PROBLEMS WITH YOUR MOOD OR YOUR NEW MEDICATIONS. * Review your new insulin doses very carefully and be sure to take insulin as prescribed. * Quitting smoking is one of the best things you can do for your health. Review the provided handout for details. * Home health through [facility] can be resumed. * You have been referred to [facility], a comprehensive service that can provide comprehensive medical care. Their staff will continue to work with you to schedule with their services. Activity Instructions As tolerated. No driving. Appointments Follow-up with [facility]. They will contact you for in home assessment and scheduling with your new doctor. Discharge Diet: Carbohydrate controlled Discharge Medications New Medications: Prednisone (Prednisone) 5 Mg Tablet 0 PO DAILY Take 20 mg 04/11, then 15 mg 04/12 and 04/13, then 10 mg 04/14 and , then 5 mg 04/16 and 04/17, then STOP. Inflammation #16 Ref 0 TAB Amoxicillin/Potassium Clav (Amox Tr-K Clv 875-125 mg Tab) 1 Each Tablet 875 MG PO Q12HR #3 Ref 0 TAB Insulin Detemir (Levemir) 100 Unit/1 Ml Vial 30 UNIT SC HS #1 Ref 0 VIAL Insulin Lispro (Humalog) 100 Unit/1 Ml Vial 11 UNIT SC TIDWM #1 Ref 1 VIAL Nicotine (Nicoderm) 21 Mg Patch 21 MG TD DAILY #30 Ref 0 PATCH Ziprasidone (Geodon) 20 Mg Cap 20 MG PO BID #30 Ref 0 CAP Changed Medications: Albuterol/Ipratropium (Duoneb 3mg-0.5mg/3ml) 3 Ml Nebu 3 ML INH TID #25 Ref 1 VIAL (Changed from: Q4H; Removed Reason; Refills: 0) Continued Medications: Acetaminophen (Tylenol) 325 Mg Tablet 650 MG PO Q6H PRN PAIN Ref 0 TAB Albuterol Sulfate (ED- Ventolin HFA) 1 Inhaler Hfa.aer.ad 2 PUFF INH Q4H PRN DYSPNEA #1 Ref 0 INH Amlodipine Besylate (Amlodipine Besylate) 2.5 Mg Tablet 2.5 MG PO DAILY Budesonide (Pulmicort) 0.25 Mg/Ml Nebu 0.5 MG INH DAILY #60 Ref 0 VIAL (This prescription has been renewed) Calcium Carbonate (Tums) 300 Mg Tab.chew 600 MG PO Q2H PRN DYSPEPSIA #0 Ref 0 TAB.CHEW Docusate Sodium (Stool Softener) 100 Mg Capsule 100 MG PO BID CAP Famotidine (Pepcid) 40 Mg Tablet 40 MG PO HS TAB Ketoprofen (Ketoprofen) 50 Mg Capsule 50 MG PO TID PRN PAIN Levothyroxine Sodium (Levothyroxine Sodium) 100 Mcg Tablet 100 MCG PO DAILY@0600 TAB Linaclotide (Linzess) 290 Mcg Capsule 290 MCG PO DAILY CAP Lisinopril (Lisinopril) 10 Mg Tablet 10 MG PO DAILY [place] Carbonate ([place]) 150 Mg Cap 150 MG PO BID WITH MEALS #30 Ref 0 CAP Magnesium Oxide (Mag-Oxide) 400 Mg Tablet 400 MG PO BID TAB Melatonin/Pyridoxine HCl (B6) (Melatonin 3 mg Tablet) 1 Each Tablet 2 EACH PO HS TAB Polyethylene Glycol 3350 (Miralax) 17 Gm Powd.pack 17 GM PO DAILY Tramadol HCl (Tramadol HCl) 50 Mg Tablet 1-2 TAB PO Q6H PRN PAIN #20 Ref 0 TAB Discontinued Medications: Fluphenazine HCl (Fluphenazine HCl) 1 Mg Tablet 2 MG PO BID Fluphenazine HCl (Fluphenazine HCl) 1 Mg Tablet 1 MG PO DAILY PRN psychosis TAB Insulin Aspart (Novolog) 100 Unit/1 Ml Vial 5 UNIT SQ TIDWM VIAL Insulin Detemir (Levemir) 100 Unit/1 Ml Vial 15 UNIT SC HS VIAL Oxybutynin Chloride (Oxybutynin Chloride) 5 Mg Tablet 5 MG PO DAILY TAB Follow up Follow up Referrals: Home Health [facility] with [facility] New Orders: CXR (CHEST PA/LAT (2 VIEW)* - Within 2 weeks Discharge Diagnosis See list above. Problems: Copies to: End of Report . PAMELA FORD MD Apr 11, 2016 10:45
[2016-04-27] MEDS ORDERED: HYOS0.1218 SL (09:23)
[2016-04-27] MEDS ORDERED: OLAN20TA16 PO (09:23)
[2016-06-16] MEDS ORDERED: INSU100V5 SC (17:50)
[2016-06-16] MEDS ORDERED: DIVA500T7 PO (17:50)
[2016-06-16] MEDS ORDERED: BECL8.7A5 IH (17:50)
[2016-06-16] MEDS ORDERED: OXB5T PO (17:50)
[2016-06-16] MEDS ORDERED: ZPR40C PO (17:50)
[2016-06-17] MEDS ORDERED: DIVA500T15 PO (08:35)
[2016-06-17] MEDS ORDERED: OXYB10TA PO (08:35)
[2016-06-17] MEDS ORDERED: ATOR10TA56 PO (08:35)
[2016-06-23] MEDS ORDERED: AC325T PO (15:15)
[2016-06-23] MEDS ORDERED: IPRA3AMP11 INH (15:15)
[2016-06-23] MEDS ORDERED: POLY17PO2 PO (15:15)
[2016-06-23] MEDS ORDERED: NCT21TD TD (15:15)
[2016-06-23] MEDS ORDERED: ALBU2.5V12 INH (15:15)
[2016-06-23] MEDS ORDERED: MAGN400O7 PO (15:15)
[2016-06-23] MEDS ORDERED: IBP200T PO (15:15)
[2016-06-23] MEDS ORDERED: DPH25C PO (15:15)
[2016-06-23] MEDS ORDERED: DIVA500T15 PO (16:24)
[2016-06-23] MEDS ORDERED: ATOR10TA56 PO (16:24)
== END 2016-04-10 18:30 | disposition home health service (06) | DRG 871 ==
LOC: ED 05:37 → MED/SURG 08:30
PROVIDERS: ADMIT Family Medicine; ATTEND Family Medicine
DX: A41.9 Sepsis, unspecified organism (principal); J18.9 Pneumonia, unspecified organism; J96.21 Acute and chronic respiratory failure with hypoxia; J44.0 Chronic obstructive pulmonary disease with (acute) lower respiratory infection; J44.1 Chronic obstructive pulmonary disease with (acute) exacerbation; F25.9 Schizoaffective disorder, unspecified; E03.9 Hypothyroidism, unspecified; I10 Essential (primary) hypertension; E11.65 Type 2 diabetes mellitus with hyperglycemia; E11.40 Type 2 diabetes mellitus with diabetic neuropathy, unspecified; F17.210 Nicotine dependence, cigarettes, uncomplicated
CPT/HCPCS: 36415; 71010; 80053; 80069; 80178; 81003; 82550; 82553; 83735; 83880; 84443; 84484; 85025; 85379; 86140; 87040; 93005; 93010; 94640; 94760; 96365; 96375; 99284

== ENCOUNTER 2016-04-16 22:41 | Observation (INO) | payer MEDICARE ==
[~2016-04-16] VITALS: Ht 162.6 cm; Wt 66.6 kg
[~2016-04-16 22:41] MED LIST changes: +AMOX1TAB12 PO; +INSU100V2 SC; +PRED5TAB PO; +ZPR20C PO
--- OUTSIDE RECORDS SUMMARY | 2016-04-16 22:45 | XMS REPORT ---
Author Author GENERATED, SYSTEM Organization Unknown Address Unknown Phone Unavailable Care Team Providers Care Journal Clerk Name Role Phone UNASSIGNED DOCTOR MD MARLIN DOCTOR PP [phone] Reason For Visit Chief Complaint N94.89 Social [...]
--- OUTSIDE RECORDS SUMMARY | 2016-04-16 22:46 | XMS REPORT ---
Author Author GENERATED, SYSTEM Organization Unknown Address Unknown Phone Unavailable Care Team Providers Care Level Designer Name Role Phone UNASSIGNED DOCTOR MD MARLIN DOCTOR PP [phone] Reason For Visit Chief Complaint N94.89 Social [...]
[2016-04-16] MEDS ORDERED: ONDANSETRON 4 MG (ZOFRAN) ORAL DISSOLVE TAB PO ONE (23:20)
[2016-04-16] MEDS ORDERED: ALBUTEROL/IPRATROPIUM 3MG-0.5MG/3ML (DUONEB) NEB VIAL INH ONE (23:20)
[2016-04-16 23:56] LABS: BASOPHILS % (AUTO) 0 % (0-2); EOSINOPHILS # (AUTO) 0.3 10^3uL; EOSINOPHILS % (AUTO) 1 % (0-4); LYMPHOCYTES # (AUTO) 3.1 X10^3; MEAN CORPUSCULAR HEMOGLOBIN 29.7 PG (26.0-34.0); MEAN CORPUSCULAR HGB CONC 33.2 g/dL (31.0-37.0); MEAN CORPUSCULAR VOLUME 90 FL (80-100); MEAN PLATELET VOLUME 11.3 FL (6.0-9.5); MONOCYTES # (AUTO) 1.3 X10^3; MONOCYTES % (AUTO) 8 % (3-11); NEUTROPHILS # (AUTO) 12.4 X10^3; NEUTROPHILS % (AUTO) 72 % (51-67); PLATELET COUNT 207 10^3uL (150-450)
[2016-04-17 00:01] LABS: ALBUMIN 3.2 g/dL (3.4-5.0); ANION GAP 12.5 MEQ/L (3-15); TOTAL PROTEIN 5.5 g/dL (6.4-8.5)
[2016-04-17] MEDS ORDERED: SODIUM CHLORIDE FLUSH 10 ML SYR IV PRN (01:00)
[2016-04-17] MEDS ORDERED: NS IV 500 ML 500 ML IV SCH (01:00)
[2016-04-17] MEDS ORDERED: FUROSEMIDE 20 MG/2 ML (LASIX) VIAL IV ONE (01:00)
[2016-04-17] MEDS ORDERED: ALBUTEROL 0.083% NEB SOLUTION 2.5 MG/3 ML VIAL INH STA (01:00)
[2016-04-17] MEDS ORDERED: SODIUM CHLORIDE FLUSH 3 ML SYR IV PRN (01:00)
[2016-04-17] MEDS ORDERED: INSULIN REGULAR 1 UNIT/0.01 ML DOSE IV ONE (01:00)
[2016-04-17] MEDS ORDERED: ACETAMINOPHEN 500 MG TAB (TYLENOL) PO STA (02:23)
[2016-04-17] MEDS ORDERED: ACETAMINOPHEN 500 MG TAB (TYLENOL) ONE (02:26)
[2016-04-17] MEDS ORDERED: CALCIUM CARBONATE CHEWABLE 300 MG (TUMS) TABLET PO PRN (03:15)
[2016-04-17] MEDS ORDERED: SODIUM POLYSTERENE SULF SUSP 15 GM/60 ML (KAYEXALATE) BTL PO ONE (03:15)
[2016-04-17] MEDS ORDERED: ACETAMINOPHEN 325 MG TAB (TYLENOL) PO PRN (03:15)
[2016-04-17] MEDS ORDERED: KETOPROFEN 50 MG PO PRN (03:15)
[2016-04-17] MEDS ORDERED: DEXTROSE 50% 25 GM/50 ML SYRINGE IV PRN (03:25)
[2016-04-17] MEDS ORDERED: METOCLOPRAMIDE 10 MG/2 ML (REGLAN) VIAL IV PRN (03:25)
[2016-04-17] MEDS ORDERED: HALOPERIDOL 5 MG (HALDOL) TABLET PO PRN (03:25)
[2016-04-17] MEDS ORDERED: GLUCAGON EMERGENCY 1 MG/KIT IM PRN (03:25)
[2016-04-17] MEDS ORDERED: DEXTROSE ORAL GEL (GLUTOSE 40%) 15 GM TUBE PO PRN (03:25)
[2016-04-17] MEDS ORDERED: ONDANSETRON 4 MG (ZOFRAN) ORAL DISSOLVE TAB PO PRN (03:25)
--- NOTE | 2016-04-17 03:57 | History and Physical (E) ---
History & Physical CC Short of breath, Coughing, Vomiting, diarrhea, blood sugars up and down. HPI Ms. Hong is a 65 year old female presenting to the ED with shortness of breath , coughing, Vomiting, diarrhea and volatile blood sugars. Her story for coming in is not really coherent. SHe was recently released from the hospital with a COPD exacerbation and just finished her steroids from the hospitalization today. While in the ED she was found to be hyperkalemic. PMH COPD , Diabetes, Hypothyroidism, HTN, Seasonal allergies, Psychiatric diagnoses [bipolar disorder, schizoaffective disorder], Neuropathy, Cervical cancer, Arthritis, Chronic back pain, GERD PSH Appendectomy, Cholecystectomy, Hysterectomy, Hernia repair, Partial bowel resection ALLERGIES and Meds: See list at end of report. FH Parents--Father has HTN. Mother had cardiac disease. Siblings--Brother with HTN and skin cancer. Another brother who as a child from respiratory illness. Children--Son with DLD. SH Reportedly a heavy smoker for years. CODE STATUS Full code. OBJECTIVE Vital Signs Date Time Temp Pulse Resp B/P Pulse Ox O2 Delivery O2 Flow Rate FiO2 04/17/16 03:08 95 18 96 Room Air 04/16/16 22:58 98.8 180/80 General: Somewhat anxious but well controlled for patient. HEENT: Atraumatic and normal cephalic. Conjuctiva clear. No retinal hemorrhages or papilledema. Moderate nasal mucosal edema. Posterior oral pharynx clear. Neck: supple with no lymphadenopathy. CV: RRR s M Chest: Diminished breath sounds. No Wheezes, rails or rhonchi. Abd: + BS, soft, NT, Several large bruises on abdomen. Ext: trace edema. Laboratory Tests Test Range/Units 04/16/16 23:42 04/17/16 00:35 Alanine Aminotransferase (ALT/SGPT) 30-65 U/L 42 Albumin 3.4-5.0 g/dL 3.2 Albumin/Globulin Ratio 1.1-1.8 1.391 Alkaline Phosphatase 38-126 U/L 123 Anion Gap 3-15 MEQ/L 12.5 Aspartate Amino Transf (AST/SGOT) 15-37 U/L 22 BUN/Creatinine Ratio 10-20 32 Basophils # (Auto) 10^3uL 0.0 Basophils (%) (Auto) 0-2 % 0 Blood Urea Nitrogen 7-18 mg/dL 31 Calcium Level 8.8-10.8 mg/dL 9.9 Calcium/Ionized Calcium Ratio 3.8-4.6 mg/dL 5.0 Calculated Osmolality 280-300 mosm/L 277 Carbon Dioxide Level 22-29 mmol/L 27 Chloride Level 98-108 mmol/L 98 Creatinine 0.6-1.2 mg/dL 0.96 Eosinophils # (Auto) 10^3uL 0.3 Eosinophils (%) (Auto) 0-4 % 1 Estimat Glomerular Filtration Rate 70.8 Estimated GFR (Non- 58.5 Glucose Level 70-110 mg/dL 396 Hematocrit 35.00-45.00 % 37.70 Hemoglobin 12.0-15.5 g/dL 12.5 Braden Level Pending Lymphocytes # (Auto) X10^3 3.1 Lymphocytes (%) (Auto) 20-46 % 18 Mean Corpuscular Hemoglobin 26.0-34.0 PG 29.7 Mean Corpuscular Hemoglobin Concent 31.0-37.0 g/dL 33.2 Mean Corpuscular Volume 80-100 FL 90 Mean Platelet Volume 6.0-9.5 FL 11.3 Monocytes # (Auto) X10^3 1.3 Monocytes (%) (Auto) 3-11 % 8 Neutrophils # (Auto) X10^3 12.4 Neutrophils (%) (Auto) 51-67 % 72 Platelet Count 150-450 10^3uL 207 Potassium Level 3.5-5.1 mmol/L 5.8 6.0 Red Blood Count 4.00-5.00 10^6uL 4.21 Red Cell Distribution Width 11.8-15.6 % 12.9 Sodium Level 135-150 mmol/L 131 Total Bilirubin 0.1-1.0 mg/dL 0.5 Total Protein 6.4-8.5 g/dL 5.5 White Blood Count 4.0-11.0 10^3uL 17.30 ASSESSMENT/PLAN Hyperkalemia: observe on telemetry, Kayexalate, IVF, follow lab Allergies/Home Medications Allergies: Coded Allergies: ziprasidone mesylate (Verified Allergy, Mild, Fatigue, 04/03/16) Discussed with PCP 04/03/2016 by phone. Iodinated Contrast Media - Oral and (Verified Allergy, Unknown, 04/02/16) Macrolide Antibiotics (Verified Allergy, Unknown, 04/02/16) Sulfa (Sulfonamide Antibiotics) (Verified Allergy, Unknown, 04/02/16) aspirin (Verified Allergy, Unknown, 04/02/16) barium iodide (Verified Allergy, Unknown, 04/02/16) doxycycline (Verified Allergy, Unknown, 04/02/16) haloperidol (Verified Allergy, Unknown, 04/02/16) iodine (Verified Allergy, Unknown, 04/02/16) strawberry (Verified Allergy, Unknown, 04/02/16) sumatriptan (Verified Allergy, Unknown, TACHYCARDIA, PALPITATIONS, HTN, DIAPHORESIS, HEADACHE, 04/02/16) telithromycin (Verified Allergy, Unknown, 04/02/16) ketolides Uncoded Allergies: KETOLIDES (Allergy, Unknown, 07/22/15) MYACINS (Allergy, Unknown, 07/22/15) Reported Home Medications Scheduled Albuterol/Ipratropium (Duoneb 3mg-0.5mg/3ml) 3 ML INH TID Amlodipine Besylate (Amlodipine Besylate) 2.5 MG PO DAILY (Reported) Amoxicillin/Potassium Clav (Amox Tr-K Clv 875-125 mg Tab) 875 MG PO Q12HR Budesonide (Pulmicort) 0.5 MG INH DAILY Docusate Sodium (Stool Softener) 100 MG PO BID (Reported) Famotidine (Pepcid) 40 MG PO HS (Reported) Insulin Detemir (Levemir) 30 UNIT SC HS Insulin Lispro (Humalog) 11 UNIT SC TIDWM Levothyroxine Sodium (Levothyroxine Sodium) 100 MCG PO DAILY@0600 (Reported) Linaclotide (Linzess) 290 MCG PO DAILY (Reported) Lisinopril (Lisinopril) 10 MG PO DAILY (Reported) [place] Carbonate (Braden) 150 MG PO BID WITH MEALS Magnesium Oxide (Mag-Oxide) 400 MG PO BID (Reported) Melatonin/Pyridoxine HCl (B6) (Melatonin 3 mg Tablet) 2 EACH PO HS (Reported) Nicotine (Nicoderm) 21 MG TD DAILY Polyethylene Glycol 3350 (Miralax) 17 GM PO DAILY (Reported) Prednisone (Prednisone) 0 PO DAILY Ziprasidone (Geodon) 20 MG PO BID Scheduled PRN Acetaminophen (Tylenol) 650 MG PO Q6H PRN PRN PAIN (Reported) Albuterol Sulfate (ED- Ventolin HFA) 2 PUFF INH Q4H PRN PRN DYSPNEA Calcium Carbonate (Tums) 600 MG PO Q2H PRN PRN DYSPEPSIA Ketoprofen (Ketoprofen) 50 MG PO TID PRN PRN PAIN (Reported) Tramadol HCl (Tramadol HCl) 1-2 TAB PO Q6H PRN PRN PAIN Discontinued Medications Fluphenazine HCl (Fluphenazine HCl) 2 MG PO BID (Reported) Discontinued Reason: Course completed Fluphenazine HCl (Fluphenazine HCl) 1 MG PO DAILY PRN PRN psychosis (Reported) Discontinued Reason: Course completed Insulin Aspart (Novolog) 5 UNIT SQ TIDWM (Reported) Discontinued Reason: Course completed Insulin Detemir (Levemir) 15 UNIT SC HS (Reported) Discontinued Reason: Course completed Oxybutynin Chloride (Oxybutynin Chloride) 5 MG PO DAILY (Reported) Discontinued Reason: Course completed Durable Medical Equipment (Oxygen) 1 EA (DME) Copies to: End of Report . PARAG MARADIAGA MD Apr 17, 2016 03:57
[2016-04-17] MEDS ORDERED: LORazepam 0.5 MG (ATIVAN) TABLET PO PRN (04:00)
[2016-04-17 04:05] VITALS: BP 124/62
[2016-04-17 04:07] VITALS: BP 124/62
[2016-04-17] MEDS ORDERED: LEVOTHYROXINE 75 MCG (LEVOTHROID) TABLET ONE (05:39)
[2016-04-17] MEDS ORDERED: LEVOTHYROXINE 100 MCG (LEVOTHROID) TABLET PO SCH (06:00)
--- NOTE | 2016-04-17 07:19 | Diagnostic Imaging Report ---
INDICATION: Shortness of breath. Comparison with 04/02/2016. FINDINGS: PA and lateral views show the lungs to be well-aerated. There are no infiltrates present. Heart is not enlarged. No evidence of pulmonary edema. No hilar adenopathy. No pneumothorax or pleural effusions. IMPRESSION: Normal PA and lateral chest. Dictated by: Dictated on workstation # [id number]
[2016-04-17 07:40] LABS: ANION GAP 9.8 MEQ/L (3-15)
[2016-04-17 08:00] VITALS: BP 130/60
[2016-04-17] MEDS: ALBUTEROL/IPRATROPIUM 3MG-0.5MG/3ML (DUONEB) NEB VIAL INH SCH ×2 (08:05→13:57)
[2016-04-17] MEDS: INSULIN LISPRO 1 UNIT/0.01 ML (HUMALOG) DOSE SC SCH ×6 (08:19→17:27)
--- NOTE | 2016-04-17 08:29 | Progress Note (E) ---
Progress Note S: Patient is awake in bed. She has no new concerns. She would like to go home. She states she has been feeling well. Her son, Deonte has called to speak with me, the patient states she is ok with me discussing her care with him. O: Current Medications Acetaminophen 650 mg Q6H PRN PO Albuterol/ Ipratropium 3 ml TID INH Amlodipine 2.5 mg DAILY PO Budesonide 0.5 mg DAILY INH Calcium Carbonate 600 mg Q2H PRN PO Docusate 100 mg BID PO Insulin Detemir 30 unit HS SC Insulin Human Lispro 11 unit TIDWM SC Levothyroxine 100 mcg DAILY@0600 PO Lisinopril 10 mg DAILY PO Magnesium Oxide 400 mg BID PO Nicotine 21 mg DAILY TD Polyethylene Glycol 17 gm DAILY PO Tramadol 1-2 tab q 6 hr PRN PO Ziprasidone 20 mg BID PO Dextrose 15 gm Q15M PRN PO Dextrose If NPO PRN IV Glucagon 1 mg PRN PRN IM Insulin Human Lispro QIDACHS SC NS @ 125 mls/hr Q8H IV Ondansetron 4 mg Q6HR PRN PO Metoclopramide 10 mg Q6H PRN IV Enoxaparin 40 mg DAILY SC Lorazepam 0.5 mg TID PRN PO Famotidine 40 mg HS PO Ibuprofen 400 mg TID PRN PO I & O Past 24 hrs 04/17/16 07:00 Intake Total 256 ml Balance 256 ml Intake IV Total 256 ml Vital Signs Date Time Temp Pulse Resp B/P Pulse Ox O2 Delivery O2 Flow Rate FiO2 04/17/16 10:20 67 04/17/16 08:00 97.9 18 130/60 99 Nasal cannula General--Awake and alert. No distress. HEENT--Normocephalic. MMM in oral cavity. Lungs--Clear to auscultation bilaterally. Nonlabored respirations. Heart--RRR. No murmurs. Abdomen--Normal bowel sounds. Soft. Nondistended. Nontender. Extremities--No edema. CBC BMP Last 24 Hrs 04/16/16 23:42 04/17/16 00:35 04/17/16 07:00 Laboratory Results Past 24 Hrs 04/16/16 23:42: Alanine Aminotransferase (ALT/SGPT) 42, Albumin 3.2, Albumin/Globulin Ratio 1.391, Alkaline Phosphatase 123, Anion Gap 12.5, Aspartate Amino Transf (AST/ SGOT) 22, BUN/Creatinine Ratio 32, Basophils # (Auto) 0.0, Basophils (%) (Auto) 0, Blood Urea Nitrogen 31, Calcium Level 9.9, Calcium/Ionized Calcium Ratio 5.0 , Calculated Osmolality 277, Carbon Dioxide Level 27, Chloride Level 98, Creatinine 0.96, Eosinophils # (Auto) 0.3, Eosinophils (%) (Auto) 1, Estimat Glomerular Filtration Rate 70.8, Estimated GFR (Non- 58.5, Glucose Level 396, Hematocrit 37.70, Hemoglobin 12.5, [place] Level [Pending], Lymphocytes # (Auto) 3.1, Lymphocytes (%) (Auto) 18, Mean Corpuscular Hemoglobin 29.7, Mean Corpuscular Hemoglobin Concent 33.2, Mean Corpuscular Volume 90, Mean Platelet Volume 11.3, Monocytes # (Auto) 1.3, Monocytes (%) ( Auto) 8, Neutrophils # (Auto) 12.4, Neutrophils (%) (Auto) 72, Platelet Count 207, Potassium Level 5.8, Red Blood Count 4.21, Red Cell Distribution Width 12.9 , Sodium Level 131, Total Bilirubin 0.5, Total Protein 5.5, White Blood Count 17.30 04/17/16 00:35: Potassium Level 6.0 04/17/16 07:00: Anion Gap 9.8, BUN/Creatinine Ratio 33, Blood Urea Nitrogen 28, Calcium Level 9.1, Carbon Dioxide Level 31, Chloride Level 99, Creatinine 0.85, Estimat Glomerular Filtration Rate 81.5, Estimated GFR (Non- 67.3, Glucose Level 258, Potassium Level 5.2, Sodium Level 134 1.9.17 CXR IMPRESSION: Normal PA and lateral chest. A/P Hyperkalemia Unclear etiology. Possibly related to lisinopril, will need to be re-checked by PCP to see if YIFAN needs to be stopped. Treated with IVF's and kayexelate. Potassium is improving. Will recheck this afternoon and look to d/c this afternoon. Schizoaffective Disorder/bipolar disorder Changed fluphenazine to ziprasidone. Benztropine, bupropion, buspirone no longer on her home medication profile and these were reportedly stopped after her hospitalization from [place] 12/2015. [place] dose was 450 mg daily after that hospitalization but reduced here 03/2016 to 150 mg BID (300 mg total daily ) due to elevated lithium level. Dr. Carlos discussed with counselor who met with son, father, and patient in hospital 04/05. In her long history with patient, mood regulation has been a constant problem. For now, continue ziprasidone which is effective and which she is tolerating. Transitioned from IM to PO dosing 04/05. Leukocytosis Secondary to steroid use. No other signs of infection. Chronic hypoxic respiratory failure Secondary to COPD. Continue home dose of oxygen (2L continuously). COPD Patient is on albuterol, albuterol/ipratropium, and budesonide at home. Diabetes Continue home regimen. Hypothyroidism Continue home levothyroxine. HTN Continue home amlodipine and lisinopril. Tobaccoism Continue home nicoderm. Chronic back pain Patient uses acetaminophen and tramdol at home, will continue. FEN Medium diabetic diet. No fluids at this time. Hyperkalemia noted above. Code status Full code. Dispo Observation for above issues. Look to d/c today. DAVID WHITNEY MD Apr 17, 2016 08:29 Full code. DVT proph Lovenox and SCD's. Dispo Inpatient for above issues. Continue current cares. Adjusting SSI up given elevated blood glucose. DAVID WHITNEY MD Apr 17, 2016 08:29
[2016-04-17] MEDS ORDERED: IBUPROFEN 400 MG (MOTRIN) TABLET PO PRN (08:45)
[2016-04-17] MEDS ORDERED: amLODIPine 2.5MG (NORVASC) TAB PO SCH (09:00)
[2016-04-17] MEDS ORDERED: ZIPRASIDONE 20 MG (GEODON) CAP PO SCH (09:00)
[2016-04-17] MEDS ORDERED: ENOXAPARIN 40 MG/0.4 ML (LOVENOX) SYR SC SCH (09:00)
[2016-04-17] MEDS ORDERED: DOCUSATE SODIUM 100 MG (COLACE) CAP PO SCH (09:00)
[2016-04-17] MEDS ORDERED: NON-FORMULARY MEDICATION 1 EA EA (Linaclotide (Linzess) 290 MCG) PO SCH (09:00)
[2016-04-17] MEDS ORDERED: BUDESONIDE NEBS 0.5 MG/2ML (PULMICORT) AMP INH SCH (09:00)
[2016-04-17] MEDS ORDERED: lisINopril 10 MG (PRINIVIL) TABLET PO SCH (09:00)
[2016-04-17] MEDS ORDERED: POLYETHYLENE GLYCOL 17 GM (MIRALAX) PACKET PO SCH (09:00)
[2016-04-17] MEDS ORDERED: NICOTINE 21 MG (NICODERM) PATCH TD SCH (09:00)
[2016-04-17] MEDS ORDERED: MAGNESIUM OXIDE 400 MG (MAG-OX) TAB PO SCH (09:00)
[2016-04-17] MEDS: LITHIUM CARBONATE 150 MG CAP PO SCH ×2 (09:04→17:27)
[2016-04-17 11:38] VITALS: BP 115/65
[2016-04-17 15:35] VITALS: BP 98/64
--- NOTE | 2016-04-17 16:10 | Discharge Summary (E) ---
Discharge Summary (A) Admit Date/Time Apr 17, 2016 at 02:19 Discharge Date/Time Apr 17, 2015 Admitting Provider Elton Marsh MD Primary Care Provider Elton Marsh MD Attending Provider Elton Marsh MD, MD discharging physician Consulting Provider Admission Diagnosis Hyperkalemia History and Present Illness Ms. Hong is a 65 year old female presenting to the ED with shortness of breath , coughing, Vomiting, diarrhea and volatile blood sugars. Her story for coming in is not really coherent. SHe was recently released from the hospital with a COPD exacerbation and just finished her steroids from the hospitalization today. While in the ED she was found to be hyperkalemic. Hospital Course and Treatment Hyperkalemia Unclear etiology. Possibly related to lisinopril, will need to be re-checked by PCP to see if YIFAN needs to be stopped, possibly related to hyperglycemia, encouraging better DM control. Treated with IVF's and kayexelate. Potassium is improving. Will recheck this afternoon and look to d/c this afternoon. Schizoaffective Disorder/bipolar disorder Changed fluphenazine to ziprasidone. Benztropine, bupropion, buspirone no longer on her home medication profile and these were reportedly stopped after her hospitalization from [place] 12/2015. [place] dose was 450 mg daily after that hospitalization but reduced here 03/2016 to 150 mg BID (300 mg total daily ) due to elevated lithium level. Dr. Carlos discussed with counselor who met with son, father, and patient in hospital 04/05. In her long history with patient, mood regulation has been a constant problem. For now, continue ziprasidone which is effective and which she is tolerating. Transitioned from IM to PO dosing 04/05. Leukocytosis Secondary to steroid use. No other signs of infection. Chronic hypoxic respiratory failure Secondary to COPD. Continue home dose of oxygen (2L continuously). COPD Patient is on albuterol, albuterol/ipratropium, and budesonide at home. Diabetes Continue home regimen. Hypothyroidism Continue home levothyroxine. HTN Continue home amlodipine and lisinopril. Tobaccoism Continue home nicoderm. Chronic back pain Patient uses acetaminophen and tramdol at home, will continue. FEN Medium diabetic diet. No fluids at this time. Hyperkalemia noted above. Code status Full code. Dispo Observation for above issues. Look to d/c today. Discharge Physicial Exam General--Awake and alert. No distress. HEENT--Normocephalic. MMM in oral cavity. Lungs--Clear to auscultation bilaterally. Nonlabored respirations. Heart--RRR. No murmurs. Abdomen--Normal bowel sounds. Soft. Nondistended. Nontender. Extremities--No edema. Radiology/Laboratory Data Laboratory Results Past 24 Hrs 04/16/16 23:42: Alanine Aminotransferase (ALT/SGPT) 42, Albumin 3.2, Albumin/Globulin Ratio 1.391, Alkaline Phosphatase 123, Anion Gap 12.5, Aspartate Amino Transf (AST/ SGOT) 22, BUN/Creatinine Ratio 32, Basophils # (Auto) 0.0, Basophils (%) (Auto) 0, Blood Urea Nitrogen 31, Calcium Level 9.9, Calcium/Ionized Calcium Ratio 5.0 , Calculated Osmolality 277, Carbon Dioxide Level 27, Chloride Level 98, Creatinine 0.96, Eosinophils # (Auto) 0.3, Eosinophils (%) (Auto) 1, Estimat Glomerular Filtration Rate 70.8, Estimated GFR (Non- 58.5, Glucose Level 396, Hematocrit 37.70, Hemoglobin 12.5, [place] Level [Pending], Lymphocytes # (Auto) 3.1, Lymphocytes (%) (Auto) 18, Mean Corpuscular Hemoglobin 29.7, Mean Corpuscular Hemoglobin Concent 33.2, Mean Corpuscular Volume 90, Mean Platelet Volume 11.3, Monocytes # (Auto) 1.3, Monocytes (%) ( Auto) 8, Neutrophils # (Auto) 12.4, Neutrophils (%) (Auto) 72, Platelet Count 207, Potassium Level 5.8, Red Blood Count 4.21, Red Cell Distribution Width 12.9 , Sodium Level 131, Total Bilirubin 0.5, Total Protein 5.5, White Blood Count 17.30 04/17/16 00:35: Potassium Level 6.0 04/17/16 07:00: Anion Gap 9.8, BUN/Creatinine Ratio 33, Blood Urea Nitrogen 28, Calcium Level 9.1, Carbon Dioxide Level 31, Chloride Level 99, Creatinine 0.85, Estimat Glomerular Filtration Rate 81.5, Estimated GFR (Non- 67.3, Glucose Level 258, Potassium Level 5.2, Sodium Level 134 04/17/16 12:15: Potassium Level 4.7 1.9.17 CXR IMPRESSION: Normal PA and lateral chest. Discharge Provider's Instructions You were admitted due to the potassium in your blood being too high. This has improved. You will need to have this rechecked at the end of the week and see Dr. Marsh. Please continue your home medications as previously prescribed. Discharge Diet: Carbohydrate controlled Discharge Medications Continued Medications: Acetaminophen (Tylenol) 325 Mg Tablet 650 MG PO Q6H PRN PAIN Ref 0 TAB Albuterol Sulfate (ED- Ventolin HFA) 1 Inhaler Hfa.aer.ad 2 PUFF INH Q4H PRN DYSPNEA #1 Ref 0 INH Albuterol/Ipratropium (Duoneb 3mg-0.5mg/3ml) 3 Ml Nebu 3 ML INH TID #25 Ref 1 VIAL Amlodipine Besylate (Amlodipine Besylate) 2.5 Mg Tablet 2.5 MG PO DAILY Budesonide (Pulmicort) 0.25 Mg/Ml Nebu 0.5 MG INH DAILY #60 Ref 0 VIAL Calcium Carbonate (Tums) 300 Mg Tab.chew 600 MG PO Q2H PRN DYSPEPSIA #0 Ref 0 TAB.CHEW Docusate Sodium (Stool Softener) 100 Mg Capsule 100 MG PO BID CAP Famotidine (Pepcid) 40 Mg Tablet 40 MG PO HS TAB Insulin Detemir (Levemir) 100 Unit/1 Ml Vial 30 UNIT SC HS #1 Ref 0 VIAL Insulin Lispro (Humalog) 100 Unit/1 Ml Vial 11 UNIT SC TIDWM #1 Ref 1 VIAL Ketoprofen (Ketoprofen) 50 Mg Capsule 50 MG PO TID PRN PAIN Levothyroxine Sodium (Levothyroxine Sodium) 100 Mcg Tablet 100 MCG PO DAILY@0600 TAB Linaclotide (Linzess) 290 Mcg Capsule 290 MCG PO DAILY CAP Lisinopril (Lisinopril) 10 Mg Tablet 10 MG PO DAILY [place] Carbonate ([place]) 150 Mg Cap 150 MG PO BID WITH MEALS #30 Ref 0 CAP Magnesium Oxide (Mag-Oxide) 400 Mg Tablet 400 MG PO BID TAB Melatonin/Pyridoxine HCl (B6) (Melatonin 3 mg Tablet) 1 Each Tablet 2 EACH PO HS TAB Nicotine (Nicoderm) 21 Mg Patch 21 MG TD DAILY #30 Ref 0 PATCH Polyethylene Glycol 3350 (Miralax) 17 Gm Powd.pack 17 GM PO DAILY Prednisone (Prednisone) 5 Mg Tablet 0 PO DAILY Take 20 mg 04/11, then 15 mg 04/12 and 04/13, then 10 mg 04/14 and , then 5 mg 04/16 and 04/17, then STOP. Inflammation #16 Ref 0 TAB Tramadol HCl (Tramadol HCl) 50 Mg Tablet 1-2 TAB PO Q6H PRN PAIN #20 Ref 0 TAB Ziprasidone (Geodon) 20 Mg Cap 20 MG PO BID #30 Ref 0 CAP Follow up Follow up Referrals: Family Practice - Within 1 week @ [facility] with Elton Marsh Md New Orders: POTASSIUM - 04/19/16 Discharge Diagnosis Hyperkalemia Copies to: Additional Provider: ANI YAÑEZ End of Report . DAVID WHITNEY MD Apr 17, 2016 16:10
[2016-04-17] MEDS ORDERED: FAMOTIDINE 40 MG PO SCH (21:00)
[2016-04-17] MEDS ORDERED: FAMOTIDINE 20 MG (PEPCID) TABLET PO SCH (21:00)
[2016-04-17] MEDS ORDERED: INSULIN DETEMIR 1 UNIT/0.01 ML (LEVEMIR) DOSE SC SCH (21:00)
[2016-04-18] MEDS ORDERED: SODIUM CHLORIDE FLUSH 10 ML SYR IV PRN (01:00)
[2016-04-18] MEDS ORDERED: SODIUM CHLORIDE FLUSH 3 ML SYR IV PRN (01:00)
[2016-04-18] MEDS ORDERED: PATCH REMOVAL TOP SCH (08:59)
[2016-04-27] MEDS ORDERED: HYOS0.1218 SL (09:23)
[2016-04-27] MEDS ORDERED: OLAN20TA16 PO (09:23)
[2016-06-16] MEDS ORDERED: OXB5T PO (17:50)
[2016-06-16] MEDS ORDERED: INSU100V5 SC (17:50)
[2016-06-16] MEDS ORDERED: BECL8.7A5 IH (17:50)
[2016-06-16] MEDS ORDERED: DIVA500T7 PO (17:50)
[2016-06-16] MEDS ORDERED: ZPR40C PO (17:50)
[2016-06-17] MEDS ORDERED: OXYB10TA PO (08:35)
[2016-06-17] MEDS ORDERED: ATOR10TA56 PO (08:35)
[2016-06-17] MEDS ORDERED: DIVA500T15 PO (08:35)
[2016-06-23] MEDS ORDERED: POLY17PO2 PO (15:15)
[2016-06-23] MEDS ORDERED: DPH25C PO (15:15)
[2016-06-23] MEDS ORDERED: IBP200T PO (15:15)
[2016-06-23] MEDS ORDERED: IPRA3AMP11 INH (15:15)
[2016-06-23] MEDS ORDERED: NCT21TD TD (15:15)
[2016-06-23] MEDS ORDERED: MAGN400O7 PO (15:15)
[2016-06-23] MEDS ORDERED: ALBU2.5V12 INH (15:15)
[2016-06-23] MEDS ORDERED: AC325T PO (15:15)
[2016-06-23] MEDS ORDERED: ATOR10TA56 PO (16:24)
[2016-06-23] MEDS ORDERED: DIVA500T15 PO (16:24)
== END 2016-04-17 19:59 | disposition home or self-care (01) ==
LOC: ED 22:43 → MED/SURG 04-17 02:19
PROVIDERS: ADMIT Family Medicine; ATTEND Family Medicine
DX: E87.5 Hyperkalemia (principal); E11.9 Type 2 diabetes mellitus without complications; J96.11 Chronic respiratory failure with hypoxia; J44.9 Chronic obstructive pulmonary disease, unspecified; E03.9 Hypothyroidism, unspecified; F25.0 Schizoaffective disorder, bipolar type; F17.200 Nicotine dependence, unspecified, uncomplicated; Z79.4 Long term (current) use of insulin
CPT/HCPCS: 36415; 71020; 80048; 80053; 80178; 84132; 85025; 93005; 93010; 94640; 94762; 96361; 96372; 96374; 96375; 99218; 99283; 99285

== ENCOUNTER → 2016-04-18 | Outpatient (CLI) | payer MEDICARE ==
[~2016-04-18] MED LIST changes: +AC325T PO; +ALBU2.5V12 INH; +ATOR10TA56 PO; +BECL8.7A5 IH; +DIVA500T15 PO; +DPH25C PO; +HYOS0.1218 SL; +IBP200T PO; +MAGN400O7 PO; +OLAN20TA16 PO; +OXB5T PO; +OXYB10TA PO; +ZPR40C PO
== END ==
LOC: LAB 15:58
PROVIDERS: ATTEND Family Medicine
DX: E87.5 Hyperkalemia (principal)
CPT/HCPCS: 36415; 84132

== ENCOUNTER → 2016-04-20 | Outpatient (CLI) | payer MEDICARE ==
[2016-04-20 15:47] LABS: ANION GAP 13.6 MEQ/L (3-15)
== END ==
LOC: LAB 15:23
PROVIDERS: ATTEND Family Medicine
DX: E87.5 Hyperkalemia (principal)
CPT/HCPCS: 36415; 80048

== ENCOUNTER 2016-04-26 10:59 | Observation (INO) | payer MEDICARE ==
[~2016-04-26] VITALS: Ht 160 cm; Wt 67.0 kg
[2016-04-26] MEDS ORDERED: SODIUM CHLORIDE FLUSH 10 ML SYR IV PRN (11:25)
[2016-04-26] MEDS ORDERED: SODIUM CHLORIDE FLUSH 3 ML SYR IV PRN (11:25)
[2016-04-26 12:01] LABS: BASOPHILS % (AUTO) 0 % (0-2); EOSINOPHILS # (AUTO) 0.1 10^3uL; EOSINOPHILS % (AUTO) 1 % (0-4); LYMPHOCYTES # (AUTO) 1.7 X10^3; MEAN CORPUSCULAR HEMOGLOBIN 29.4 PG (26.0-34.0); MEAN CORPUSCULAR HGB CONC 31.9 g/dL (31.0-37.0); MEAN CORPUSCULAR VOLUME 92 FL (80-100); MEAN PLATELET VOLUME 10.5 FL (6.0-9.5); MONOCYTES # (AUTO) 1.1 X10^3; MONOCYTES % (AUTO) 10 % (3-11); NEUTROPHILS # (AUTO) 7.4 X10^3; NEUTROPHILS % (AUTO) 72 % (51-67); PLATELET COUNT 196 10^3uL (150-450); WHITE BLOOD COUNT 10.37 10^3uL (4.0-11.0)
[2016-04-26 12:08] LABS: ALBUMIN 3.6 g/dL (3.4-5.0); ANION GAP 10.9 MEQ/L (3-15); CALCULATED IONIZED CALCIUM 4.8 mg/dL (3.8-4.6); TOTAL PROTEIN 6.5 g/dL (6.4-8.5)
[2016-04-26] MEDS: ACETAMINOPHEN 500 MG TAB (TYLENOL) PO ONE ×2 (12:25→15:56)
[2016-04-26] MEDS ORDERED: LORazepam 2 MG/ML (ATIVAN) 1 ML VIAL IM ONE (12:55)
[2016-04-26 13:50] LABS: BILIRUBIN,URINE Negative (Negative); COLOR,URINE Yellow; GLUCOSE, URINE (UA) Negative (Negative); LEUKOCYTE ESTERASE ,URINE 1+ (Negative); PH,URINE 5.5 (5.0 - 8.0); UROBILINOGEN,URINE 0.2 mg/dL (0.2-1.0)
[2016-04-26 13:55] LABS: CLARITY,URINE Slightly Cloudy
[2016-04-26 13:56] LABS: URINE CENTRIFUGED VOLUME 12 mL
--- NOTE | 2016-04-26 14:00 | NUR ---
FAMILY AT BEDSIDE NOW. PT NOT YELLING OR SWINGING AT NURSES ANYMORE. CL
[2016-04-26 14:10] LABS: RBC,URINE 0-2 /HPF
--- NOTE | 2016-04-26 14:21 | NUR ---
DR Saurabh MARADIAGA EMAILED RE PT. CL
--- NOTE | 2016-04-26 15:03 | NUR ---
B ASHWINI CALLED RE PT. CL
[2016-04-26] MEDS ORDERED: LORazepam 2 MG/ML (ATIVAN) 1 ML VIAL IV ONE (15:25)
[2016-04-26] MEDS ORDERED: ACETAMINOPHEN 500 MG TAB (TYLENOL) ONE (15:56)
[2016-04-26] MEDS ORDERED: FLUMAZENIL (ROMAZICON) 0.1 MG/ML 5 ML VIAL IV ONE ×2 (18:10→18:25)
--- NOTE | 2016-04-26 18:24 | NUR ---
Patient is groggy but waking up after Romazicon given.
--- NOTE | 2016-04-26 18:44 | NUR ---
Patient is fully awake after second Romazacon given. Refuses to wear oxygen, sats dropping to 78%.
--- NOTE | 2016-04-26 19:04 | NUR ---
Report given to Geanro Gimenez RN.
--- NOTE | 2016-04-26 19:15 | NUR ---
REPORT TAKEN FROM Robert JIMENES AND ACCEPTED CARE OF PT
[2016-04-26] MEDS ORDERED: ZIPRASIDONE 20 MG INJ (GEODON) VIAL IM ONE ×3 (19:23→22:32)
--- NOTE | 2016-04-26 19:26 | NUR ---
DR WHITNEY TALKS W/[facility] & THEY WILL CALL HER BACK IN 10 MIN RE A SCREENER. CL
--- NOTE | 2016-04-26 19:30 | NUR ---
PT WAS A LITTLE COMBATIVE WHEN RN CLEAN PTS FACE. SHE HAD DRIED GREEN PHELGM ON HER LIPS
[2016-04-26] MEDS: WATER (STERILE) FOR INJECTION 10 ML VIAL INJ PRN (19:35)
--- NOTE | 2016-04-26 20:19 | NUR ---
ARIELLA ON COMPUTER DOING A FACE TO FACE. PT IS UNRESPONSIVE AND HER SON IS TALKING TO SCREENER
--- NOTE | 2016-04-26 20:19 | NUR ---
HUSEYIN HUGO, SCREENING PT VIA ITV IN PT ROOM. NURSE PRESENT WELL SON AND .
--- NOTE | 2016-04-26 20:22 | NUR ---
STERILE WATER AND THE GEODON WAS GIVEN IM SO NOT IV START OR STOP TIME
--- NOTE | 2016-04-26 20:23 | NUR ---
NURSE IN ROOM WITH PT AND FAMILY WHILE THEY DOING FACE TO FACE ON COMPUTER PER FAMILY REQUEST
--- NOTE | 2016-04-26 20:35 | NUR ---
ORAL CARE GIVEN TO PT
--- NOTE | 2016-04-26 20:38 | NUR ---
FATHER WHO IS PT GUARDIAN AGREES TO [facility]E PT TRANSFERED TO [facility] IF THEY ACCEPT HER, HE TOLD THE SCREENER AND RN IN ROOM THAT IT WAS OKAY.
--- NOTE | 2016-04-26 22:10 | NUR ---
RESTING ON SIDE
--- NOTE | 2016-04-26 22:13 | NUR ---
HAD TO REFAX CHART INFO TO BOTH [facility] AND [facility]
[2016-04-26] MEDS ORDERED: WATER (STERILE) FOR INJECTION 10 ML VIAL INJ PRN (22:30)
[2016-04-26] MEDS: ZIPRASIDONE 20 MG INJ (GEODON) VIAL IM PRN (22:34)
--- NOTE | 2016-04-26 23:08 | NUR ---
moved to room #5 to be able to keep closer view of pt
--- NOTE | 2016-04-26 23:31 | NUR ---
[facility] AND [facility] STILL HAVEN[facility]T RECEIVED THE PAPERWORK YET SO REFAXED IT
[2016-04-26 23:54] LABS: AMPHETAMINE SCREEN, URINE Negative (Negative); CANNABINOID SCREEN, URINE Negative (Negative); METHAMPHETAMINE SCREEN URINE S NEGATIVE (NEGATIVE); OPIATE SCREEN URINE Negative (Negative); PROPOXYPHENE STAT NEGATIVE (NEGATIVE)
--- NOTE | 2016-04-27 00:15 | NUR ---
CATE DECLINING ADMIT AT THIS TIME D/T THEY FEEL SHE IS NOT MEDICALLY STABLE ENOUGH AT THIS TIME. SO CALLED DR WHITNEY AND LET HER KNOW THIS AND SHE WILL ADMIT PT OBSERVATION.
[2016-04-27] MEDS: WATER (STERILE) FOR INJECTION 10 ML VIAL INJ PRN (00:31)
[2016-04-27] MEDS: ZIPRASIDONE 20 MG INJ (GEODON) VIAL IM PRN (00:31)
--- NOTE | 2016-04-27 00:36 | NUR ---
NOTIFIED E IRIS WELCHKNOTTER OF PT ADMIT
--- NOTE | 2016-04-27 00:36 | NUR ---
ALL GEODON AND STERILE H2O TO RECONSTITUTE IT HAVE BEEN GIVEN IM SO NO START / STOP TIME FOR IV MEDS.
[2016-04-27] MEDS ORDERED: SODIUM POLYSTERENE SULF SUSP 15 GM/60 ML (KAYEXALATE) BTL PO ONE (00:45)
[2016-04-27] MEDS ORDERED: ZIPRASIDONE 20 MG INJ (GEODON) VIAL IM PRN (00:45)
[2016-04-27] MEDS ORDERED: ONDANSETRON 2 MG/ML (Z0FRAN) 2 ML VIAL IV PRN (00:45)
--- NOTE | 2016-04-27 01:00 | NUR ---
Patient admitted to room 311. Came from ED per cart. Patient moans as she moves from cart to bed. Somewhat combative to attempted cares. See admission assessment.
--- NOTE | 2016-04-27 01:15 | NUR ---
CALLED PT SON KOJO TO LET HIM KNOW WE ADMITTED HIS MOM TO ROOM 311
[2016-04-27 01:36] VITALS: BP 120/77
[2016-04-27 01:41] VITALS: BP 120/77
--- NOTE | 2016-04-27 01:50 | NUR ---
When Kayexalate available, patient is unable to be aroused long enough to drink it. Straw placed in lips and patient repeatedly dosed off and showed no signs of attempting to suck or drink. Will hold for now and attempt later.
--- NOTE | 2016-04-27 05:00 | NUR ---
IV pump shows distal occlusion at site. After repeated attempts to correct the problem, fluids were stopped. Attempt x3 to establish new site. Initial site DC'd. Unable to get new site established. Dr. Mata notified.
--- NOTE | 2016-04-27 06:00 | NUR ---
Kayexalate given [place] per Dr. Mata's telephone order. Patient tolerated moderately well. Some medication leaked out right away. Patient clean and repositioned.
[2016-04-27 06:07] LABS: BASOPHILS % (AUTO) 0 % (0-2); EOSINOPHILS # (AUTO) 0.1 10^3uL; EOSINOPHILS % (AUTO) 1 % (0-4); LYMPHOCYTES # (AUTO) 1.5 X10^3; MEAN CORPUSCULAR HEMOGLOBIN 29.4 PG (26.0-34.0); MEAN CORPUSCULAR VOLUME 93 FL (80-100); MEAN PLATELET VOLUME 10.7 FL (6.0-9.5); MONOCYTES # (AUTO) 0.8 X10^3; MONOCYTES % (AUTO) 11 % (3-11); NEUTROPHILS # (AUTO) 5.2 X10^3; NEUTROPHILS % (AUTO) 68 % (51-67); PLATELET COUNT 200 10^3uL (150-450); WHITE BLOOD COUNT 7.72 10^3uL (4.0-11.0)
[2016-04-27] MEDS ORDERED: SODIUM POLYSTERENE SULF SUSP 15 GM/60 ML (KAYEXALATE) BTL PR ONE (06:20)
[2016-04-27 06:22] LABS: MEAN CORPUSCULAR HGB CONC 31.6 g/dL (31.0-37.0)
--- NOTE | 2016-04-27 06:25 | NUR ---
Patient unable to retain medication and large portion of medication is expelled. Patient cleaned. O2 replaced on patient who has been taking it off at times. O2 at 2L/NC.
[2016-04-27 06:28] LABS: ALBUMIN 2.9 g/dL (3.4-5.0); MAGNESIUM* 1.5 mg/dL (1.6-2.3); PHOSPHORUS 2.9 mg/dL (2.4-4.9)
[2016-04-27 08:22] VITALS: BP 155/89
[2016-04-27] MEDS ORDERED: NICOTINE 21 MG (NICODERM) PATCH TD SCH (09:00)
--- NOTE | 2016-04-27 09:42 | NUR ---
Report made to [facility] per Dr. Mata request due to Pt. continuing to fail outpatient management of her mental health needs. Intake ID [id number].
--- NOTE | 2016-04-27 10:50 | NUR ---
MED REC COMPLETED-current med list obtained from Ext Med History application and previous medication reconciliation from discharge and retail pharmacy ([facility]). conducted by Nedra Lantigua, PharmD Candidate 2017.
[2016-04-27] MEDS ORDERED: MAGNESIUM 1 GM/100 ML IVPB 100 ML IV SCH (13:35)
[2016-04-27] MEDS ORDERED: CEFDINIR 300 MG (OMNICEF) CAPSULE PO SCH (13:40)
[2016-04-27 14:37] LABS: ALBUMIN 3.1 g/dL (3.4-5.0); PHOSPHORUS 2.5 mg/dL (2.4-4.9)
--- NOTE | 2016-04-27 16:01 | NUR ---
Pt. has been accepted to [facility]. Pt. will be transferred today. Pt. son has been informed of her acceptance and would like to know when she will leave.
--- NOTE | 2016-04-27 16:30 | NUR ---
Verbal order from physician to give i 10 mg of Geodon in preperation of transfer to [facility]. Dose exceeds 24 hour maximun dosage of 40 mg.
[2016-04-27 17:06] VITALS: BP 116/67
[2016-04-27] MEDS ORDERED: GLUCAGON EMERGENCY 1 MG/KIT IM PRN (17:20)
[2016-04-27] MEDS ORDERED: DEXTROSE 50% 25 GM/50 ML SYRINGE IV PRN (17:20)
[2016-04-27] MEDS ORDERED: DEXTROSE ORAL GEL (GLUTOSE 40%) 15 GM TUBE PO PRN (17:20)
[2016-04-27] MEDS ORDERED: INSULIN LISPRO 1 UNIT/0.01 ML (HUMALOG) DOSE SC SCH (17:30)
== END 2016-04-27 17:15 ==
LOC: EDUNIT# 10:59 → ED 11:02 → MED/SURG 04-27 00:32
PROVIDERS: ADMIT Family Medicine; ATTEND Family Medicine
DX: F31.9 Bipolar disorder, unspecified (principal); F25.9 Schizoaffective disorder, unspecified; R82.71 Bacteriuria; J96.11 Chronic respiratory failure with hypoxia; Z99.81 Dependence on supplemental oxygen; E87.5 Hyperkalemia; E86.0 Dehydration; R41.82 Altered mental status, unspecified; J44.9 Chronic obstructive pulmonary disease, unspecified; E11.40 Type 2 diabetes mellitus with diabetic neuropathy, unspecified; F17.200 Nicotine dependence, unspecified, uncomplicated
CPT/HCPCS: 36415; 71010; 80053; 80069; 80178; 81003; 81015; 83605; 83735; 84132; 85025; 86140; 87040; 87077; 87088; 87186; 87486; 87581; 87633; 87798; 96361; 96372; 96374; 96375; 99284; A9270; G0378; G0478; G0480; J1815; J2060; J3486; J3490; J7030; 80307; 80320; 99218; 99285

== ENCOUNTER → 2016-04-26 | Outpatient (CLI) | payer MEDICARE | LOC: EMS 10:40 | PROVIDERS: ATTEND Emergency Medicine | DX: R53.1 Weakness (principal); R53.83 Other fatigue ==

== ENCOUNTER → 2016-04-27 | Outpatient (CLI) | payer MEDICARE | LOC: EMS 17:45 | PROVIDERS: ATTEND Family Medicine | DX: R41.82 Altered mental status, unspecified (principal); Z91.14 Patient's other noncompliance with medication regimen; J96.11 Chronic respiratory failure with hypoxia; E87.5 Hyperkalemia; F99 Mental disorder, not otherwise specified ==

== ENCOUNTER 2016-06-09 21:47 | Emergency (ER) | payer MEDICARE ==
[~2016-06-09] VITALS: Ht 160 cm; Wt 81.8 kg
[2016-06-09] MEDS ORDERED: ALBUTEROL/IPRATROPIUM 3MG-0.5MG/3ML (DUONEB) NEB VIAL INH ONE (22:00)
--- NOTE | 2016-06-09 22:29 | NUR ---
Pt is not a good historian. I asked her what medications she was on at home and she was unable to tell me what she took or how much the dosing was. She stated that she is no longer taking medications from Dr. Marsh but she couldn't tell me which meds those were. I did not alex the meds as reviewed or change them in the eMAR as I didn't feel that she was giving me the correct information. Advised pt to make a med list to carry with her.
[2016-06-10 00:16] VITALS: BP 88/53
== END 2016-06-10 00:15 | disposition home or self-care (01) ==
LOC: ED 21:48
DX: J44.9 Chronic obstructive pulmonary disease, unspecified (principal); Z87.01 Personal history of pneumonia (recurrent); F17.210 Nicotine dependence, cigarettes, uncomplicated
CPT/HCPCS: 71020; 87070; 87205; 94640; 99282; 99283

== ENCOUNTER 2016-06-16 16:35 | Inpatient (IN) | payer MEDICARE ==
[~2016-06-16] VITALS: Ht 160 cm; Wt 68.4 kg
--- NOTE | 2016-06-16 16:38 | NUR ---
Patient arrived by private car to ER with her son at her side. Patient wand walked to the triage room and then back to Exam room under she own power. as alert
--- NOTE | 2016-06-16 17:00 | NUR ---
Dinora RN from [facility] calls for patient report. States patient has not been taking her medications for the last three days. Son called Dinora stating patient began throwing up with AM. Nurse believes she is going through withdrawals and encouraged son to have patient seen in ED. Dinora call back number:
[2016-06-16] MEDS ORDERED: NS IV 500 ML 500 ML IV SCH (17:15)
[2016-06-16] MEDS ORDERED: ALBUTEROL/IPRATROPIUM 3MG-0.5MG/3ML (DUONEB) NEB VIAL INH ONE (17:15)
[2016-06-16] MEDS ORDERED: LORazepam 2 MG/ML (ATIVAN) 1 ML VIAL IV ONE (17:15)
[2016-06-16] MEDS ORDERED: ONDANSETRON 2 MG/ML (Z0FRAN) 2 ML VIAL IV ONE (17:15)
[2016-06-16] MEDS ORDERED: ZIPRASIDONE 20 MG INJ (GEODON) VIAL IM ONE (17:20)
[2016-06-16] MEDS ORDERED: WATER (STERILE) FOR INJECTION 10 ML VIAL IV PRN (17:35)
--- NOTE | 2016-06-16 17:50 | NUR ---
This nurse calls [facility] home health RN, for updated med list. New medication list put in computer by this nurse per RN.
[2016-06-16 17:56] LABS: BASOPHILS % (AUTO) 0 % (0-2); EOSINOPHILS # (AUTO) 0.1 10^3uL; EOSINOPHILS % (AUTO) 1 % (0-4); LYMPHOCYTES # (AUTO) 1.8 X10^3; MEAN CORPUSCULAR HEMOGLOBIN 28.6 PG (26.0-34.0); MEAN CORPUSCULAR VOLUME 90 FL (80-100); MEAN PLATELET VOLUME 11.5 FL (6.0-9.5); MONOCYTES # (AUTO) 0.6 X10^3; MONOCYTES % (AUTO) 7 % (3-11); NEUTROPHILS % (AUTO) 69 % (51-67); PLATELET COUNT 197 10^3uL (150-450); WHITE BLOOD COUNT 8.66 10^3uL (4.0-11.0)
[2016-06-16 18:00] LABS: MEAN CORPUSCULAR HGB CONC 31.7 g/dL (31.0-37.0)
[2016-06-16 18:15] LABS: ALBUMIN 3.4 g/dL (3.4-5.0); ALKALINE PHOSPHATASE 135 U/L (38-126); TOTAL PROTEIN 6.1 g/dL (6.4-8.5)
--- NOTE | 2016-06-16 18:49 | NUR ---
MARLIN FROM LAB CALLED AND GLUCOSE IS [address] RG
[2016-06-16] MEDS ORDERED: INSULIN REGULAR 1 UNIT/0.01 ML DOSE IV ONE (19:15)
[2016-06-16 20:01] LABS: BILIRUBIN,URINE Negative (Negative); CLARITY,URINE Clear; COLOR,URINE Yellow; GLUCOSE, URINE (UA) 2+ (Negative); LEUKOCYTE ESTERASE ,URINE Trace (Negative); PH,URINE 5.5 (5.0 - 8.0); UROBILINOGEN,URINE 0.2 mg/dL (0.2-1.0)
[2016-06-16 20:02] LABS: CALCULATED IONIZED CALCIUM 4.2 mg/dL (3.8-4.6); CREATINE KINASE 23 U/L (30-135); LIPASE* 27 U/L (23-300)
[2016-06-16 20:03] LABS: BUN/CREATININE RATIO 44 (10-20)
[2016-06-16 20:12] LABS: ANION GAP 13.3 MEQ/L (3-15)
[2016-06-16 20:21] LABS: RBC,URINE 0-2 /HPF; URINE CENTRIFUGED VOLUME 12 mL
[2016-06-16 20:22] LABS: AMORPHOUS SEDIMENT,UR 3+ /HPF
[2016-06-16 20:23] LABS: AMPHETAMINE SCREEN, URINE Negative (Negative); CANNABINOID SCREEN, URINE Negative (Negative); METHAMPHETAMINE SCREEN URINE S NEGATIVE (NEGATIVE); OPIATE SCREEN URINE Negative (Negative); PROPOXYPHENE STAT NEGATIVE (NEGATIVE)
[2016-06-16 20:52] LABS: ABG PH 7.21 (7.35-7.45)
[2016-06-16 20:53] LABS: ABG OXYGEN SATURATION 65 % (95-98); ABG PCO2 80 mmHg (35-45); ABG PO2 43 mmHg (80-105)
--- NOTE | 2016-06-16 21:34 | NUR ---
AT 2124 DR RG REMOVED OXYGEN TO CHECK ON SATS AND PT SATS DOWN TO 81 % , O2 REAPPLIED AT 4L/M/NC
--- NOTE | 2016-06-16 21:46 | NUR ---
TELE TEXT SENT TO HOSPITALIST THEY RECEIVED AND READ IT.
--- NOTE | 2016-06-16 22:04 | NUR ---
DR RG SPOKE WITH HOSPITALIST AND TO ADMIT TO ICU. CALLED SUGEY TO ADMIT TO 342
[2016-06-16] MEDS ORDERED: DEXTROSE ORAL GEL (GLUTOSE 40%) 15 GM TUBE PO PRN (22:55)
[2016-06-16] MEDS ORDERED: ALBUTEROL 0.083% NEB SOLUTION 2.5 MG/3 ML VIAL INH PRN (22:55)
[2016-06-16] MEDS ORDERED: DEXTROSE 50% 25 GM/50 ML SYRINGE IV PRN (22:55)
[2016-06-16] MEDS ORDERED: GLUCAGON EMERGENCY 1 MG/KIT IM PRN (22:55)
--- NOTE | 2016-06-16 23:03 | NUR ---
PATIENT ARRIVED TO [place] [id number] VIA ED CART AT THIS TIME, ACCOMPANIED BY BLENDER SNUFF. TRANSFERRED TO BED IN ROOM VIA SLIDE BOARD AND ASSIST OF 3. BEDSIDE MONITORING INITIATED, VITALS OBTAINED AND ASSESSMENT COMPLETED. WILL CONTINUE TO MONITOR AND ASSESS NEEDED.
[2016-06-16 23:11] VITALS: BP 161/77
[2016-06-16 23:15] VITALS: BP 136/77
[2016-06-16] MEDS: ALBUTEROL/IPRATROPIUM 3MG-0.5MG/3ML (DUONEB) NEB VIAL INH SCH (23:49)
[2016-06-16 23:57] VITALS: BP 161/77
[2016-06-17] VITALS (22 sets, daily range): BP systolic 125–179; BP diastolic 62–100
[2016-06-17] MEDS ORDERED: SODIUM CHLORIDE FLUSH 20 ML ONE (01:14)
[2016-06-17] MEDS ORDERED: SODIUM CHLORIDE FLUSH 3 ML SYR IV PRN (01:30)
[2016-06-17] MEDS: HYDROmorphone 1 MG/ML (DILAUDID) SYRINGE IV PRN ×5 (01:58→20:23)
[2016-06-17 03:26] LABS: ABG PCO2 72 mmHg (35-45); ABG PH 7.24 (7.35-7.45); ABG PO2 55 mmHg (80-105)
[2016-06-17 03:27] LABS: ABG OXYGEN SATURATION 81 % (95-98)
[2016-06-17 03:28] LABS: BiPAP RESP RATE 14
[2016-06-17] MEDS ORDERED: INSULIN LISPRO 1 UNIT/0.01 ML (HUMALOG) DOSE SC ONE (04:56)
[2016-06-17] MEDS: INSULIN LISPRO 1 UNIT/0.01 ML (HUMALOG) DOSE SC SCH ×9 (04:57→20:23)
[2016-06-17] MEDS: ALBUTEROL/IPRATROPIUM 3MG-0.5MG/3ML (DUONEB) NEB VIAL INH SCH ×4 (05:30→22:55)
[2016-06-17 05:47] LABS: BASOPHILS % (AUTO) 0 % (0-2); EOSINOPHILS # (AUTO) 0.1 10^3uL; EOSINOPHILS % (AUTO) 1 % (0-4); LYMPHOCYTES # (AUTO) 2.4 X10^3; MEAN CORPUSCULAR HEMOGLOBIN 28.2 PG (26.0-34.0); MEAN CORPUSCULAR HGB CONC 30.9 g/dL (31.0-37.0); MEAN CORPUSCULAR VOLUME 92 FL (80-100); MEAN PLATELET VOLUME 11.5 FL (6.0-9.5); MONOCYTES # (AUTO) 0.9 X10^3; MONOCYTES % (AUTO) 9 % (3-11); NEUTROPHILS # (AUTO) 6.6 X10^3; NEUTROPHILS % (AUTO) 65 % (51-67); PLATELET COUNT 198 10^3uL (150-450); WHITE BLOOD COUNT 10.17 10^3uL (4.0-11.0)
[2016-06-17 06:00] LABS: ABG OXYGEN SATURATION 91 % (95-98); ABG PCO2 68 mmHg (35-45); ABG PH 7.26 (7.35-7.45); ABG PO2 73 mmHg (80-105); BiPAP RESP RATE 14
[2016-06-17 06:07] LABS: ANION GAP 10.4 MEQ/L (3-15)
[2016-06-17 06:08] LABS: CALCULATED IONIZED CALCIUM 4.4 mg/dL (3.8-4.6); TOTAL PROTEIN 5.8 g/dL (6.4-8.5)
[2016-06-17] MEDS: HEPARIN 5000 UNIT/0.5 ML SYRINGE SC SCH ×3 (06:32→21:26)
--- NOTE | 2016-06-17 07:00 | NUR ---
REPORT GIVEN TO EDILIA MASCORRO AT THIS TIME. ALL CARES RELINQUISHED.
--- NOTE | 2016-06-17 07:20 | NUR ---
See ICU assessment - LS dim throughout anteriorly - Dr Saurabh Marsh in room - reports pain "my back"
--- NOTE | 2016-06-17 07:30 | NUR ---
IV 22G LFA X1 attempt c aseptic technique - NS to infuse @ 125 mL/hr per pump
--- NOTE | 2016-06-17 07:40 | NUR ---
SL DC'd JONNATHAN - swelling >1 inch infiltration - pressure held until bleeding stopped - drsg applied
[2016-06-17] MEDS: SODIUM CHLORIDE FLUSH 10 ML SYR IV PRN (07:47)
[2016-06-17] MEDS ORDERED: ZIPRASIDONE 20 MG (GEODON) CAP PO SCH (08:00)
--- NOTE | 2016-06-17 08:00 | NUR ---
O2 to 4 L per nc - Fed CL breakfast - tremors in hands - unable to feed self liquid diet - questioning how many stitches "I had hernia surgery" - patient education; "cramping pain" points to low midabdomen - Shin draining clear yellow urine with strong odor
[2016-06-17] MEDS: LEVOTHYROXINE 100 MCG (LEVOTHROID) TABLET PO SCH (08:21)
--- NOTE | 2016-06-17 08:40 | NUR ---
MED REC COMPLETED-current med list obtained from Ext Med History application and previous medication reconciliation from discharge.
--- NOTE | 2016-06-17 09:00 | NUR ---
To Xray per w/c c O2 2 4 L per nc - O2 sat 95% - SBA X1 for transfer to w/c
--- NOTE | 2016-06-17 09:30 | NUR ---
Back to room - transferred self to bed - "my back" - LS posteriorly: dim throughout c tight end expiratory wz - RT in room --> BiPAP applied - patient immediately started crying "I can't breathe" --- repeating self over and over getting louder and louder --> RT in room --> O2 sat 91%
[2016-06-17] MEDS: PANTOPRAZOLE IV 40 MG in SODIUM CHLORIDE FLUSH 10 ML IV SCH ×2 (09:40→20:22)
--- NOTE | 2016-06-17 09:45 | NUR ---
Dr Saurabh Marsh notified - orders received - O2 per nc @ 4 L applied - BiPaP off
--- NOTE | 2016-06-17 10:00 | NUR ---
O2 sat 96% c O2 per nc 4L - dilaudid 0.5 mg or 0.5 mL slow IV push "my back"
--- NOTE | 2016-06-17 10:56 | NUR ---
Lab in room
--- NOTE | 2016-06-17 11:41 | NUR ---
G in progress - attempts to get OOB - "I'm hungry"
[2016-06-17 11:46] LABS: ABG OXYGEN SATURATION 95 % (95-98); ABG PCO2 71 mmHg (35-45); ABG PH 7.25 (7.35-7.45); ABG PO2 89 mmHg (80-105)
[2016-06-17 11:47] LABS: ARTERIAL BLOOD GAS DELIVERY nc
--- NOTE | 2016-06-17 12:10 | NUR ---
Accu check 249 --- humalog 3 units SQ per SSI
[2016-06-17] MEDS: LIRAGLUTIDE 18 MG/3 ML SC SCH (13:12)
--- NOTE | 2016-06-17 14:25 | NUR ---
Accu check 230 --- humalog 3 units per SSI
--- NOTE | 2016-06-17 15:00 | NUR ---
Neuro's does not keep eyes open long enough to assess for brisk vs sluggish pupil reaction - pupils 5 - post RT TX freq moist tight cough nonproductive
--- NOTE | 2016-06-17 16:20 | NUR ---
Jjuu - cries out "my back" - reports LBP - Dilaudid 0.5 mg slow IV push as ordered
--- NOTE | 2016-06-17 17:10 | NUR ---
Up to chair for supper c SBA X1
--- NOTE | 2016-06-17 17:51 | NUR ---
Ate 100% for supper - humalog 5 units SQ BRICE as ordered
--- NOTE | 2016-06-17 18:11 | NUR ---
Back to bed - O2 sat 95%
--- NOTE | 2016-06-17 18:24 | NUR ---
ABG in progress - Dr Saurabh Marsh in room
[2016-06-17 18:29] LABS: ABG OXYGEN SATURATION 89 % (95-98); ABG PCO2 62 mmHg (35-45); ABG PH 7.31 (7.35-7.45); ABG PO2 65 mmHg (80-105)
[2016-06-17 18:30] LABS: ARTERIAL BLOOD GAS DELIVERY nc
--- NOTE | 2016-06-17 19:00 | NUR ---
RECEIVED REPORT FROM EDILIA MASCORRO AT THIS TIME. ALL CARES ASSUMED. PATIENT IS RESTING QUIETLY IN BED AT THIS TIME. CALL LIGHT WITHIN REACH.
[2016-06-17] MEDS: ZIPRASIDONE 20 MG (GEODON) CAP PO SCH (20:23)
[2016-06-17] MEDS ORDERED: INSULIN DETEMIR 1 UNIT/0.01 ML (LEVEMIR) DOSE SC SCH (21:00)
[2016-06-18] VITALS (15 sets, daily range): BP systolic 114–165; BP diastolic 59–85
--- NOTE | 2016-06-18 00:38 | NUR ---
PATIENT PULLS BIPAP OFF AT THIS TIME. REFUSES TO PUT MASK BACK ON STATING "ITS MAKING ME SICKER" AFTER SEVERAL MINUTES AGREES TO WEAR NASAL CANNULA. APPLIED AT 4L. WILL CONTINUE TO MONITOR AND ASSESS NEEDED.
[2016-06-18] MEDS: INSULIN LISPRO 1 UNIT/0.01 ML (HUMALOG) DOSE SC SCH ×4 (05:41→14:47)
[2016-06-18 06:03] LABS: BASOPHILS % (AUTO) 0 % (0-2); EOSINOPHILS # (AUTO) 0.2 10^3uL; EOSINOPHILS % (AUTO) 2 % (0-4); LYMPHOCYTES # (AUTO) 1.8 X10^3; MEAN CORPUSCULAR HEMOGLOBIN 28.2 PG (26.0-34.0); MEAN CORPUSCULAR VOLUME 90 FL (80-100); MEAN PLATELET VOLUME 10.9 FL (6.0-9.5); MONOCYTES # (AUTO) 0.9 X10^3; MONOCYTES % (AUTO) 10 % (3-11); NEUTROPHILS # (AUTO) 6.2 X10^3; NEUTROPHILS % (AUTO) 69 % (51-67); PLATELET COUNT 183 10^3uL (150-450); WHITE BLOOD COUNT 8.98 10^3uL (4.0-11.0)
[2016-06-18 06:05] LABS: MEAN CORPUSCULAR HGB CONC 31.4 g/dL (31.0-37.0)
[2016-06-18] MEDS: LEVOTHYROXINE 100 MCG (LEVOTHROID) TABLET PO SCH (06:18)
[2016-06-18] MEDS: HEPARIN 5000 UNIT/0.5 ML SYRINGE SC SCH (06:19)
[2016-06-18 06:21] LABS: ANION GAP 8.1 MEQ/L (3-15)
[2016-06-18 06:30] LABS: ABG PCO2 57 mmHg (35-45); ABG PH 7.37 (7.35-7.45); ABG PO2 51 mmHg (80-105)
[2016-06-18 06:31] LABS: ABG OXYGEN SATURATION 84 % (95-98)
[2016-06-18] MEDS: ALBUTEROL/IPRATROPIUM 3MG-0.5MG/3ML (DUONEB) NEB VIAL INH SCH ×3 (07:23→23:04)
--- NOTE | 2016-06-18 07:27 | NUR ---
Pt found lying in bed sleeping on 5 l/min NC, SPO2 99%, HR 92, RR 16 and non labored. O2 titrated to 3 l/min NC. BS have a fine wheeze in upper left lobe, otherwise clear before Duoneb via SVN/Mask which was tolerated well.
--- NOTE | 2016-06-18 07:30 | NUR ---
Pt. resting in bed with eyes closed, RT here for treatment. Pt. awakens easily and quickly is moaning and hollering that she needs to use the restroom. Reminded pt. that she has a catheter, but she continues to state she is wet. Upon inspection, observed a small amount of liquid between legs. Catheter and carlene care provided, chux pad changed. Will continue to monitor for potential catheter leakage. Pt. reports pain all over and will cry out, but then easily fall back to sleep. She is also reporting nausea this morning, but no emesis or heaving. O2 decreased to 3L/NC at this time by RT.
[2016-06-18] MEDS: ONDANSETRON 2 MG/ML (Z0FRAN) 2 ML VIAL IV PRN ×2 (08:27→15:42)
[2016-06-18] MEDS: PANTOPRAZOLE IV 40 MG in SODIUM CHLORIDE FLUSH 10 ML IV SCH (08:27)
--- NOTE | 2016-06-18 08:43 | NUR ---
Pt. given Zofran for continued c/o nausea. Repositioned in bed for breakfast. She reports pain to back, states it is "bad", but remains quite drowsy. Will let pt. eat some breakfast and become more alert prior to giving Dilaudid.
--- NOTE | 2016-06-18 08:49 | NUR ---
SPO2 89% on 3L/NC. O2 increased to 4L/NC. RT notified.
[2016-06-18] MEDS ORDERED: ENOXAPARIN 40 MG/0.4 ML (LOVENOX) SYR SC SCH ×2 (09:00→21:00)
[2016-06-18] MEDS ORDERED: ONDANSETRON 4 MG (ZOFRAN) ORAL DISSOLVE TAB PO PRN (09:00)
[2016-06-18] MEDS ORDERED: MAGNESIUM HYDROXIDE 80MG/ML (MILK OF MAGNESIA) 30 ML UDC PO PRN (09:00)
[2016-06-18] MEDS ORDERED: DOCUSATE SODIUM 100 MG (COLACE) CAP PO PRN (09:00)
[2016-06-18] MEDS ORDERED: POLYETHYLENE GLYCOL 17 GM (MIRALAX) PACKET PO PRN (09:00)
[2016-06-18] MEDS: PANTOPRAZOLE 40 MG (PROTONIX) TAB PO SCH (09:00)
[2016-06-18] MEDS ORDERED: ACETAMINOPHEN 325 MG TAB (TYLENOL) PO PRN (09:00)
[2016-06-18] MEDS: LIRAGLUTIDE 18 MG/3 ML SC SCH (09:05)
--- NOTE | 2016-06-18 09:16 | NUR ---
Pt. has been SL'd per MD orders, UA has been sent to lab. Pt. ate 40% of breakfast, scheduled insulin held as ordered. Pt. continues to c/o pain, but remains drowsy, falling asleep quickly after interactions.
--- NOTE | 2016-06-18 09:20 | NUR ---
New order for PO Protonix held - pt. received IV per previous order.
[2016-06-18] MEDS: LEVOFLOXACIN 500 MG TAB (LEVAQUIN) PO SCH (09:52)
[2016-06-18] MEDS: NICOTINE 21 MG (NICODERM) PATCH TD SCH (09:53)
[2016-06-18] MEDS: SODIUM CHLORIDE FLUSH 10 ML SYR IV PRN ×2 (12:36→15:41)
[2016-06-18] MEDS: HYDROmorphone 1 MG/ML (DILAUDID) SYRINGE IV PRN ×3 (12:36→23:07)
--- NOTE | 2016-06-18 12:39 | NUR ---
Pt. is staying awake to eat lunch, though she c/o nausea. She repeatedly c/o generalized pain, rates 9/. Dilaudid 0.5mg IV given per order.
--- NOTE | 2016-06-18 13:37 | NUR ---
Pt. went to [facility] for VQ scan at 1330 via WC with O2 on at 4L/NC. Bed linens changed.
--- NOTE | 2016-06-18 14:02 | NUR ---
MULTIDISCIPLINARY MTG/DR. FORD: Pt. admitted with respiratory failure. Pt. currently on 4L oxygen and her baseline is 2L. Pt. had been out of [place] for two weeks now and has been off her medication and home oxygen. Discharge plans unknown at this time.
--- NOTE | 2016-06-18 14:25 | NUR ---
Pt. returns to room from having VQ scan. Pt. assisted into bed and onto L side.
[2016-06-18] MEDS ORDERED: INSULIN LISPRO 1 UNIT/0.01 ML (HUMALOG) DOSE SC SCH (14:53)
--- NOTE | 2016-06-18 14:59 | NUR ---
Pt found lying in bed on 4 l/min NC, SPO2 93%, HR 97, RR 16 and non labored with wheezes throughout all lung patel before Duoneb via SVN/MASK which was tolerated well. Wheezes continue post Tx. Addendum: 06/18/16 at 1515 by Rizwan Jackson RT Pt weight is up aprox 4.5 kg in past 48 hrs.
--- NOTE | 2016-06-18 15:05 | NUR ---
Pt. requesting a peanut butter and jelly sandwich, states she no longer feels nauseous. Kitchen notified of request.
--- NOTE | 2016-06-18 16:00 | NUR ---
Pt. has been tearful, family at bedside. She reports that she does not want to go back to [place] and she wants to go home with her dad and son. She also wants a new primary care physician. chamber worker notified of pts. wishes.
--- NOTE | 2016-06-18 16:25 | NUR ---
Dr. Carlos notified of pts. increased anxiety, tearfulness and c/o abdominal pain. Pt. shows that pain is located to the left and inferior to her hernia where a surgical scar is located. The area is hard to palpation over the scar and tender to touch. However, her hernia is soft and is non-tender to touch. LBM was 06/16/16 and she is refusing to take any medication for constipation at this time. Dr. Carlos here to see pt. and discuss plan. Pt. is agreeable to having CT angio of chest with premedication and will also have a CT abd/pelvis. These will be done in early am to allow enough time for premedication regimen. Addendum: 06/18/16 at 1805 by Mary Elliott RN While Dr. Carlos in room, pt. became nauseous, had 400mL emesis. She had already received Zofran IV. She had eaten half of the peanut butter and jelly sandwich.
[2016-06-18] MEDS: D5 1/2 NS W/KCL 20 MEQ/L 1,000 ML IV SCH (16:59)
--- NOTE | 2016-06-18 17:19 | NUR ---
Pts. son, Deonte, notified of plan for CT scans in am with premedication. Notified at the request of pt.
[2016-06-18] MEDS ORDERED: HYDROCORTISONE 100 MG/2 ML (Solu-CORTEF) VIAL IV ONE ×3 (18:00→23:00)
[2016-06-18] MEDS ORDERED: PROMETHAZINE HCL INJ 12.5 MG in SODIUM CHLORIDE 25 ML IV PRN (19:35)
[2016-06-18] MEDS ORDERED: SODIUM CHLORIDE 25 ML IV ONE ×2 (20:06→20:13)
[2016-06-18] MEDS ORDERED: PROMETHAZINE 25 MG/ML (PHENERGAN) 1 ML VIAL ONE (20:06)
[2016-06-18] MEDS ORDERED: SODIUM CHLORIDE 250 ML ONE (20:24)
[2016-06-18] MEDS: ZIPRASIDONE 20 MG (GEODON) CAP PO SCH (20:27)
[2016-06-18] MEDS: ATORVASTATIN 10 MG (LIPITOR) TABLET PO SCH (20:27)
[2016-06-18] MEDS: DIVALPROEX EXT RELEASE 500 MG (DEPAKOTE ER) TAB PO SCH (20:28)
--- NOTE | 2016-06-18 20:40 | NUR ---
Shy po intake of hs medications, Lipitor, Geodon and Depakote with sips of H20. Had emesis of 300 ml - thick mucous, undigested carrots and goulash from dinner after Medications and H2O. IV Phenergan running at time.
[2016-06-18] MEDS: INSULIN DETEMIR 1 UNIT/0.01 ML (LEVEMIR) DOSE SC SCH (20:54)
--- NOTE | 2016-06-18 21:00 | NUR ---
Family at bedside, Shy continues with abdominal discomfort, slight nausea, no further emesis, resting quietly.
--- NOTE | 2016-06-18 23:10 | NUR ---
0.5 mg Dilaudid IV for abdominal pain #9
--- NOTE | 2016-06-18 23:35 | NUR ---
Resting quietly in bed with eyes closed.
[2016-06-19] MEDS: ONDANSETRON 2 MG/ML (Z0FRAN) 2 ML VIAL IV PRN (02:27)
--- NOTE | 2016-06-19 02:30 | NUR ---
Prn IV Zofran for c/o nausea 0320
[2016-06-19] MEDS: D5 1/2 NS W/KCL 20 MEQ/L 1,000 ML IV SCH ×2 (03:51→16:36)
[2016-06-19] MEDS: HYDROmorphone 1 MG/ML (DILAUDID) SYRINGE IV PRN ×9 (03:53→23:39)
--- NOTE | 2016-06-19 03:55 | NUR ---
Prn IV Dilaudid 0.5 mg per order for complaints of abdominal discomfort #10
[2016-06-19 04:00] VITALS: BP 143/72
--- NOTE | 2016-06-19 04:00 | NUR ---
IV attempted R AC/ L AC for CT scan in morning, unsuccessful. Gas Pumping Station Supervisor notified, vein finder brought to ICU, Sabina YEBOAH unsuccessful attempts at IV R/L AC R forearm. Gas Pumping Station Supervisor aware, will notify anesthesia in morning. Radiology concerned with viability of veins for contrast administration.
[2016-06-19] MEDS ORDERED: HYDROCORTISONE 100 MG/2 ML (Solu-CORTEF) VIAL IV ONE ×3 (05:00→06:00)
[2016-06-19] MEDS ORDERED: diphenhydrAMINE 50 MG/ML INJ (BENADRYL) IV ONE ×3 (05:30→13:45)
[2016-06-19 06:12] LABS: MEAN CORPUSCULAR HEMOGLOBIN 28.1 PG (26.0-34.0); MEAN CORPUSCULAR HGB CONC 32.1 g/dL (31.0-37.0); MEAN CORPUSCULAR VOLUME 88 FL (80-100); PLATELET COUNT 191 10^3uL (150-450); WHITE BLOOD COUNT 6.83 10^3uL (4.0-11.0)
[2016-06-19] MEDS ORDERED: LIDOCAINE PF 1% (XYLOCAINE) 2 ML VIAL INJ ONE (06:41)
[2016-06-19 06:47] LABS: BAND NEUTROPHILS % 0 % (0-6); EOSINOPHILS % 0 % (0-4); LYMPHOCYTES # 0.5 #; MONOCYTES # 0.1 #; MONOCYTES % 2 % (3-11); SEGMENTED NEUTROPHILS % 90 % (51-67); TOTAL CELLS COUNTED 100
[2016-06-19 06:49] LABS: ALBUMIN 2.6 g/dL (3.4-5.0); ANION GAP 8.7 MEQ/L (3-15); CALCULATED IONIZED CALCIUM 4.3 mg/dL (3.8-4.6); RBC MORPH NORMAL (NORMAL); TOTAL PROTEIN 5.3 g/dL (6.4-8.5)
--- NOTE | 2016-06-19 06:50 | NUR ---
Tito MULE PACKER in room, multiple attempts for R/L ac IV, 20 G L forearm, with power point
[2016-06-19 06:53] LABS: MAGNESIUM* 1.5 mg/dL (1.6-2.3)
--- NOTE | 2016-06-19 07:00 | NUR ---
PO medications held due to CT scheduled and emesis with po intake.
--- NOTE | 2016-06-19 07:50 | NUR ---
Pt to CT per stretcher with O2 on at 4 L/NC. Pt accompanied to CT by Ricci YEBOAH and Silvia YEBOAH.
--- NOTE | 2016-06-19 08:05 | NUR ---
Patient is being prepped to go to CT for a planned CAT scan of the lungs and abdomen. Addendum: 06/19/16 at 1123 by Jaspreet Terrazas RN Amended: Links added.
--- NOTE | 2016-06-19 08:17 | NUR ---
NUTRITION ASSESSMENT Level 1 Patient: Shy Hong Age/Sex: 66/F Date Screened: 06-19-16 Weight: 158.4#/72 kg Height: 63 inches Primary Diagnosis: respiratory failure Diet Order: NPO Relevant labs: sodium 134, glucose 294, magnesium 1.5 Food allergies: STRAWBERRIES Nutrition Assessment Criteria Age over 80: N Body Mass Index (BMI) under 19: N Admission Screening Indicates Risk? 6 points Moderate/High Risk Diagnosis: 3 points TPN or PPN: N NPO or clear liquid diet: Yes Serum Glucose <70 or >180: 3 points Hgb A1c >6.7: N/A Total: 12 points Risk Screen: __ Patient at low nutritional risk based on available data; reevaluate in 5-7 days __ Patient at moderate nutritional risk based on available data; reevaluate in 3-5 days _X_ Patient at high nutritional risk; complete Nutrition Assessment within 48 hours of admission.
[2016-06-19] MEDS: NICOTINE PATCH REMOVAL TOP SCH (08:59)
[2016-06-19] MEDS ORDERED: ENOXAPARIN 80 MG/0.8 ML (LOVENOX) SYR SC SCH (09:00)
[2016-06-19] MEDS: ALBUTEROL/IPRATROPIUM 3MG-0.5MG/3ML (DUONEB) NEB VIAL INH SCH ×3 (09:14→22:18)
[2016-06-19] MEDS: LEVOFLOXACIN 500 MG TAB (LEVAQUIN) PO SCH (09:35)
[2016-06-19] MEDS: LEVOTHYROXINE 100 MCG (LEVOTHROID) TABLET PO SCH (09:36)
[2016-06-19] MEDS: LIRAGLUTIDE 18 MG/3 ML SC SCH (09:37)
[2016-06-19] MEDS: PANTOPRAZOLE 40 MG (PROTONIX) TAB PO SCH (09:37)
[2016-06-19] MEDS: NICOTINE 21 MG (NICODERM) PATCH TD SCH (09:40)
[2016-06-19 10:49] VITALS: BP 128/56
--- NOTE | 2016-06-19 11:29 | NUR ---
NUTRITION ASSESSMENT Level II Patient: Shy Hong Age/Sex: 66/F Date Assessed: 06-19-16 ASSESSMENT Pertinent History: Patient admitted with respiratory failure and screened at high nutritional risk secondary to diagnosis and failure to take medications (including insulin) for a week prior to admission and concern for ability to care for herself at home. PMHx includes diabetes, HTN, sleep apnea, COPD, hypothyroidism, bipolar disorder and schizoaffective disorder. Usual weight fluctuates between 146-154#; most recently pt. weighed 147# in 2016. Of note, pt. was recently DC'd from [facility] weeks ago. She was getting home health, but noted in physician report that this service may not be continuing due to how pt. was treating home health staff. Meds/Nutrition: Levemir, D5 NS w/ KCl, Protonix, Colace, Synthroid Weight: 158.4#/72 kg Height: 63 inches Body Mass Index (BMI): 28.1 [place] Body Weight : 115#/52.2 kg % IBW: 137% GASTROINTESTINAL Appetite: poor Diet Order: NPO Unintentional loss of >10 lbs. in 3 months: N Difficult to chew/swallow: N Diabetes: Yes Relevant Labs: sodium 134, glucose 294, magnesium 1.5 Calculations for Nutritional Assessment Estimated calorie needs: 25-28 kcals/kg = 1,800-2,000 kcals Estimated protein needs: 1.0-1.2 g/kg = 72-86 g./day DIAGNOSIS 1. Nutrition Diagnosis: Concern for inability to appropriate care for self at home related to mental illness as evidenced by failure to take medically-necessary medications (including psych, insulin), repeated hospitalizations for uncontrolled blood sugars, and concern that home health services will no longer be available for her. NUTRITIONAL INTERVENTION Goal: Patient will receive adequate nutrition to meet her needs. Plan: Will monitor length of time NPO and tolerance to diet as advanced. Plan to discuss safety at home with multidisciplinary care team, as her nutritional status is concerning. MONITORING & EVALUATION __ Monitor patients menu selections __ Monitor patients food intake per nursing notes _X_ Monitor NPO/clear liquid days _X_ Monitor lab values __ Monitor I&O __ Other
[2016-06-19] MEDS ORDERED: NITROGLYCERIN SUBLINGUAL 0.4 MG (NITROQUICK) TABLET SL PRN (11:35)
[2016-06-19] MEDS: INSULIN LISPRO 1 UNIT/0.01 ML (HUMALOG) DOSE SC SCH ×3 (12:03→21:00)
[2016-06-19 14:03] VITALS: BP 115/56
--- NOTE | 2016-06-19 14:20 | NUR ---
Tito Antunez CAMBERING MACHINE OPERATOR in room to attempt placement of a central line.
--- NOTE | 2016-06-19 14:55 | NUR ---
Central line in place. Xray notified for placement check. Line is in right side of neck.
[2016-06-19] MEDS ORDERED: diphenhydrAMINE 50 MG/ML INJ (BENADRYL) ONE (15:09)
--- NOTE | 2016-06-19 15:15 | NUR ---
BS are decreased, clear, no cough with nebulizer tx's.. O2 @ 4L nc, 95-99%.
[2016-06-19] MEDS: SODIUM CHLORIDE FLUSH 10 ML SYR IV PRN ×3 (19:05→23:38)
--- NOTE | 2016-06-19 19:05 | NUR ---
Report received, care assumed. Pt resting in bed. Complains of discomfort "in hernia", rated 9/10. Gave Dilaudid 0.5 mg IV. Will monitor.
[2016-06-19 20:00] VITALS: BP 153/73
[2016-06-19] MEDS: ZIPRASIDONE 20 MG (GEODON) CAP PO SCH (20:57)
[2016-06-19] MEDS: ATORVASTATIN 10 MG (LIPITOR) TABLET PO SCH (20:57)
[2016-06-19] MEDS: DIVALPROEX EXT RELEASE 500 MG (DEPAKOTE ER) TAB PO SCH (20:57)
[2016-06-19] MEDS: INSULIN DETEMIR 1 UNIT/0.01 ML (LEVEMIR) DOSE SC SCH (20:58)
--- NOTE | 2016-06-19 21:05 | NUR ---
Pt took evening medications without difficulty. Pt declines oral care at this time, states she will let me know when she's ready. Pt's family left for the night. Denies other needs at this time.
--- NOTE | 2016-06-19 21:20 | NUR ---
Pt reports discomfort in neck, rated 9/10. Administered Dilaudid IV.
[2016-06-19 22:00] VITALS: BP 114/52
--- NOTE | 2016-06-19 22:20 | NUR ---
Pt found lying in bed on 3.5 l/min NC, SPO2 96%, HR 90, RR 18 and non labored with clear BS at this time. Duoneb tolerated well with no change to BS post Tx. BiPAP on standby in the room but Pt says she will not wear it, BiPAP is not indicated at this time.
[2016-06-19] MEDS ORDERED: diphenhydrAMINE 25 MG (BENADRYL) TABLET PO PRN (23:30)
--- NOTE | 2016-06-19 23:30 | NUR ---
Pt c/o itching all over, no redness or obvious areas affected. Notified student education specialist, received new order for Benadryl.
--- NOTE | 2016-06-19 23:35 | NUR ---
Administered Benadryl 25 mg PO for itching.
--- NOTE | 2016-06-19 23:40 | NUR ---
Pt c/o discomfort in "stomach", rated 9/10. Administered Dilaudid 0.5 mg IV.
[2016-06-20] VITALS: BP 125/66
[2016-06-20 02:00] VITALS: BP 123/65
--- NOTE | 2016-06-20 02:30 | NUR ---
Pt has been restless tonight. Called the front end wheel loader operator about "a patient suspicious acting at nurse's desk, worried for the nurse's safety". Needed to reassure pt that no one else was at nurse's station with staff. Pt was uncomfortable with the lights. Lights have been turned down as much as available in this unit. Pt appears to be sleeping at this time, occ. calls out. Respirations even et unlabored, no signs discomfort. Will continue to monitor.
--- NOTE | 2016-06-20 03:45 | NUR ---
Pt woke up yelling for nurse. Upon entrance to room and asking pt what they need, pt starts getting hysterical and crying about "losing her 90-something year old Dad". Then proceeds to verbalize her worries for her son. States they (Dad and son) [place]. Expressed concern over her fate and her son's fate once her father is gone, thinks they will be and never see each other again. Pt talks of how very sick she is now. How sick her Dad is. Pt states she had a terrible dream, then retracts that statement by stating it's all true, she didn't dream any of it, she's very concerned. Attempts made by RN to redirect pt and reassure her. Pt takes several minutes to get herself under control. Will continue to monitor.
[2016-06-20] MEDS: LEVOFLOXACIN 500 MG TAB (LEVAQUIN) PO SCH (06:19)
[2016-06-20] MEDS: SODIUM CHLORIDE FLUSH 10 ML SYR IV PRN ×3 (06:20→09:17)
[2016-06-20] MEDS: HYDROmorphone 1 MG/ML (DILAUDID) SYRINGE IV PRN (06:20)
[2016-06-20] MEDS: LEVOTHYROXINE 100 MCG (LEVOTHROID) TABLET PO SCH (06:20)
[2016-06-20 06:22] LABS: BASOPHILS % (AUTO) 0 % (0-2); EOSINOPHILS # (AUTO) 0.1 10^3uL; EOSINOPHILS % (AUTO) 2 % (0-4); LYMPHOCYTES # (AUTO) 2.1 X10^3; MEAN CORPUSCULAR HEMOGLOBIN 27.6 PG (26.0-34.0); MEAN CORPUSCULAR VOLUME 87 FL (80-100); MEAN PLATELET VOLUME 10.6 FL (6.0-9.5); MONOCYTES # (AUTO) 0.7 X10^3; MONOCYTES % (AUTO) 8 % (3-11); NEUTROPHILS # (AUTO) 5.2 X10^3; NEUTROPHILS % (AUTO) 64 % (51-67); PLATELET COUNT 177 10^3uL (150-450); WHITE BLOOD COUNT 8.11 10^3uL (4.0-11.0)
[2016-06-20 06:26] LABS: MEAN CORPUSCULAR HGB CONC 31.6 g/dL (31.0-37.0)
[2016-06-20 06:36] LABS: ALBUMIN 2.8 g/dL (3.4-5.0); ANION GAP 6.5 MEQ/L (3-15); CALCULATED IONIZED CALCIUM 4.9 mg/dL (3.8-4.6); TOTAL PROTEIN 5.3 g/dL (6.4-8.5)
[2016-06-20 07:30] VITALS: BP 139/74
[2016-06-20] MEDS: INSULIN LISPRO 1 UNIT/0.01 ML (HUMALOG) DOSE SC SCH ×7 (07:30→21:00)
--- NOTE | 2016-06-20 07:30 | NUR ---
See ICU assessment - "I'm itching" - no visible rash on body - reports legs tender "I have varicose veins" - L hand swollen - QUAN carmonag soaked with sero sanginous
--- NOTE | 2016-06-20 08:05 | NUR ---
Up to chair for breakfast
[2016-06-20] MEDS: PANTOPRAZOLE 40 MG (PROTONIX) TAB PO SCH (08:43)
[2016-06-20] MEDS: NICOTINE 21 MG (NICODERM) PATCH TD SCH (08:44)
--- NOTE | 2016-06-20 08:55 | NUR ---
RIJ sterile drsg change - X3 lines: brown, blue and white flushed c 10 mL NS followed by 30 units heparin flush - lines clamped
[2016-06-20] MEDS: NICOTINE PATCH REMOVAL TOP SCH (08:59)
[2016-06-20] MEDS ORDERED: SODIUM CHLORIDE FLUSH 10 ML SYR IV SCH (09:00)
[2016-06-20] MEDS ORDERED: ENOXAPARIN 30 MG/0.3 ML (LOVENOX) SYR SC SCH (09:00)
[2016-06-20] MEDS: ALBUTEROL/IPRATROPIUM 3MG-0.5MG/3ML (DUONEB) NEB VIAL INH SCH ×3 (09:01→22:20)
[2016-06-20] MEDS: LIRAGLUTIDE 18 MG/3 ML SC SCH (09:09)
[2016-06-20 09:30] VITALS: BP 127/60
--- NOTE | 2016-06-20 09:30 | NUR ---
Back to bed - Shin and pericare provided
[2016-06-20] MEDS ORDERED: HYDROmorphone 1 MG/ML (DILAUDID) SYRINGE IV PRN (10:00)
--- NOTE | 2016-06-20 10:05 | NUR ---
Dr Carlos in room - father and son arrived - patient has been calling them frequently
[2016-06-20] MEDS ORDERED: PROMETHAZINE HCL INJ 12.5 MG in SODIUM CHLORIDE 25 ML IV PRN (10:10)
[2016-06-20] MEDS ORDERED: DEXTROSE ORAL GEL (GLUTOSE 40%) 15 GM TUBE PO PRN (10:10)
[2016-06-20] MEDS ORDERED: DEXTROSE 50% 25 GM/50 ML SYRINGE IV PRN (10:12)
[2016-06-20] MEDS ORDERED: GLUCAGON EMERGENCY 1 MG/KIT IM PRN (10:14)
[2016-06-20] MEDS ORDERED: ONDANSETRON 4 MG (ZOFRAN) ORAL DISSOLVE TAB PO PRN (10:19)
[2016-06-20] MEDS ORDERED: NITROGLYCERIN SUBLINGUAL 0.4 MG (NITROQUICK) TABLET SL PRN (10:19)
[2016-06-20] MEDS ORDERED: ONDANSETRON 2 MG/ML (Z0FRAN) 2 ML VIAL IV PRN (10:19)
[2016-06-20] MEDS ORDERED: POLYETHYLENE GLYCOL 17 GM (MIRALAX) PACKET PO PRN (10:20)
[2016-06-20] MEDS ORDERED: SODIUM CHLORIDE FLUSH 10 ML SYR IV PRN (10:21)
--- NOTE | 2016-06-20 10:25 | NUR ---
Kip MAN'octavio as per order
--- NOTE | 2016-06-20 10:35 | NUR ---
Accu check 195 --> reported to AD RN
--- NOTE | 2016-06-20 10:40 | NUR ---
Condition report to TINO RN
[2016-06-20] MEDS ORDERED: ALBUTEROL 0.083% NEB SOLUTION 2.5 MG/3 ML VIAL INH PRN (10:55)
--- NOTE | 2016-06-20 11:45 | NUR ---
Ambulated to room c O2 per nc @ 2L - pushed w/c - belongings to room - father and son in room
--- NOTE | 2016-06-20 12:30 | NUR ---
Patient is agitated because she doesn't think her son's girlfriend is good for him and she doesn't feel like her father is receiving enough care at home when she's not there. Attempted to reassure her but she was not reasonable at this time.
--- NOTE | 2016-06-20 13:30 | NUR ---
Refused most of her lunch- ate only a few bites. Tearful at times. States she must get out of this place to go home and care for her dad who doesn't get enough care when she's not home. Held lunch time dose of insulin.
[2016-06-20 16:00] VITALS: BP 174/95
--- NOTE | 2016-06-20 16:51 | NUR ---
BS are clear, NPC cough. Pt. had O2 off, Sat's 88%. O2 replaced after tx.. Pt. confused at this time.
--- NOTE | 2016-06-20 17:30 | NUR ---
Patient's mood has gone from tearful and yelling out to laughing out loud and happily discussing her favorite snacks.
[2016-06-20] MEDS ORDERED: ZIPRASIDONE 20 MG (GEODON) CAP PO SCH (21:00)
[2016-06-20] MEDS: MAGNESIUM HYDROXIDE 80MG/ML (MILK OF MAGNESIA) 30 ML UDC PO PRN (21:13)
[2016-06-20] MEDS: ATORVASTATIN 10 MG (LIPITOR) TABLET PO SCH (21:13)
[2016-06-20] MEDS: DOCUSATE SODIUM 100 MG (COLACE) CAP PO PRN (21:13)
--- NOTE | 2016-06-20 21:13 | NUR ---
Patient complaining of abdominal discomfort r/t not being able to have a bowel movement. Patient requesting PRN Colace and PRN milk of Magnesia. Both medications given at this time. See eMAR. Will continue to monitor patient.
[2016-06-20] MEDS: ACETAMINOPHEN 325 MG TAB (TYLENOL) PO PRN (21:14)
[2016-06-20] MEDS: DIVALPROEX EXT RELEASE 500 MG (DEPAKOTE ER) TAB PO SCH (21:14)
[2016-06-20] MEDS: INSULIN DETEMIR 1 UNIT/0.01 ML (LEVEMIR) DOSE SC SCH (21:16)
[2016-06-20] MEDS: BUDESONIDE NEBS 0.5 MG/2ML (PULMICORT) AMP INH SCH (22:20)
--- NOTE | 2016-06-20 22:23 | NUR ---
Pt found lying in bed, SPO2 94% on 2 l/min NC, HR 101, RR 16 and non labored with clear BS before Duoneb and Pulmicort via SVN.
[2016-06-21 00:23] VITALS: BP 147/80
[2016-06-21] MEDS: INSULIN LISPRO 1 UNIT/0.01 ML (HUMALOG) DOSE SC SCH ×7 (06:05→21:00)
[2016-06-21] MEDS: LEVOTHYROXINE 100 MCG (LEVOTHROID) TABLET PO SCH (06:07)
[2016-06-21] MEDS: LEVOFLOXACIN 500 MG TAB (LEVAQUIN) PO SCH (06:07)
[2016-06-21] MEDS: ALBUTEROL/IPRATROPIUM 3MG-0.5MG/3ML (DUONEB) NEB VIAL INH SCH ×3 (07:38→22:59)
[2016-06-21] MEDS: BUDESONIDE NEBS 0.5 MG/2ML (PULMICORT) AMP INH SCH ×2 (07:38→22:59)
[2016-06-21 07:40] VITALS: BP 137/62
[2016-06-21] MEDS: DOCUSATE SODIUM 100 MG (COLACE) CAP PO PRN (08:47)
[2016-06-21] MEDS: MAGNESIUM HYDROXIDE 80MG/ML (MILK OF MAGNESIA) 30 ML UDC PO PRN (08:47)
[2016-06-21] MEDS: PATCH REMOVAL TOP SCH (08:48)
[2016-06-21] MEDS: PANTOPRAZOLE 40 MG (PROTONIX) TAB PO SCH (08:48)
[2016-06-21] MEDS: ENOXAPARIN 30 MG/0.3 ML (LOVENOX) SYR SC SCH (08:48)
[2016-06-21] MEDS: NICOTINE 21 MG (NICODERM) PATCH TD SCH (08:48)
[2016-06-21] MEDS: LIRAGLUTIDE 18 MG/3 ML SC SCH ×2 (08:49→08:50)
--- NOTE | 2016-06-21 08:50 | NUR ---
Pt takes AM meds without difficulty. Requests Colace and MOM- given now for constipation. States her BMs are too hard. Miralax given as well. Pt asks this nurse to call her dad an ambulance and get him admitted to hospital- unsure why- states that her dad and son were arguing last night and wants to make sure her dad is ok. Helped pt call dad from her room phone to check on him- she is on phone with him now.
[2016-06-21] MEDS: SODIUM CHLORIDE FLUSH 10 ML SYR IV SCH (08:57)
[2016-06-21] MEDS: ZIPRASIDONE 20 MG (GEODON) CAP PO SCH ×2 (11:38→20:47)
--- NOTE | 2016-06-21 14:43 | NUR ---
MULTIDISCIPLINARY MTG/DR. FORD: Pt. admitted with respiratory failure attributed to COPD exacerbation. Initially thought Pt. had a PE but results were negative. Pt. has acute chronic abdominal pain. CT of her abdomen was negative. Pt. schizophrenia is worse today with Pt. hallucinating. Her geodone was increased due to this. Pt. oxygen is at 2L which is baseline for her. Pt. diet was advanced to medium diabetic. Discussed discharge needs for Pt. DANIEL contacted [facility] who reported they did visit with the family and explain the program. Pt. medicaid will pay for a portion of the program but Pt. will still have a $700/mo out of pocket expense. They tried to explained to the family that this is probably more beneficial for them because if Pt. were to go to LTC then the Pt. would only receive $66/mo. Pt. family never followed up with [facility] after their initial meeting. They are open to working with family again. DANIEL has also sent information to [facility] to review for acceptance to their facility. Will continue to work on discharge plans for Pt.
--- NOTE | 2016-06-21 15:23 | NUR ---
Pt is crying/tearful about missing her dad and son. Mary Hart RN sitting in room talking with patient.
[2016-06-21 16:10] VITALS: BP 148/75
--- NOTE | 2016-06-21 17:01 | NUR ---
UA sent to lab.
[2016-06-21 17:11] LABS: BILIRUBIN,URINE Negative (Negative); GLUCOSE, URINE (UA) Negative (Negative); LEUKOCYTE ESTERASE ,URINE Negative (Negative); PH,URINE 8.5 (5.0 - 8.0)
[2016-06-21 17:49] LABS: CLARITY,URINE Slightly Cloudy; COLOR,URINE Dark Yellow
[2016-06-21 17:56] LABS: AMORPHOUS SEDIMENT,UR 3+ /HPF; RBC,URINE 0-2 /HPF; URINE CENTRIFUGED VOLUME 12 mL
--- NOTE | 2016-06-21 18:37 | NUR ---
Pt sitting in chair, son and dad at bedside. has moments of crying and yelling, then moments where she is laughing and conversing with family.
--- NOTE | 2016-06-21 20:05 | NUR ---
Pt is resting in bed, complains of cramping in her sides, educated pt that she has taken some medication per the bowel protocol to help with her constipation. Pt reports that she never took any medication. Pt then closes her eyes, and allows this RN to assess her. Denies further needs at this time. IJ is patent, all 3 lumens are locked off, no redness, swelling, or s/s of infection noted at this time. Bed alarm, tab alarm, and pressure alarm are on and in place. Call light is within reach, will continue to monitor.
[2016-06-21] MEDS: ATORVASTATIN 10 MG (LIPITOR) TABLET PO SCH (20:47)
[2016-06-21] MEDS: DIVALPROEX EXT RELEASE 500 MG (DEPAKOTE ER) TAB PO SCH (20:47)
[2016-06-21] MEDS: INSULIN DETEMIR 1 UNIT/0.01 ML (LEVEMIR) DOSE SC SCH (20:48)
[2016-06-21] MEDS: ACETAMINOPHEN 325 MG TAB (TYLENOL) PO PRN (22:14)
[2016-06-21] MEDS: diphenhydrAMINE 25 MG (BENADRYL) TABLET PO PRN (22:14)
--- NOTE | 2016-06-21 22:15 | NUR ---
Pt complains of pain in legs and arms, rates 4/10 at this time, pt is also itching her arms. Gave 2 tabs Tylenol 325mg PO for pain, and Benadryl 25mg for itching. Will continue to monitor.
--- NOTE | 2016-06-21 23:01 | NUR ---
Pt found lying in bed on 2 l/min NC, SPO2 97%, HR 87, RR 16 and non labored with clear BS before and after Duoneb and Pulmicort via SVN.
[2016-06-22 00:15] VITALS: BP 138/63
--- NOTE | 2016-06-22 04:39 | NUR ---
Pt has been resting in bed asleep since midnight. Bed alarm, tab alarm, and pressure pad are on and in place. Call light is in reach, will continue to monitor.
[2016-06-22] MEDS: LEVOFLOXACIN 500 MG TAB (LEVAQUIN) PO SCH (05:54)
[2016-06-22] MEDS: LEVOTHYROXINE 100 MCG (LEVOTHROID) TABLET PO SCH (05:54)
[2016-06-22] MEDS: ACETAMINOPHEN 325 MG TAB (TYLENOL) PO PRN ×3 (06:24→20:43)
[2016-06-22] MEDS: INSULIN LISPRO 1 UNIT/0.01 ML (HUMALOG) DOSE SC SCH ×7 (07:06→21:00)
[2016-06-22] MEDS: ALBUTEROL/IPRATROPIUM 3MG-0.5MG/3ML (DUONEB) NEB VIAL INH SCH ×3 (07:35→23:44)
[2016-06-22] MEDS: BUDESONIDE NEBS 0.5 MG/2ML (PULMICORT) AMP INH SCH ×2 (07:35→23:43)
[2016-06-22 07:36] VITALS: BP 123/67
--- NOTE | 2016-06-22 07:51 | NUR ---
Pt resting in chair. Ketty RT in room for scheduled breathing treatment- sleeps through treatment. Remains on 2L nc. Breakfast tray provided- pt pleasant, thankful to staff. Triple lumen RIJ in place. This nurse sat next to patient on bed during assessment, pt talks calm, slow, at times falls asleep during conversation- arouses easily to name- states "I just have a bad headache, I'm not sleeping." Tylenol previously given at 0624. Call light within reach, will cont to monitor patient.
[2016-06-22] MEDS: ENOXAPARIN 30 MG/0.3 ML (LOVENOX) SYR SC SCH (08:08)
[2016-06-22] MEDS: NICOTINE 21 MG (NICODERM) PATCH TD SCH (08:08)
[2016-06-22] MEDS: PANTOPRAZOLE 40 MG (PROTONIX) TAB PO SCH (08:08)
[2016-06-22] MEDS: ZIPRASIDONE 20 MG (GEODON) CAP PO SCH (08:09)
[2016-06-22] MEDS: LIRAGLUTIDE 18 MG/3 ML SC SCH (08:09)
[2016-06-22] MEDS: PATCH REMOVAL TOP SCH (08:10)
[2016-06-22] MEDS: SODIUM CHLORIDE FLUSH 10 ML SYR IV SCH (08:10)
[2016-06-22] MEDS ORDERED: IBUPROFEN 600 MG (MOTRIN) TAB PO PRN (10:55)
[2016-06-22] MEDS: MAGNESIUM HYDROXIDE 80MG/ML (MILK OF MAGNESIA) 30 ML UDC PO PRN ×2 (10:58→15:08)
[2016-06-22] MEDS: DOCUSATE SODIUM 100 MG (COLACE) CAP PO PRN ×2 (10:58→15:08)
--- NOTE | 2016-06-22 11:03 | NUR ---
Ibuprofen 600mg PO given for c/o headache rated 7/10 on face scale. Son and dad at bedside-brought sugar free candies as well as cheese and cracker packets.
--- NOTE | 2016-06-22 13:39 | NUR ---
[facility] are unable to accept Pt. at this time. They have had Pt. before and are aware of her noncompliance. As a facility they decided they wouldn't be able to meet her needs. SW reached out to Jesika at [facility]. She agreed to reach out to Pt. father Roby and discuss their program with him again. Addis or Jesika plan to come visit with Pt. this afternoon. Addendum: 06/22/16 at 1356 by Alma Rosa CARRANZA Jesika, [facility], contacted Pt. father, Roby, to schedule a time to visit regarding their program. Jesika reports Roby was unsure about anything and she was unable to get him to commit to a time to meet. Jesika still plans to come visit Pt. today. Jesika said she is willing to come visit the family on Saturday if hospital staff notifies her when Roby is visiting. Jesika [phone]
--- NOTE | 2016-06-22 14:47 | NUR ---
Pt on phone with dad-yelling at him to come to hospital at 4pm for meeting with Cassy Soto.
[2016-06-22 14:48] VITALS: BP 108/81
--- NOTE | 2016-06-22 17:20 | NUR ---
BS are clear, O2 @ 2L nc, 95%. Mariam. tx's well, no cough.
[2016-06-22] MEDS: ZIPRASIDONE 40 MG (GEODON) CAP PO SCH (17:26)
--- NOTE | 2016-06-22 19:25 | NUR ---
Pt is resting in recliner, complains of diarrhea, educated pt that she has taken some medication per the bowel protocol to help with her constipation. Pt proceeds to call family and tell them that she has diarrhea from all the stress. Denies further needs at this time. IJ is patent, all 3 lumens are locked off, no redness, swelling, or s/s of infection noted at this time. Bed alarm, tab alarm, and pressure alarm are on and in place. Call light is within reach, will continue to monitor.
[2016-06-22] MEDS: ATORVASTATIN 10 MG (LIPITOR) TABLET PO SCH (20:43)
[2016-06-22] MEDS: diphenhydrAMINE 25 MG (BENADRYL) TABLET PO PRN (20:43)
[2016-06-22] MEDS: INSULIN DETEMIR 1 UNIT/0.01 ML (LEVEMIR) DOSE SC SCH (20:43)
[2016-06-22] MEDS: DIVALPROEX EXT RELEASE 500 MG (DEPAKOTE ER) TAB PO SCH (20:43)
[2016-06-23] VITALS: BP 142/76
--- NOTE | 2016-06-23 03:58 | NUR ---
Pt is resting in bed asleep, does not appear in pain or discomfort at this time, alarms are on and in place, call light is in reach, will continue to monitor.
[2016-06-23] MEDS: LEVOTHYROXINE 100 MCG (LEVOTHROID) TABLET PO SCH (05:53)
[2016-06-23] MEDS: IBUPROFEN 600 MG (MOTRIN) TAB PO PRN ×2 (06:46→12:28)
[2016-06-23] MEDS: INSULIN LISPRO 1 UNIT/0.01 ML (HUMALOG) DOSE SC SCH ×4 (07:30→12:24)
--- NOTE | 2016-06-23 07:30 | NUR ---
PT UP IN CHAIR, EYES CLOSED, RESP REG/NON-LABORED. TAB ALARM ON.
[2016-06-23 07:51] VITALS: BP 129/73
[2016-06-23] MEDS: ZIPRASIDONE 40 MG (GEODON) CAP PO SCH (08:08)
[2016-06-23] MEDS: ENOXAPARIN 30 MG/0.3 ML (LOVENOX) SYR SC SCH (08:27)
[2016-06-23] MEDS: PANTOPRAZOLE 40 MG (PROTONIX) TAB PO SCH (08:27)
[2016-06-23] MEDS: NICOTINE 21 MG (NICODERM) PATCH TD SCH (08:28)
[2016-06-23] MEDS: LIRAGLUTIDE 18 MG/3 ML SC SCH (08:39)
[2016-06-23] MEDS: BUDESONIDE NEBS 0.5 MG/2ML (PULMICORT) AMP INH SCH (08:45)
[2016-06-23] MEDS: ALBUTEROL/IPRATROPIUM 3MG-0.5MG/3ML (DUONEB) NEB VIAL INH SCH ×2 (08:45→16:10)
[2016-06-23] MEDS: PATCH REMOVAL TOP SCH (08:59)
[2016-06-23] MEDS: SODIUM CHLORIDE FLUSH 10 ML SYR IV SCH (09:00)
--- NOTE | 2016-06-23 09:45 | NUR ---
THIS NURSE DISCUSSING HOME MEDS WITH PT, SHE BEGINS TO YELL AND STATE SHE WILL NOT TAKE ANY MEDICATIONS FROM DR. PARAG MARADIAGA, THIS NURSE EXPLAINED ORDERED MEDS ARE FROM DR. FORD, PT CONT. TO YELL AND VERBALIZE C/O DR. MARADIAGA.
[2016-06-23] MEDS: ACETAMINOPHEN 325 MG TAB (TYLENOL) PO PRN (12:22)
--- NOTE | 2016-06-23 15:20 | NUR ---
TRIPLE-LUMEN CENTRAL LINE TO RIGHT SIDE OF NECK ANGIOCATH DC'D, 5 MIN PRESSURE APPLIED, NO ACTIVE DRAINAGE OR BLEEDING NOTED, NO REDNESS/EDEMA NOTED, 2X2 GAUZE X5 APPLIED & SECURED WITH TEGADERM. PT INST TO LEAVE THIS DRESSING ON UNTIL HOME HEALTH NURSE COMES TOMORROW. PT VERBALIZES UNDERSTANDNG.
[2016-06-23 15:35] VITALS: BP 133/73
--- NOTE | 2016-06-23 17:00 | NUR ---
YURI MARSHALL AND THIS NURSE GOING THROUGH PT'S HOME MEDS TO ENSURE SHE HAS THE MEDICATIONS SHE WILL NEED AT HOME, PHARMACIST MOOKIE ALSO ABLE TO ASSIST. PT'S OTHER MEDS THAT ARE NOT BEING TAKEN HOME AT THIS TIME WERE PUT IN LOCKED MED ROOM.
--- NOTE | 2016-06-23 17:00 | NUR ---
DISCHARGE INSTRUCTIONS PROVIDED TO PT VERBALLY & PER PRINTED MATERIALS, MEDS DISCUSSED AT LENGTH WITH NOTES WRITTEN PER PT'S REQUEST ON MED LIST. PT VERBALIZES UNDERSTANDING.
--- NOTE | 2016-06-23 17:30 | NUR ---
DRESSING REMAINS INTACT TO PT'S RIGHT NECK, IT IS C/D/I. PT'S FATHER IS HERE, PT DISM VIA W/C IN STABLE CONDITION, ACCOMP. BY FERNANDO HEIN.
--- NOTE | 2016-06-25 10:02 | NUR ---
Followed up with Cassy WAGNER and informed them Pt. was discharged on Saturday and the family would like for BERNARD to follow up with them at home. Jesika will contact the family this morning and plans to visit with the family at 11am today.
== END 2016-06-23 17:30 | disposition home health service (06) | DRG 189 ==
LOC: ED 16:38 → ICU 22:06 → MED/SURG 06-20 10:55
PROVIDERS: ADMIT Emergency Medicine; ATTEND Emergency Medicine
PROC: 02HV33Z Insertion of Infusion Device into Superior Vena Cava, Percutaneous Approach (ICD-10-PCS; principal; 2016-06-19)
DX: J96.22 Acute and chronic respiratory failure with hypercapnia (principal); G93.41 Metabolic encephalopathy; J44.1 Chronic obstructive pulmonary disease with (acute) exacerbation; J90 Pleural effusion, not elsewhere classified; I31.3 Pericardial effusion (noninflammatory); E11.65 Type 2 diabetes mellitus with hyperglycemia; G47.33 Obstructive sleep apnea (adult) (pediatric); J96.21 Acute and chronic respiratory failure with hypoxia; R10.84 Generalized abdominal pain; F25.9 Schizoaffective disorder, unspecified; I10 Essential (primary) hypertension; F17.200 Nicotine dependence, unspecified, uncomplicated
CPT/HCPCS: 36415; 36569; 36600; 51702; 71010; 74022; 74178; 78582; 80048; 80053; 80307; 80320; 80329; 81003; 81015; 82009; 82550; 82553; 82803; 82947; 83605; 83690; 83735; 83880; 84110; 84120; 84443; 84484; 85025; 85610; 86140; 87088; 87147; 93005; 93010; 93306; 94640; 94660; 94760; 96361; 96372; 96374; 96375; 99285

== ENCOUNTER 2016-07-08 20:21 | Emergency (ER) | payer MEDICARE ==
[~2016-07-08] VITALS: Ht 165.1 cm; Wt 71200.0 kg
[2016-07-08 21:31] LABS: BASOPHILS % (AUTO) 1 % (0-2); EOSINOPHILS # (AUTO) 0.2 10^3uL; EOSINOPHILS % (AUTO) 2 % (0-4); LYMPHOCYTES # (AUTO) 2.9 X10^3; MEAN CORPUSCULAR HEMOGLOBIN 28.1 PG (26.0-34.0); MEAN CORPUSCULAR HGB CONC 32.4 g/dL (31.0-37.0); MEAN CORPUSCULAR VOLUME 87 FL (80-100); MEAN PLATELET VOLUME 12.2 FL (6.0-9.5); MONOCYTES # (AUTO) 0.6 X10^3; MONOCYTES % (AUTO) 7 % (3-11); NEUTROPHILS # (AUTO) 4.9 X10^3; NEUTROPHILS % (AUTO) 56 % (51-67); PLATELET COUNT 164 10^3uL (150-450); WHITE BLOOD COUNT 8.72 10^3uL (4.0-11.0)
[2016-07-08 21:34] LABS: BILIRUBIN,URINE Negative (Negative); CLARITY,URINE Clear; COLOR,URINE Yellow; GLUCOSE, URINE (UA) 2+ (Negative); LEUKOCYTE ESTERASE ,URINE Negative (Negative); UROBILINOGEN,URINE 0.2 mg/dL (0.2-1.0)
[2016-07-08 21:40] LABS: RBC,URINE 0-2 /HPF; URINE CENTRIFUGED VOLUME 12 mL
[2016-07-08 21:41] LABS: ALBUMIN 3.9 g/dL (3.4-5.0); CALCULATED IONIZED CALCIUM 4.4 mg/dL (3.8-4.6); TOTAL PROTEIN 6.9 g/dL (6.4-8.5)
[2016-07-08 22:38] VITALS: BP 177/86
== END 2016-07-08 22:39 | disposition home or self-care (01) ==
LOC: ED 20:22
DX: R10.84 Generalized abdominal pain (principal)
CPT/HCPCS: 36415; 80053; 81003; 81015; 83690; 85025; 99282

== ENCOUNTER 2016-07-15 22:36 | Emergency (ER) | payer MEDICARE ==
[~2016-07-15] VITALS: Ht 165.1 cm; Wt 70.0 kg
[2016-07-15] MEDS ORDERED: morphine INJ 4 MG/ML 1 ML SYRINGE IM PRN (22:55)
[2016-07-15] MEDS ORDERED: PROMETHAZINE 25 MG/ML (PHENERGAN) 1 ML VIAL IM ONE (22:55)
--- NOTE | 2016-07-15 23:47 | NUR ---
WHILE PT WAS RESTING, SATS DECREASED TO 87-88%. REPOSITIONED PT WITH HOB ELEVATED MORE. PT CONTINUES TO DESAT- O2 VIA N/C APPLIED AT 2 LITERS- PT NOW SATING 96%.
[2016-07-16 00:37] VITALS: BP 136/61
--- NOTE | 2016-07-16 00:42 | NUR ---
PT ASLEEP IN ROOM- AT TIME OF DC, NURSE AROUSED PT AND GAVE DISCHARGE INSTRUCTIONS. PT STATED THAT PAIN WAS STILL THERE. PT ASKED IF SHE WOULD BE GIVEN A SCRIPT FOR PAIN. PT INFORMED TO TAKE TYLEOL PER MD RECOMMEDATION. PT STATED THAT SHE WAS GOING TO SEE HER PMD TOMORROW.
--- NOTE | 2016-07-16 07:58 | Diagnostic Imaging Report ---
INDICATION: Pain. FINDINGS: There is no fracture or dislocation. Vascular calcifications chronic. The bowel gas pattern unremarkable. No acute pathology. IMPRESSION: No acute appearing abnormality unchanged from study of June 2016. Dictated by: Dictated on workstation # [id number]
== END 2016-07-16 00:40 | disposition home or self-care (01) ==
LOC: ED 22:39
DX: G89.11 Acute pain due to trauma (principal); R51 Headache; S50.311A Abrasion of right elbow, initial encounter; S39.92XA Unspecified injury of lower back, initial encounter; W01.0XXA Fall on same level from slipping, tripping and stumbling without subsequent striking against object, initial encounter; Z91.81 History of falling; Y92.009 Unspecified place in unspecified non-institutional (private) residence as the place of occurrence of the external cause; K43.2 Incisional hernia without obstruction or gangrene; F17.210 Nicotine dependence, cigarettes, uncomplicated
CPT/HCPCS: 72170; 96372; 99284; J2270; J2550; 99282

== ENCOUNTER 2016-07-28 19:13 | Emergency (ER) | payer MEDICARE ==
[~2016-07-28] VITALS: Ht 165.1 cm; Wt 96.6 kg
[2016-07-28 19:20] VITALS: BP 170/80
[2016-07-28] MEDS: LIDOCAINE 1% (XYLOCAINE) 20 ML VIAL INJ ONE (20:07)
[2016-07-28] MEDS ORDERED: CEPH500T PO (20:23)
[2016-07-28] MEDS ORDERED: HYDR-3702 PO (20:23)
[2016-07-28] MEDS: ED- CEPHALEXIN 500 MG (KEFLEX) 6 CAPSULES/BTL PO ONE (20:31)
[2016-07-28] MEDS: ED- HYDROcodone/ACETAMINOPHEN 5MG/325MG (NORCO) 6 TABLETS/BTL PO ONE (20:31)
== END 2016-07-28 20:41 | disposition home or self-care (01) ==
LOC: ED 19:15
DX: L02.612 Cutaneous abscess of left foot (principal)
CPT/HCPCS: 99283; A9270; 10060

== ENCOUNTER 2016-08-09 18:18 | Inpatient (IN) | payer MEDICARE ==
[~2016-08-09] VITALS: Ht 165.1 cm; Wt 75.6 kg
[~2016-08-09 18:18] MED LIST changes: -ALBU8.5H6 IH; -CYAN10004 IM; -FLUT1DIS INH; -IBP800T PO; -INSU100I14 SQ; -MIRA50TA PO; -NEOM7.5D3 OS; -RAME8T PO
[2016-08-09] MEDS ORDERED: SODIUM CHLORIDE 250 ML IV PRN (19:00)
[2016-08-09] MEDS ORDERED: SODIUM CHLORIDE FLUSH 3 ML SYR IV PRN (19:00)
--- NOTE | 2016-08-09 19:40 | NUR ---
NEB TREATMENT BY RT. NO IV SITE AFTER 3 UNSUCCESSFUL ATTEMPTS BY THIS NURSE AND TWO BY EMS - DR. MATHIAS NOTIFIED. ED CHARGE NURSE NOTIFIED AND WILL LOOK FOR IV SITE.
[2016-08-09 19:56] LABS: BASOPHILS % (AUTO) 0 % (0-2); EOSINOPHILS # (AUTO) 0.1 10^3uL; EOSINOPHILS % (AUTO) 1 % (0-4); LYMPHOCYTES # (AUTO) 1.4 X10^3; MEAN CORPUSCULAR HEMOGLOBIN 28.9 PG (26.0-34.0); MEAN CORPUSCULAR HGB CONC 31.8 g/dL (31.0-37.0); MEAN CORPUSCULAR VOLUME 91 FL (80-100); MEAN PLATELET VOLUME 11.3 FL (6.0-9.5); MONOCYTES # (AUTO) 0.4 X10^3; MONOCYTES % (AUTO) 4 % (3-11); NEUTROPHILS # (AUTO) 7.6 X10^3; NEUTROPHILS % (AUTO) 80 % (51-67); PLATELET COUNT 176 10^3uL (150-450); WHITE BLOOD COUNT 9.56 10^3uL (4.0-11.0)
[2016-08-09 20:09] LABS: ALBUMIN 3.7 g/dL (3.4-5.0); ALKALINE PHOSPHATASE 111 U/L (38-126); ANION GAP 16.4 MEQ/L (3-15); BUN/CREATININE RATIO 32 (10-20); CALCULATED IONIZED CALCIUM 4.7 mg/dL (3.8-4.6); CREATINE KINASE 84 U/L (30-135); MAGNESIUM* 1.5 mg/dL (1.6-2.3); TOTAL PROTEIN 6.4 g/dL (6.4-8.5)
[2016-08-09] MEDS ORDERED: ALBUTEROL 0.083% NEB SOLUTION 2.5 MG/3 ML VIAL INH ONE ×2 (20:25→21:10)
--- NOTE | 2016-08-09 20:37 | NUR ---
Farheen LUCAS RN NOW WITH PATIENT.
[2016-08-09] MEDS ORDERED: CALCIUM GLUCONATE 1,000 MG in D5W (IVPB) 50 ML IV ONE (21:40)
--- NOTE | 2016-08-09 21:45 | Diagnostic Imaging Report ---
INDICATION: Weakness. TECHNIQUE: Single view chest 8:15 PM. CORRELATION STUDY: 06/19/2016 FINDINGS: The lungs are hyperinflated with changes of COPD. No definitive infiltrate. Heart size, mediastinum and vasculature are within normal limits. Motion artifact limits assessment. IMPRESSION: Negative for acute abnormality of the chest. Dictated by: Dictated on workstation # [id number]
--- NOTE | 2016-08-09 22:08 | Diagnostic Imaging Report ---
PROCEDURE: CT head without contrast. TECHNIQUE: Multiple contiguous axial images were obtained through the brain without the use of intravenous contrast. INDICATION: Weakness. CORRELATION STUDY: 09/06/2015 FINDINGS: The ventricles and sulci demonstrate generalized atrophic changes. Mild scattered periventricular changes likely owing to chronic small vessel ischemic disease. Definitive decreased attenuation to suggest edema is not present. No intracranial hemorrhage. There is again noted very slight smoothly marginated expanse of the sella filled with low density compatible with an empty sella. Intracranial vascular calcifications present. The bony calvarium intact. Paranasal sinuses and mastoid air cells unremarkable. IMPRESSION: 1. Stable noncontrast CT imaging of the head demonstrates no acute intracranial abnormality. Generalized atrophic changes with changes likely of small vessel ischemic disease. Dictated by: Dictated on workstation # [id number]
[2016-08-09] MEDS ORDERED: DEXTROSE IV ONE (22:45)
[2016-08-09] MEDS ORDERED: INSULIN REGULAR 1 UNIT/0.01 ML DOSE IV ONE (22:45)
--- NOTE | 2016-08-09 23:01 | NUR ---
ALTERATION WORKROOM SUPERVISOR NOTIFIED THAT MED NEEDED FROM PHARMACY.
[2016-08-09 23:27] LABS: BILIRUBIN,URINE Negative (Negative); CLARITY,URINE Clear; COLOR,URINE Yellow; GLUCOSE, URINE (UA) Trace (Negative); LEUKOCYTE ESTERASE ,URINE Negative (Negative); PH,URINE 5.5 (5.0 - 8.0); UROBILINOGEN,URINE 0.2 mg/dL (0.2-1.0)
--- NOTE | 2016-08-09 23:27 | NUR ---
PT'S FATHER AND SON REPORT PT HAS HAD INTERMITTANT COUGHT AT HOME
--- NOTE | 2016-08-09 23:30 | NUR ---
400 ML YELLOW URINE WITH STRONG ODOR, EMPTIED FROM CATH DRAINAGE BAG.
[2016-08-09 23:55] LABS: URINE CENTRIFUGED VOLUME 12 mL
[2016-08-09 23:58] LABS: RBC,URINE 0-2 /HPF
[2016-08-09 23:59] LABS: AMORPHOUS SEDIMENT,UR 1+ /HPF; AMPHETAMINE SCREEN, URINE Negative (Negative); CANNABINOID SCREEN, URINE Negative (Negative); METHAMPHETAMINE SCREEN URINE S NEGATIVE (NEGATIVE); OPIATE SCREEN URINE Negative (Negative); PROPOXYPHENE STAT NEGATIVE (NEGATIVE)
[2016-08-10] VITALS: BP 103/78
[2016-08-10] MEDS ORDERED: DEXTROSE ORAL GEL (GLUTOSE 40%) 15 GM TUBE PO PRN ×2 (01:00)
[2016-08-10] MEDS ORDERED: ALBUTEROL 0.083% NEB SOLUTION 2.5 MG/3 ML VIAL INH PRN (01:00)
[2016-08-10] MEDS ORDERED: GLUCAGON EMERGENCY 1 MG/KIT IM PRN ×2 (01:00)
[2016-08-10] MEDS ORDERED: LEVOFLOXACIN 500 MG/100 ML IV 100 ML IV ONE (01:00)
[2016-08-10] MEDS ORDERED: DEXTROSE 50% 25 GM/50 ML SYRINGE IV PRN ×2 (01:00)
[2016-08-10] MEDS ORDERED: ONDANSETRON 2 MG/ML (Z0FRAN) 2 ML VIAL IV PRN (01:00)
--- NOTE | 2016-08-10 01:03 | NUR ---
ABG HAS BEEN DRAWN BY RT. LAB NOW IN ROOM TO GET BLOOD SPECIMEN FOR REPEAT POTASSIUM LEVEL.
--- NOTE | 2016-08-10 01:33 | NUR ---
FOREST PATHOLOGY PROFESSOR, Barby SUMMERS RN WILL FINISH COPYING CHART AND TRANSPORT PT TO ICU.
[2016-08-10 02:15] VITALS: BP 131/62
--- NOTE | 2016-08-10 02:15 | NUR ---
Patient arrives via cart, admitted to room 343.
[2016-08-10] MEDS ORDERED: SODIUM BICARBONATE 8.4% 50 MEQ/50 ML SYRINGE IV ONE (02:45)
[2016-08-10] MEDS ORDERED: SODIUM BICARB IV SCH (02:45)
[2016-08-10] MEDS ORDERED: SOD CHLORIDE 0.45% IV SCH (02:45)
[2016-08-10] MEDS ORDERED: SODIUM BICARBONATE 8.4% 50 MEQ/50 ML SYRINGE ONE (02:45)
--- NOTE | 2016-08-10 02:45 | NUR ---
Accu check 162
[2016-08-10] MEDS ORDERED: 0.45% SOD CHLORIDE (1/2 NS) 1,000 ML IV ONE (02:54)
[2016-08-10 03:00] VITALS: BP 93/50
[2016-08-10] MEDS: SOD CHLORIDE 0.45% IV SCH ×2 (03:13→19:04)
[2016-08-10] MEDS: SODIUM BICARB IV SCH ×2 (03:13→19:04)
[2016-08-10] MEDS: SODIUM CHLORIDE FLUSH 10 ML SYR IV PRN ×2 (03:14→06:07)
--- NOTE | 2016-08-10 03:15 | History and Physical (E) ---
History & Physical Chief complaint: Shortness of breath History of present illness: This is a 66-year-old female that I actually admitted approximately 2 months ago. The patient has a history of COPD. The patient is oxygen dependent. The patient was found altered without her oxygen with O2 saturations in the mid 50s. EMS transported to the emergency department where she subsequently was evaluated and placed on oxygen. The patients workup in the emergency department ultimately revealed the patient hypercapnic respiratory failure. The patient was started on BiPAP. Chest x-ray was unrevealing for acute infiltrate. Patient is found to be hyperkalemia which is confirmed on redraw. The patient was treated with calcium gluconate, insulin, nebulized treatments. At this time the patient is to be admitted to the ICU for COPD exacerbation. Past medical history: Type 2 diabetes mellitus, anxiety depression, schizophrenia, and COPD Past surgical history: Herniorrhaphy, total abdominal hysterectomy bilateral salpingo-oophorectomy Medications: Tylenol, albuterol, DuoNeb, atorvastatin, Depakote, Colace, Golden, Levemir, Synthroid, Geodon, inhaled steroids Allergies: See listed allergies to medication reconciliation Social history: Continues to smoke 1 pack per day, no alcohol, no drugs, lives with her grandson Family history: Unknown Review systems: Patient has BiPAP on currently somewhat difficult to communicate. What is determined as the patients breathing somewhat worsened over the last 24 hours. No fevers chills maybe some sweats. Patients profoundly short of breath. Which is chronic with acute worsening today. Patient has an occasional cough which is productive of a dark sputum. Patient denies chest pain. Patient denies nausea or vomiting. No change in bowel movements. No focal neurological complaints. A 10 point review systems is otherwise negative except for described above Physical examination: Vital signs: Temperature 98.6, pulse 112, respiratory 15, blood pressure 107/78 , sats are 95% on 2 L Well-developed well-nourished white female in mild respiratory distress Sclera nonicteric, extraocular muscles are intact Neck is obese, no restrictions on range of motion Lungs are very diminished with end-expiratory wheezes Heart is distant heart tones but regular rate and rhythm Abdomen is obese, bowel sounds present, nontender per nursing personnel Extremities show trace edema Neurologically no focal deficits Lab: Sodium 140, potassium 5.8 with repeat 6.4 with subsequent 5.5, serum bicarbonate 34, PO2 32, creatinine 1, glucose is 276, INR is 1, white count is 9.6, hemoglobin 15.6, platelet count 276,000, 80% segs, urine drug screen is negative, blood: As noted, Tylenol salicylate are negative, urinalysis is normal , Chest x-ray shows no acute cardiopulmonary process, COPD changes CT head: No acute process Impression/plan 1. Acute hypercapnic respiratory failure present on admission: This is secondary to COPD exacerbation: IV fluids: BiPAP: Repeat ABG in the morning, IV steroids, 2. Type 2 diabetes mellitus chronic present on admission: With steroids will need to aggressively treat, we will adjust as indicated 3. Hyperkalemia acute present on admission: Secondary to metabolic acidosis, no potassium supplementation can be seen, patient received calcium gluconate, D50 with insulin, in the emergency department at this time will recheck potassium at least in 4 hours, start bicarbonate drip, Kayexalate. 4. Anxiety depression chronic present on admission with a history of schizoaffective disorder: Patients currently on Depakote which I suspect is admitted stabilizer, additionally patient on Geodon, currently well balance, denies auditory or visual hallucination, denies desire to harm herself 5. DVT prophylaxis: SCD, heparin This patient continues to challenge her resources. Patient was found without her oxygen. Her psychiatric disease did not help her. Well aggressively to her lungs up. Allergies/Home Medications Allergies: Coded Allergies: Iodinated Contrast Media - Oral and (Verified Allergy, Unknown, 08/09/16) Macrolide Antibiotics (Verified Allergy, Unknown, 08/09/16) Sulfa (Sulfonamide Antibiotics) (Verified Allergy, Unknown, 08/09/16) aspirin (Verified Allergy, Unknown, 08/09/16) barium iodide (Verified Allergy, Unknown, 08/09/16) doxycycline (Verified Allergy, Unknown, 08/09/16) haloperidol (Verified Allergy, Unknown, 08/09/16) iodine (Verified Allergy, Unknown, 08/09/16) strawberry (Verified Allergy, Unknown, 08/09/16) sumatriptan (Verified Allergy, Unknown, TACHYCARDIA, PALPITATIONS, HTN, DIAPHORESIS, HEADACHE, 08/09/16) telithromycin (Verified Allergy, Unknown, 08/09/16) ketolides Uncoded Allergies: KETOLIDES (Allergy, Unknown, 07/22/15) MYACINS (Allergy, Unknown, 07/22/15) Reported Home Medications Scheduled Albuterol/Ipratropium (Duoneb 3mg-0.5mg/3ml) 3 ML INH [id number] Atorvastatin Calcium (Atorvastatin Calcium) 10 MG PO HS Beclomethasone Dipropionate (Qvar) 80 MCG IH BID (Reported) Cephalexin (Cephalexin) 500 MG PO QID Divalproex Sodium (Divalproex Sodium ER) 500 MG PO HS Docusate Sodium (Stool Softener) 100 MG PO TID (Reported) Insulin Detemir (Levemir) 23 UNIT SC HS (Reported) Levothyroxine Sodium (Levothyroxine Sodium) 100 MCG PO DAILY@0600 (Reported) Melatonin/Pyridoxine HCl (B6) (Melatonin 3 mg Tablet) 2 EACH PO HS (Reported) Oxybutynin Chloride (Oxybutynin Chloride ER) 10 MG PO DAILY (Reported) Ziprasidone (Geodon) 40 MG PO BID (Reported) Scheduled PRN Acetaminophen (Acetaminophen) 650 MG PO Q6H PRN PRN PAIN Albuterol Sulfate (Proventil 0.083%) 2.5 MG INH Q4H PRN PRN DYSPNEA Diphenhydramine HCl (Benadryl) 25 MG PO Q6H PRN PRN ITCHING Hydrocodone/Acetaminophen (Golden 5mg/325mg) 1 TAB PO every 4 hours PRN PRN PAIN Ibuprofen (Ibuprofen) 600 MG PO TID PRN PRN PAIN Magnesium Hydroxide (Milk of Magnesia 400mg/5ml) 30 ML PO QID PRN PRN CONSTIPATION Polyethylene Glycol 3350 (Miralax) 17 GM PO DAILY PRN PRN CONSTIPATION Copies to: End of Report . PARAG HALL MD August 10, 2016 03:15
--- NOTE | 2016-08-10 03:30 | NUR ---
Pt placed on BiPAP 15/ R14 40% per charted settings in ER prior abg 7.28/70/59/32.9/6/85% on 3L/NC.. appears sleepy though arouses to stimuli and verbal communication... BS decreased throughout.. family at bedside.. transferred to ICU 0220 placed back on BiPAP per charted settings no complications will continue to monitor...
[2016-08-10 04:00] VITALS: BP 89/51
[2016-08-10] MEDS: ALBUTEROL/IPRATROPIUM 3MG-0.5MG/3ML (DUONEB) NEB VIAL INH SCH ×4 (04:41→23:20)
[2016-08-10] MEDS ORDERED: INSULIN LISPRO 1 UNIT/0.01 ML (HUMALOG) DOSE SC ONE (05:55)
[2016-08-10] MEDS: methylPREDNISolone 125 MG (Solu-MEDROL) VIAL IV SCH ×3 (06:08→18:16)
[2016-08-10] MEDS: INSULIN LISPRO 1 UNIT/0.01 ML (HUMALOG) DOSE SC SCH ×4 (06:08→21:21)
[2016-08-10 06:09] LABS: BASOPHILS % (AUTO) 0 % (0-2); EOSINOPHILS # (AUTO) 0.1 10^3uL; EOSINOPHILS % (AUTO) 1 % (0-4); LYMPHOCYTES # (AUTO) 2.3 X10^3; MEAN CORPUSCULAR HEMOGLOBIN 28.4 PG (26.0-34.0); MEAN CORPUSCULAR VOLUME 90 FL (80-100); MEAN PLATELET VOLUME 11.2 FL (6.0-9.5); MONOCYTES # (AUTO) 0.6 X10^3; MONOCYTES % (AUTO) 8 % (3-11); NEUTROPHILS # (AUTO) 4.8 X10^3; NEUTROPHILS % (AUTO) 61 % (51-67); PLATELET COUNT 184 10^3uL (150-450)
[2016-08-10 06:21] LABS: MEAN CORPUSCULAR HGB CONC 31.5 g/dL (31.0-37.0)
[2016-08-10 06:42] LABS: ALBUMIN 3.1 g/dL (3.4-5.0); CALCULATED IONIZED CALCIUM 4.9 mg/dL (3.8-4.6); TOTAL PROTEIN 5.6 g/dL (6.4-8.5)
--- NOTE | 2016-08-10 07:00 | NUR ---
Rested in bed with eyes closed, awakens tearfully with cares, calms with reassuring, does not like Bipap but leaves on as she is very drowsy. Coughed up thick yellow sputum while performing oral cares, per lab unable to use specimen.
[2016-08-10 07:36] LABS: ABG OXYGEN SATURATION 85 % (95-98); ABG PCO2 70 mmHg (35-45); ABG PH 7.28 (7.35-7.45); ABG PO2 59 mmHg (80-105)
[2016-08-10 07:37] LABS: ARTERIAL BLOOD GAS DELIVERY Nasal Cannula
--- NOTE | 2016-08-10 07:42 | NUR ---
Accu check [id number] - [id number]
--- NOTE | 2016-08-10 08:03 | NUR ---
NUTRITION ASSESSMENT Level 1 Patient: Shy Hong Age/Sex: 66/F Date Screened: 08-10-16 Weight: 164.7#/74.9 kg Height: 65 inches Primary Diagnosis: respiratory failure/COPD Diet Order: NPO Relevant labs: potassium 5.2, glucose 218 Food allergies: STRAWBERRIES Nutrition Assessment Criteria Age over 80: N Body Mass Index (BMI) under 19: N Admission Screening Indicates Risk? 3 points Moderate/High Risk Diagnosis: 3 points TPN or PPN: N NPO or clear liquid diet: Yes Serum Glucose <70 or >180: 3 points Hgb A1c >6.7: N/A Total: 9 points Risk Screen: __ Patient at low nutritional risk based on available data; reevaluate in 5-7 days __ Patient at moderate nutritional risk based on available data; reevaluate in 3-5 days _X_ Patient at high nutritional risk; complete Nutrition Assessment within 48 hours of admission.
--- NOTE | 2016-08-10 08:46 | Progress Note (E) ---
Progress Note S: Awake and alert, cooperative and crying she wants to go home weaning Bi-pap O: I & O Past 24 hrs 08/10/16 07:00 Intake Total 297 ml Output Total 200 ml Balance 97 ml Intake IV Total 297 ml Output Urine Total 200 ml Vital Signs Date Time Temp Pulse Resp B/P Pulse Ox O2 Delivery O2 Flow Rate FiO2 08/10/16 08:30 67 08/10/16 04:00 97.7 25 89/51 95 Bipap machine 40.00 Well-developed well-nourished white female in mild respiratory distress Sclera nonicteric, extraocular muscles are intact Neck is obese, no restrictions on range of motion Lungs are very diminished with end-expiratory wheezes Heart is distant heart tones but regular rate and rhythm Abdomen is obese, bowel sounds present, nontender per nursing personnel Extremities show trace edema Neurologically no focal deficits Lab: Sodium 140, potassium 5.8 with repeat 6.4 with subsequent 5.5, serum bicarbonate 34, PO2 32, creatinine 1, glucose is 276, INR is 1, white count is 9.6, hemoglobin 15.6, platelet count 276,000, 80% segs, urine drug screen is negative, blood: As noted, Tylenol salicylate are negative, urinalysis is normal , Laboratory Results Past 24 Hrs 08/09/16 19:50: Acetaminophen Level < 10.0, Activated Partial Thromboplast Time 32.6, Alanine Aminotransferase (ALT/SGPT) 45, Albumin 3.7, Albumin/Globulin Ratio 1.370, Alkaline Phosphatase 111, Anion Gap 16.4, Aspartate Amino Transf (AST/SGOT) 36, BUN/Creatinine Ratio 32, Basophils # (Auto) 0.0, Basophils (%) (Auto) 0, Blood Urea Nitrogen 32, C-Reactive Protein < 0.50, Calcium Level 10.0, Calcium/ Ionized Calcium Ratio 4.7, Calculated Osmolality 288, Carbon Dioxide Level 34, Chloride Level 96, Creatine Kinase MB 4.3, Creatinine 1.01, Eosinophils # (Auto ) 0.1, Eosinophils (%) (Auto) 1, Estimat Glomerular Filtration Rate 66.6, Estimated GFR (Non- 55.0, Glucose Level 267, Hematocrit 49.00, Hemoglobin 15.6, Lymphocytes # (Auto) 1.4, Lymphocytes (%) (Auto) 15, Magnesium Level 1.5, Mean Corpuscular Hemoglobin 28.9, Mean Corpuscular Hemoglobin Concent 31.8, Mean Corpuscular Volume 91, Mean Platelet Volume 11.3, Monocytes # (Auto) 0.4, Monocytes (%) (Auto) 4, Neutrophils # (Auto) 7.6, Neutrophils (%) (Auto) 80, Platelet Count 176, Potassium Level 5.8, Prothromb Time International Ratio 0.9, Prothrombin Time 10.5, Red Blood Count 5.40, Red Cell Distribution Width 15.6, Salicylates Level < 1.0, Serum Alcohol < 10.0, Sodium Level 140, Thyroid Stimulating Hormone (TSH) 1.49, Total Bilirubin 0.3, Total Creatine Kinase 84, Total Protein 6.4, Troponin I < 0.012, White Blood Count 9.56 08/09/16 21:40: Potassium Level 6.4 08/09/16 22:50: Ur Tricyclic Antidepressants Screen Negative, Urine Amorphous Sediment 1+, Urine Amphetamines Screen Negative, Urine Bacteria Rare, Urine Barbiturates Screen Negative, Urine Benzodiazepines Screen Negative, Urine Bilirubin Negative , Urine Blood Negative, Urine Cannabinoids Screen Negative, Urine Clarity Clear , Urine Cocaine Screen Negative, Urine Collection Type Clean catch, Urine Color Yellow, Urine Glucose (UA) Trace, Urine Ketones Negative, Urine Leukocyte Esterase Negative, Urine Methadone Screen Negative, Urine Methamphetamines Screen Negative, Urine Microscopic RBC 0-2, Urine Nitrite Negative, Urine Opiates Screen Negative, Urine Oxycodone Screen Negative, Urine Phencyclidine Screen Negative, Urine Propoxyphene Screen Negative, Urine Protein 2+, Urine Specific [place] >=1.030, Urine Squamous Epithelial Cells 20-50, Urine Urobilinogen 0.2, Urine WBC 2-5, Urine pH 5.5, Volume Urine Centrifuged 12 ml 08/10/16 01:00: Semaj Test N/a, Arterial Blood Base Excess 6.0, Arterial Blood HCO3 32.9, Arterial Blood Oxygen Saturation 85, Arterial Blood Partial Pressure CO2 70, Arterial Blood Partial Pressure O2 59, Arterial Blood Total CO2 35.0, Arterial Blood pH 7.28, Blood Gas Liter Flow 3.0, Blood Gas Puncture Site Left radial, FiO2 % 08/10/16 01:18: Potassium Level 5.3 08/10/16 05:55: Potassium Level 5.2, Alanine Aminotransferase (ALT/SGPT) 37, Albumin 3.1, Albumin/Globulin Ratio 1.240, Alkaline Phosphatase 86, Anion Gap 13.0, Aspartate Amino Transf (AST/SGOT) 24, BUN/Creatinine Ratio 36, Basophils # (Auto ) 0.0, Basophils (%) (Auto) 0, Blood Urea Nitrogen 32, Calcium Level 9.7, Calcium/Ionized Calcium Ratio 4.9, Calculated Osmolality 287, Carbon Dioxide Level 33, Chloride Level 101, Creatinine 0.88, Eosinophils # (Auto) 0.1, Eosinophils (%) (Auto) 1, Estimat Glomerular Filtration Rate 78.0, Estimated GFR (Non- 64.5, Glucose Level 218, Hematocrit 43.20, Hemoglobin 13.6, Lymphocytes # (Auto) 2.3, Lymphocytes (%) (Auto) 29, Mean Corpuscular Hemoglobin 28.4, Mean Corpuscular Hemoglobin Concent 31.5, Mean Corpuscular Volume 90, Mean Platelet Volume 11.2, Monocytes # (Auto) 0.6, Monocytes (%) ( Auto) 8, Neutrophils # (Auto) 4.8, Neutrophils (%) (Auto) 61, Platelet Count 184 , Red Blood Count 4.79, Red Cell Distribution Width 15.6, Sodium Level 142, Total Bilirubin 0.3, Total Protein 5.6, Troponin I 0.025, White Blood Count 7.80 Chest x-ray shows no acute cardiopulmonary process, COPD changes CT head: No acute process Impression/plan 1. Acute hypercapnic respiratory failure present on admission: This is secondary to COPD exacerbation: IV fluids: BiPAP: Repeat ABG in the morning, IV steroids, 2. Type 2 diabetes mellitus chronic present on admission: With steroids will need to aggressively treat, we will adjust as indicated 3. Hyperkalemia acute present on admission: Secondary to metabolic acidosis, no potassium supplementation can be seen, patient received calcium gluconate, D50 with insulin, in the emergency department at this time will recheck potassium at least in 4 hours, start bicarbonate drip, Kayexalate. 4. Anxiety depression chronic present on admission with a history of schizoaffective disorder: Patients currently on Depakote which I suspect is admitted stabilizer, additionally patient on Geodon, currently well balance, denies auditory or visual hallucination, denies desire to harm herself 5. DVT prophylaxis: SCD, heparin Pt seen and examined, agree with above. Pt is currently on BiPAP and not able to speak much. She does relate that she feels much better and wants to go home. Will try to wean BiPAP and let her get up and eat. If she does well, anticipate d/c soon. Jazmine Mckee APRN August 10, 2016 08:46 Jesus Tomlinson MD August 10, 2016 11:39
[2016-08-10] MEDS ORDERED: cefTRIAXone SODIUM 1,000 MG in SODIUM CHLORIDE 50 ML IV SCH (09:00)
[2016-08-10] MEDS ORDERED: SODIUM POLYSTERENE SULF SUSP 15 GM/60 ML (KAYEXALATE) BTL PO ONE (09:00)
[2016-08-10] MEDS: PANTOPRAZOLE IV 40 MG in SODIUM CHLORIDE FLUSH 10 ML IV SCH (10:03)
--- NOTE | 2016-08-10 10:31 | NUR ---
NUTRITION ASSESSMENT Level II Patient: Shy Hong Age/Sex: 66/F Date Assessed: 08-10-16 ASSESSMENT Pertinent History: Patient admitted with respiratory failure/COPD and screened at high nutritional risk secondary to diagnosis and elevated blood sugar. PMHx includes COPD, diabetes, anxiety, depression and schizophrenia. No GI concerns noted. Pt. was hospitalized 2 months ago, and weight fluctuated from 158# to 150# at D/C. She weighed 147# in 2016, and UBW had been running between 146-154# in prior months. She lives at home with her son. Noted pt. has a history of not taking her medications, including diabetes meds. Meds/Nutrition: Protonix, Humalog Weight: 164.7#/74.9 kg Height: 65 inches Body Mass Index (BMI): 27.5 [place] Body Weight : 125#/56.8 kg % IBW: 131% GASTROINTESTINAL Appetite: unable to assess Diet Order: NPO Unintentional loss of >10 lbs. in 3 months: N Difficult to chew/swallow: N Diabetes: Yes Relevant Labs: potassium 5.2, glucose 218 Calculations for Nutritional Assessment Estimated calorie needs: 22-25 kcals/kg = 1,620-1,850 kcals Estimated protein needs: 1.0-1.3 g/kg = 74-96 g./day DIAGNOSIS 1. Nutrition Diagnosis: Potential for inadequate intake related to difficulty breathing as evidenced by respiratory failure on bipap and significant SOA. 2. Nutrition Diagnosis: Altered nutrition-related lab values (glucose) related to endocrine dysfunction and medication as evidenced by blood glucose consistently >200 and on steroids. NUTRITIONAL INTERVENTION Goal: Patient will receive adequate nutrition to meet her needs within an appropriate time-frame. Plan: No recent Hgb A1c is available; most recent one was 9.1 in 2015. Blood sugars are being addressed with insulin. Will monitor length of time NPO and tolerance to diet as advanced. MONITORING & EVALUATION __ Monitor patients menu selections __ Monitor patients food intake per nursing notes _X_ Monitor NPO/clear liquid days __ Monitor lab values __ Monitor I&O __ Other
[2016-08-10] MEDS: oxyCODONE/ACETAMINOPHEN 5MG-325 MG (PERCOCET) TABLET PO PRN ×3 (11:09→23:11)
[2016-08-10] MEDS: NICOTINE 21 MG (NICODERM) PATCH TD SCH (12:08)
[2016-08-10] MEDS ORDERED: FLUT1DIS INH (13:33)
[2016-08-10] MEDS ORDERED: RAME8T PO (13:33)
[2016-08-10] MEDS ORDERED: MIRA50TA PO (13:33)
[2016-08-10] MEDS ORDERED: CYAN10004 IM (13:33)
[2016-08-10] MEDS ORDERED: TRM50T PO ×2 (15:19)
[2016-08-10] MEDS ORDERED: NEOM7.5D3 OS (15:42)
[2016-08-10] MEDS ORDERED: ALBU8.5H6 IH (15:42)
[2016-08-10] MEDS ORDERED: INSU100I14 SQ (15:42)
[2016-08-10] MEDS ORDERED: FLUT16SP NSEACH (15:42)
[2016-08-10] MEDS ORDERED: IBP800T PO (15:42)
[2016-08-10] MEDS ORDERED: IPRA3AMP11 INH (15:42)
[2016-08-10] MEDS ORDERED: ONDA4TAB8 PO (15:42)
--- NOTE | 2016-08-10 16:23 | NUR ---
MED REC COMPLETE--current med list obtained from external med history application, previous hospitalization (06/23/16), list provided by patient's PCP, and retail pharmacy ([facility]).
[2016-08-10 19:37] VITALS: BP 146/72
[2016-08-10 20:00] VITALS: BP 142/70
[2016-08-11] MEDS: methylPREDNISolone 125 MG (Solu-MEDROL) VIAL IV SCH ×2 (00:40→06:25)
[2016-08-11] MEDS: oxyCODONE/ACETAMINOPHEN 5MG-325 MG (PERCOCET) TABLET PO PRN (04:47)
[2016-08-11] MEDS: ALBUTEROL/IPRATROPIUM 3MG-0.5MG/3ML (DUONEB) NEB VIAL INH SCH ×4 (05:40→22:46)
[2016-08-11] MEDS ORDERED: LEVOTHYROXINE 100 MCG (LEVOTHROID) TABLET PO SCH (07:45)
--- NOTE | 2016-08-11 07:51 | NUR ---
Pt. has been resting in bed, Dr. Zamora has been in to see pt. She awakens easily, reports headache pain and abdominal pain with palpation. She had multiple BMs in the night and has active bowel sounds. She is able to easily go back to sleep after being awakened and carrying conversation. She wants to go home today, but after speaking with Dr. Zamora she is agreeable to stay.
--- NOTE | 2016-08-11 07:55 | Progress Note (E) ---
Progress Note S: Pt is confused at baseline and per RN is at her bl mentation. She is an unreliable historian and is unable to give an accurate hx. Her ROS is limited and she reports multiple areas of pain, but unable to explain details. Denies F/ C, vision change, N/V. RN states pt has had multiple BM's. Adequate UOP. No new concerns per nursing staff. O: Well-developed well-nourished female Sclera nonicteric, extraocular muscles are intact Neck is obese, no restrictions on range of motion Lungs are diminished bilaterally no rales, wheezes or rhonchi Heart is distant heart tones but regular rate and rhythm Abdomen is obese, bowel sounds present Extremities show trace edema Neurologically no focal deficits, GCS 15, b/l dementia Vital Signs Date Time Temp Pulse Resp B/P Pulse Ox O2 Delivery O2 Flow Rate FiO2 08/11/16 05:21 94 08/11/16 04:02 97.4 08/10/16 20:00 16 142/70 94 Nasal cannula 08/10/16 04:00 40.00 I & O 08/10/16 08/11/16 Cumulative From/Thru 19:00 07:00 08/09/16 18:30 - 08/11/16 06:38 Intake Total 1171 ml 1989 ml 3457 ml Output Total 450 ml 1550 ml 2200 ml Balance 721 ml 439 ml 1257 ml Lab-Past 14 Days, 35 Results 08/09/16 19:50: Acetaminophen Level < 10.0L, Activated Partial Thromboplast Time 32.6, Alanine Aminotransferase (ALT/SGPT) 45, Albumin 3.7, Albumin/Globulin Ratio 1.370, Alkaline Phosphatase 111, Anion Gap 16.4H, Aspartate Amino Transf (AST/SGOT) 36 , BUN/Creatinine Ratio 32H, Basophils # (Auto) 0.0, Basophils (%) (Auto) 0, Blood Urea Nitrogen 32H, C-Reactive Protein < 0.50, Calcium Level 10.0, Calcium/ Ionized Calcium Ratio 4.7H, Calculated Osmolality 288, Carbon Dioxide Level 34H , Chloride Level 96L, Creatine Kinase MB 4.3, Creatinine 1.01, Eosinophils # ( Auto) 0.1, Eosinophils (%) (Auto) 1, Estimat Glomerular Filtration Rate 66.6, Estimated GFR (Non- 55.0, Glucose Level 267H, Hematocrit 49.00H , Hemoglobin 15.6H, Lymphocytes # (Auto) 1.4, Lymphocytes (%) (Auto) 15L, Magnesium Level 1.5L, Mean Corpuscular Hemoglobin 28.9, Mean Corpuscular Hemoglobin Concent 31.8, Mean Corpuscular Volume 91, Mean Platelet Volume 11.3H , Monocytes # (Auto) 0.4, Monocytes (%) (Auto) 4, Neutrophils # (Auto) 7.6, Neutrophils (%) (Auto) 80H, Platelet Count 176, Potassium Level 5.8H, Prothromb Time International Ratio 0.9, Prothrombin Time 10.5, Red Blood Count 5.40H, Red Cell Distribution Width 15.6, Salicylates Level < 1.0L, Serum Alcohol < 10.0L, Sodium Level 140, Thyroid Stimulating Hormone (TSH) 1.49#, Total Bilirubin 0.3, Total Creatine Kinase 84#, Total Protein 6.4, Troponin I < 0.012, White Blood Count 9.56 08/09/16 21:40: Potassium Level 6.4*H 08/09/16 22:50: Ur Tricyclic Antidepressants Screen Negative, Urine Amorphous Sediment 1+H, Urine Amphetamines Screen Negative, Urine Bacteria Rare, Urine Barbiturates Screen Negative, Urine Benzodiazepines Screen Negative, Urine Bilirubin Negative , Urine Blood Negative, Urine Cannabinoids Screen Negative, Urine Clarity Clear , Urine Cocaine Screen Negative, Urine Collection Type Clean catch, Urine Color Yellow, Urine Glucose (UA) TraceH, Urine Ketones Negative, Urine Leukocyte Esterase Negative, Urine Methadone Screen Negative, Urine Methamphetamines Screen Negative, Urine Microscopic RBC 0-2, Urine Nitrite Negative, Urine Opiates Screen Negative, Urine Oxycodone Screen Negative, Urine Phencyclidine Screen Negative, Urine Propoxyphene Screen Negative, Urine Protein 2+H, Urine Specific [place] >=1.030, Urine Squamous Epithelial Cells 20-50, Urine Urobilinogen 0.2, Urine WBC 2-5, Urine pH 5.5, Volume Urine Centrifuged 12 ml 08/10/16 01:00: Semaj Test N/a, Arterial Blood Base Excess 6.0H, Arterial Blood HCO3 32.9H, Arterial Blood Oxygen Saturation 85L, Arterial Blood Partial Pressure CO2 70H, Arterial Blood Partial Pressure O2 59L, Arterial Blood Total CO2 35.0H, Arterial Blood pH 7.28L, Blood Gas Liter Flow 3.0, Blood Gas Puncture Site Left radial, FiO2 % 08/10/16 01:18: Potassium Level 5.3H 08/10/16 05:55: Potassium Level 5.2H, Alanine Aminotransferase (ALT/SGPT) 37, Albumin 3.1L, Albumin/Globulin Ratio 1.240, Alkaline Phosphatase 86, Anion Gap 13.0, Aspartate Amino Transf (AST/SGOT) 24, BUN/Creatinine Ratio 36H, Basophils # ( Auto) 0.0, Basophils (%) (Auto) 0, Blood Urea Nitrogen 32H, Calcium Level 9.7, Calcium/Ionized Calcium Ratio 4.9H, Calculated Osmolality 287, Carbon Dioxide Level 33H, Chloride Level 101, Creatinine 0.88, Eosinophils # (Auto) 0.1, Eosinophils (%) (Auto) 1, Estimat Glomerular Filtration Rate 78.0, Estimated GFR (Non- 64.5, Glucose Level 218H, Hematocrit 43.20, Hemoglobin 13.6, Lymphocytes # (Auto) 2.3, Lymphocytes (%) (Auto) 29, Mean Corpuscular Hemoglobin 28.4, Mean Corpuscular Hemoglobin Concent 31.5, Mean Corpuscular Volume 90, Mean Platelet Volume 11.2H, Monocytes # (Auto) 0.6, Monocytes (%) (Auto) 8, Neutrophils # (Auto) 4.8, Neutrophils (%) (Auto) 61, Platelet Count 184, Red Blood Count 4.79, Red Cell Distribution Width 15.6, Sodium Level 142, Total Bilirubin 0.3, Total Protein 5.6L, Troponin I 0.025, White Blood Count 7.80 08/10/16 13:08: Troponin I 0.018 Chest x-ray shows no acute cardiopulmonary process, COPD changes CT head: No acute process A/P 1. Acute hypoxic hypercapnic respiratory failure 2/2 COPD * Continue to wean O2, now @ 6L NC, symptomatically improving * Moving more air on exam, decrease steroid dose to 40 mg PO prednisone * Continue Resp treatments 2. Acute Hyperkalemia- recheck labs this AM, s/p insulin and D50, calcium gluconate + Kayexalate 3. Type 2 uncontrolled diabetes mellitus * Restart home insulin regimen, keep sliding scale on, continues to me elevated will follow and adjusted as needed * Check A1c, last >9 03/23 4. Mental health- anxiety, depression, schizoaffective d/o- restart home meds, denies HI/SI 5. Hypothyroidism- TSH, wnl, restart levothyroxine 6. Chronic pain- on Tramadol and Percocet, difficult to evaluate as changing areas of pain, follow and eval/tx as indicated. DVT prophylaxis: SCD Disposition: Continue to wean O2 as able, decreased steroids, follow glucose levels with change in insulin regimen, restart home psych meds, D/C Castro whitaker/Kev IVF's with adequate UOP and pt tolerating PO, plan to xfer to floor later today pending any acute changes. MADELINE CRUZ DO August 11, 2016 07:45
[2016-08-11 08:00] VITALS: BP 143/63
[2016-08-11] MEDS ORDERED: INSULIN ASPART 11 UNIT SQ SCH (08:00)
[2016-08-11] MEDS ORDERED: INSULIN LISPRO 1 UNIT/0.01 ML (HUMALOG) DOSE SC SCH ×2 (08:00→12:00)
[2016-08-11] MEDS: INSULIN LISPRO 1 UNIT/0.01 ML (HUMALOG) DOSE SC SCH ×5 (08:23→21:19)
[2016-08-11] MEDS: PANTOPRAZOLE IV 40 MG in SODIUM CHLORIDE FLUSH 10 ML IV SCH (08:25)
[2016-08-11] MEDS: NICOTINE 21 MG (NICODERM) PATCH TD SCH (08:26)
[2016-08-11 08:30] LABS: ANION GAP 12.3 MEQ/L (3-15); MAGNESIUM* 1.5 mg/dL (1.6-2.3)
[2016-08-11] MEDS: ZIPRASIDONE 40 MG (GEODON) CAP PO SCH ×3 (08:37→20:31)
--- NOTE | 2016-08-11 08:42 | NUR ---
Pt. getting increasingly agitated. Adamant about going home today again. She is yelling about calling her dad. She has been given Tramadol for headache pain, but she is upset because she takes 2 at home and only has one pill ordered here. She has refused to take her Geodon - states that she is "allergic" and does not take it. Dr. Zamora notified that pt. is wanting to go home today and that she refused Geodon. Have been weaning pt. off O2. Started at 8L at 0700, now on 5L/NC and SpO2 is 93%. RT notified.
[2016-08-11] MEDS ORDERED: PATCH REMOVAL TOP SCH (08:59)
--- NOTE | 2016-08-11 09:52 | NUR ---
Pt. c/o pain to her R wrist which radiates up to her elbow and shoulder. She states she fell on that wrist. Small bruise noted to R wrist. R hand is noted to be slightly swollen compared to L. Dr. Zamora notified and order received for xray of R wrist.
--- NOTE | 2016-08-11 10:33 | NUR ---
Radiology has taken xrays of R wrist. Kip MAN'octavio at 1030. Pt. assisted up to bathroom - she feels like she needs to have a BM, or pass gas. She wants to shower before her family arrives. Pt. assisted to for shower in larger shower room on m/s unit. O2 has been decreased to 3L/NC with SpO2 91-92%.
--- NOTE | 2016-08-11 10:44 | NUR ---
Pt. has been concerned that her stool softener and milk of magnesia are not ordered. She states she is used to having several BMs a day. She does not recall having BMs last night, or taking anything that would cause her to have a BM. I have reminded her that she was given kaexylate last night, but she does not believe she did/does not remember it, and does not believe me. Dr. Zamora notified that she would like her Colace and MOM ordered - order received to resume home doses.
[2016-08-11] MEDS ORDERED: MAGNESIUM HYDROXIDE 80MG/ML (MILK OF MAGNESIA) 30 ML UDC PO PRN ×2 (10:45→13:00)
--- NOTE | 2016-08-11 10:49 | Diagnostic Imaging Report ---
INDICATION: Right wrist pain 3 views of the right wrist shows no fracture, dislocation or other acute bony abnormality. There are mild degenerative changes of the carpal bones. No avascular necrosis is evident. IMPRESSION: No acute abnormality is seen. Dictated by: Dictated on workstation # [id number]
--- NOTE | 2016-08-11 11:32 | NUR ---
Pts. father and son have arrived. Despite pt. stating that she wants them present all morning, she has been more agitated since they arrived. Pts. son is concerned that she needs a mental health consult. He is aware that the pt. would probably not like this, but he feels it may be the only way. Dr. Zamora notified that family is present if he wants to speak with him.
--- NOTE | 2016-08-11 11:44 | NUR ---
Pt. now on 2L/NC with SpO2 97%.
[2016-08-11 12:07] VITALS: BP 122/56
[2016-08-11 12:11] VITALS: BP 122/56
[2016-08-11] MEDS ORDERED: DEXTROSE ORAL GEL (GLUTOSE 40%) 15 GM TUBE PO PRN (12:15)
[2016-08-11] MEDS ORDERED: DOCUSATE SODIUM 100 MG (COLACE) CAP PO SCH (13:00)
[2016-08-11] MEDS ORDERED: ALBUTEROL 0.083% NEB SOLUTION 2.5 MG/3 ML VIAL INH PRN (13:00)
[2016-08-11] MEDS ORDERED: DEXTROSE 50% 25 GM/50 ML SYRINGE IV PRN (13:09)
[2016-08-11] MEDS ORDERED: GLUCAGON EMERGENCY 1 MG/KIT IM PRN (13:10)
[2016-08-11] MEDS ORDERED: oxyCODONE/ACETAMINOPHEN 5MG-325 MG (PERCOCET) TABLET PO PRN (13:11)
[2016-08-11] MEDS ORDERED: SODIUM CHLORIDE FLUSH 10 ML SYR IV PRN (13:12)
[2016-08-11] MEDS ORDERED: SODIUM CHLORIDE FLUSH 3 ML SYR IV PRN (13:12)
[2016-08-11] MEDS: DOCUSATE SODIUM 100 MG (COLACE) CAP PO SCH ×2 (13:26→17:44)
--- NOTE | 2016-08-11 13:48 | NUR ---
Pt. transferred to [facility] at this time via WC with belongings. This nurse to continue care of pt.
[2016-08-11 15:35] VITALS: BP 151/72
[2016-08-11 16:33] VITALS: BP 151/72
--- NOTE | 2016-08-11 17:30 | NUR ---
Pt. has not voided since catheter removal at 1030. Dr. Zamora notified. Order received to obtain bladder scan.
--- NOTE | 2016-08-11 17:35 | NUR ---
Notified Dr. Zaomra of bladder scan of 352ml. Pt. states she voided "a small amount" when she was up to the restroom immediately after having Shin removed. Order from Dr. Zamora received to recheck bladder scan at 2100 if no void by then and call for further orders if needed.
--- NOTE | 2016-08-11 18:30 | NUR ---
Pt. has voided, but missed the hat. Will pass on to oncoming shift to check bladder scan at 2100 despite her voiding.
--- NOTE | 2016-08-11 18:57 | NUR ---
Report given to Yocasta YEBOAH and care of pt. assumed.
--- NOTE | 2016-08-11 20:30 | NUR ---
Patient was very upset. Wanting more pills. Gave patient Ultram that she asked for along with HS meds. Fed them to her in applesauce. States " I take more pills then that". Yelling at Nurse. Very unreasonable. Yelling at family to go get her a taco and pop and to go home and get her meds. Told her son we would feed her, which we did, that he did not have to come back. Family did leave, but later around 2300 brought her food. They did not bring her any pills. She was incontinent x4. She sat in the recliner chair and just urinated. Was mad at staff and very uncooperative. Bladder scan only 200cc. Reminded patient that she needed to stop yelling and the there were other patients trying to sleep. She eventually calmed down and went to sleep. Oxygen remains at 2 liters per NC. Uses call light when needing to get up.
[2016-08-11] MEDS ORDERED: DIVALPROEX EXT RELEASE 500 MG (DEPAKOTE ER) TAB PO SCH ×2 (21:00)
[2016-08-11] MEDS ORDERED: INSULIN DETEMIR 1 UNIT/0.01 ML (LEVEMIR) DOSE SC SCH ×3 (21:00)
[2016-08-11] MEDS ORDERED: ATORVASTATIN 10 MG (LIPITOR) TABLET PO SCH ×2 (21:00)
--- NOTE | 2016-08-12 01:25 | NUR ---
Patient asleep. Neuros not done.
[2016-08-12] MEDS: ALBUTEROL/IPRATROPIUM 3MG-0.5MG/3ML (DUONEB) NEB VIAL INH SCH ×2 (05:28→14:00)
[2016-08-12] MEDS ORDERED: LEVOTHYROXINE 100 MCG (LEVOTHROID) TABLET PO SCH (06:00)
--- NOTE | 2016-08-12 06:00 | NUR ---
Patient rested well tonight after her family left at 2300. She called twice to use the restroom. Voided 800cc one time in the hat in toilet. Missed hat twice. Takes fluids well. Continues to have carlene orbital edema. Also some edema in right hand. Accu Check this morning 266. Drinking coffee and wants a snack before breakfast. Anxious to go home today. Call light within reach. Watching TV this morning.
[2016-08-12 06:19] LABS: ANION GAP 17.6 MEQ/L (3-15)
[2016-08-12 07:19] VITALS: BP 151/81
[2016-08-12 08:00] VITALS: BP 151/81
[2016-08-12] MEDS: INSULIN LISPRO 1 UNIT/0.01 ML (HUMALOG) DOSE SC SCH ×2 (08:14)
[2016-08-12] MEDS: DOCUSATE SODIUM 100 MG (COLACE) CAP PO SCH (08:14)
[2016-08-12] MEDS: ZIPRASIDONE 40 MG (GEODON) CAP PO SCH (08:18)
--- NOTE | 2016-08-12 08:18 | Discharge Instructions (E) ---
Discharge Instructions Instructions Take all medicines as prescribed. Wear oxygen all the time. Activity Instructions Up as tolerated Doctor's Appointment Call Dr. Marsh on Saturday for an appointment at [phone]. You will need to see him to get medicine refills. Discharge Diet: Carbohydrate controlled Jesus Tomlinson MD August 12, 2016 08:18
--- NOTE | 2016-08-12 08:27 | Discharge Summary (E FT) ---
Discharge Summary (E FT) Admit Date August 10, 2016 at 01:00 Discharge Date August 12, 2016 Admitting Provider Parag Taylor MD Primary Care Provider Parag Maradiaga MD Attending Provider Parag Taylor MD Consulting Provider Hospital Course Summary Shy was admitted from the ED on 08/10/16 for mental status changes. The patient was found altered at home without her oxygen with O2 saturations in the mid 50s. EMS transported to the emergency department where she subsequently was evaluated and placed on oxygen. The patients workup in the emergency department ultimately revealed the patient hypercapnic respiratory failure. The patient was started on BiPAP. Chest x-ray was unrevealing for acute infiltrate. Patient is found to be hyperkalemia which is confirmed on redraw. The patient was treated with calcium gluconate, insulin, nebulized treatments. Potassium came down appropriately and has been stable during admission. Respiratory status improved with BiPAP and O2 and she is now back to baseline. Pt was moved to med/surg floor on 08/11 where she continued to do well. At this time, Shy is back to baseline respiratory and mental status. Discharge Disposition Discharged home with family. Follow up Instructions Take all medicines as prescribed. Wear oxygen all the time. Copies to: Additional Provider: PARAG MARADIAGA MD End of Report . Jesus Tomlinson MD August 12, 2016 08:27
[2016-08-12] MEDS ORDERED: PATCH REMOVAL TOP SCH (08:59)
[2016-08-12] MEDS ORDERED: PANTOPRAZOLE IV 40 MG in SODIUM CHLORIDE FLUSH 10 ML IV SCH (09:00)
[2016-08-12] MEDS ORDERED: NICOTINE 21 MG (NICODERM) PATCH TD SCH (09:00)
--- NOTE | 2016-08-12 10:04 | NUR ---
Pt up in chair, ate breakfast. Has been alert/oriented, cooperative with cares. IV dc'd from LFA- tip intact, site without redness/swelling. Pt awaiting sons arrival for dismissal.
--- NOTE | 2016-08-12 11:03 | NUR ---
Discharge instructions reviewed with patient , dad and son. SIgnature sheets signed. This nurse gave report to home health nurse that reports she will be at house at 1pm= kindra an. Pt dismissed to home at this time.
== END 2016-08-12 11:05 | disposition home or self-care (01) | DRG 189 ==
LOC: ED 18:19 → ICU 08-10 01:00 → MED/SURG 08-11 13:48
PROVIDERS: ADMIT Emergency Medicine; ATTEND Emergency Medicine
DX: J96.02 Acute respiratory failure with hypercapnia (principal); J44.1 Chronic obstructive pulmonary disease with (acute) exacerbation; E87.2 Acidosis; I10 Essential (primary) hypertension; E87.5 Hyperkalemia; E11.9 Type 2 diabetes mellitus without complications; F20.9 Schizophrenia, unspecified; F41.9 Anxiety disorder, unspecified; F32.9 Major depressive disorder, single episode, unspecified; E03.9 Hypothyroidism, unspecified; G89.29 Other chronic pain
CPT/HCPCS: 36415; 36600; 51702; 70450; 71010; 73110; 80048; 80053; 80307; 80320; 80329; 81003; 81015; 82550; 82553; 82803; 83036; 83735; 84132; 84443; 84484; 85025; 85610; 85730; 86140; 93005; 93010; 94640; 94660; 96365; 96375; 99285; 99291

== ENCOUNTER → 2016-08-09 | Outpatient (CLI) | payer MEDICARE ==
[~2016-08-09] MED LIST changes: +ALBU8.5H6 IH; +CEPH500T PO; +CYAN10004 IM; +FLUT1DIS INH; +HYDR-3702 PO; +IBP800T PO; +INSU100I14 SQ; +MIRA50TA PO; +NEOM7.5D3 OS; +RAME8T PO
== END ==
LOC: EMS 18:18
PROVIDERS: ATTEND Emergency Medicine
DX: R41.82 Altered mental status, unspecified (principal); R53.83 Other fatigue
CPT/HCPCS: 93005; 94640

== ENCOUNTER 2016-08-17 23:47 | Emergency (ER) | payer MEDICARE ==
[~2016-08-17] VITALS: Ht 165.1 cm; Wt 75.4 kg
[~2016-08-17 23:47] MED LIST changes: +ALBU8.5H6 IH; +CYAN10004 IM; +FLUT1DIS INH; +IBP800T PO; +INSU100I14 SQ; +MIRA50TA PO; +NEOM7.5D3 OS; +RAME8T PO
[2016-08-18 00:36] VITALS: BP 114/66
[2016-08-18] MEDS: HYDROcodone/APAP 5 MG/325 MG (NORCO) TAB PO ONE (01:42)
--- NOTE | 2016-08-18 07:13 | Diagnostic Imaging Report ---
EXAMINATION: Left foot, 2 views. COMPARISON: August 11, 2010. INDICATION: 66-year-old female, history of left foot abscess. FINDINGS: There are limitations of the exam relating to the two-view technique. There is a small calcaneal heel spur. There are mild degenerative type enthesophytes at the insertion of the Achilles tendon. There is moderate tibiotalar joint space loss. There is no identified large ankle joint effusion. There are mild midfoot degenerative changes. There are degenerative changes at the first metatarsophalangeal joint. There is a mild hallux valgus deformity. There is no identified radiopaque foreign body. There is no cortical or aggressive bone destruction. IMPRESSION: 1. No radiographic evidence of osteomyelitis. 2. Mild degenerative type calcaneal enthesopathy. 3. Moderate tibiotalar osteoarthritis. 4. Mild midfoot degenerative changes and degenerative changes at the first metatarsophalangeal joint with mild hallux valgus. Dictated by: Dictated on workstation # [id number]
== END 2016-08-18 23:00 | disposition home or self-care (01) ==
LOC: EDUNIT# 23:47 → ED 23:52
DX: S91.332S Puncture wound without foreign body, left foot, sequela (principal); M79.672 Pain in left foot; W22.8XXS Striking against or struck by other objects, sequela
CPT/HCPCS: 73620; 99282; A9270

== ENCOUNTER 2016-09-02 02:26 | Emergency (ER) | payer MEDICARE ==
[~2016-09-02] VITALS: Ht 165.1 cm; Wt 84.1 kg
[~2016-09-02 02:26] MED LIST changes: -CEFD300C PO; -CEPH500C PO; -CLON0.1T PO
[2016-09-02 02:40] VITALS: BP 181/92
[2016-09-02] MEDS ORDERED: SODIUM CHLORIDE FLUSH 10 ML SYR IV PRN (03:25)
[2016-09-02] MEDS ORDERED: morphine INJ 2 MG/ML 1 ML SYRINGE IV PRN (03:25)
[2016-09-02] MEDS ORDERED: SODIUM CHLORIDE FLUSH 3 ML SYR IV PRN (03:25)
[2016-09-02] MEDS ORDERED: ACET325T38 PO (03:27)
[2016-09-02] MEDS ORDERED: CEPH500C PO (03:27)
[2016-09-02] MEDS ORDERED: CLON0.1T PO (03:27)
[2016-09-02] MEDS ORDERED: MULT-954 PO (03:27)
[2016-09-02] MEDS ORDERED: IBP800T PO (03:27)
[2016-09-02] MEDS ORDERED: CEFD300C PO (03:27)
[2016-09-02] MEDS ORDERED: morphine INJ 4 MG/ML 1 ML SYRINGE ONE (03:30)
[2016-09-02] MEDS ORDERED: morphine INJ 4 MG/ML 1 ML SYRINGE IM ONE (03:30)
[2016-09-02] MEDS ORDERED: ALBUTEROL/IPRATROPIUM 3MG-0.5MG/3ML (DUONEB) NEB VIAL INH ONE (03:45)
[2016-09-02 04:16] LABS: BASOPHILS % (AUTO) 0 % (0-2); EOSINOPHILS # (AUTO) 0.2 10^3uL; EOSINOPHILS % (AUTO) 2 % (0-4); LYMPHOCYTES # (AUTO) 2.6 X10^3; MEAN CORPUSCULAR HEMOGLOBIN 28.7 PG (26.0-34.0); MEAN CORPUSCULAR HGB CONC 33.6 g/dL (31.0-37.0); MEAN CORPUSCULAR VOLUME 86 FL (80-100); MEAN PLATELET VOLUME 11.8 FL (6.0-9.5); MONOCYTES # (AUTO) 0.8 X10^3; MONOCYTES % (AUTO) 8 % (3-11); NEUTROPHILS # (AUTO) 6.2 X10^3; NEUTROPHILS % (AUTO) 63 % (51-67); PLATELET COUNT 193 10^3uL (150-450); WHITE BLOOD COUNT 9.88 10^3uL (4.0-11.0)
[2016-09-02 04:21] LABS: ALBUMIN 3.5 g/dL (3.4-5.0); ANION GAP 12.2 MEQ/L (3-15); CALCULATED IONIZED CALCIUM 4.7 mg/dL (3.8-4.6); TOTAL PROTEIN 6.3 g/dL (6.4-8.5)
[2016-09-02 04:43] LABS: BILIRUBIN,URINE Negative (Negative); CLARITY,URINE Clear; COLOR,URINE Yellow; GLUCOSE, URINE (UA) 2+ (Negative); LEUKOCYTE ESTERASE ,URINE Negative (Negative); UROBILINOGEN,URINE 0.2 mg/dL (0.2-1.0)
[2016-09-02 04:58] LABS: RBC,URINE 0-2 /HPF; URINE CENTRIFUGED VOLUME 12 mL
--- NOTE | 2016-09-02 06:12 | NUR ---
PT WAS SLEEPING FAMILY IN ROOM PT ASK FOR PAIN MEDS WHEN WOKEN UP, THEN SHE FALLS BACK A SLEEP
--- NOTE | 2016-09-02 06:23 | Diagnostic Imaging Report ---
PROCEDURE: CT head and CT cervical spine without contrast. TECHNIQUE: Multiple contiguous axial images were obtained through the brain and cervical spine without the use of intravenous contrast. Sagittal and coronal reformations through the cervical spine were then performed. INDICATION: Fall from standing. Head and neck pain COMPARISON: CT head of 08/09/2016 FINDINGS: Head: No hyperdense mass or space-occupying mass. No hydrocephalus or midline shift. No evidence of territorial infarct. Basilar cisterns are patent. Mild periventricular white matter hypoattenuation likely due to chronic small vessel ischemic disease. No focal scalp swelling. No skull fracture. The paranasal sinuses and mastoid air cells are clear. Cervical spine: No acute fracture or traumatic malalignment. Moderate degenerative disc disease from C4-C5 through C6-C7. No foci of high-grade spinal stenosis or neuroforaminal narrowing by non-myelogram CT. Visualized upper ribs are intact. Medial clavicular heads are also intact. Airway is patent. No cervical lymphadenopathy. Visualized thyroid is normal. IMPRESSION: 1. No acute intracranial process. 2. No acute fracture or traumatic malalignment of the cervical spine. 3. Mild senescent changes in the deep white matter are similar. 4. Moderate cervical spondylosis. Dictated by: Dictated on workstation # [id number]
[2016-09-02] MEDS ORDERED: INSULIN LISPRO 1 UNIT/0.01 ML (HUMALOG) DOSE SC ONE (06:50)
--- NOTE | 2016-09-02 07:12 | NUR ---
Received report from Yeimi Boswell RN. Assumed patient care.
[2016-09-02] MEDS ORDERED: ED- TRAMADOL 50 MG (ULTRAM) 6 TABLETS/BTL PO ONE (07:50)
[2016-09-02] MEDS ORDERED: TRM50T PO (07:51)
--- NOTE | 2016-09-02 08:55 | Diagnostic Imaging Report ---
ANKLE, LEFT, 3 VIEWS COMPARISON: None available. INDICATION: Ankle pain after fall TECHNIQUE: Non-weight bearing AP, oblique, and lateral views. FINDINGS: Tiny ossific fragment at the tip of the anterior process of the calcaneus is age-indeterminate. There is an old healed fracture deformity of the distal fibular metadiaphysis. There is also an old avulsion type fracture from the tip of the lateral malleolus. Ankle mortise is grossly congruent on nonstress imaging. No fracture of the posterior malleolus. Mild posttraumatic osteoarthritis of the tibiotalar joint. Small plantar calcaneal spur. IMPRESSION: 1. Age-indeterminate tiny avulsion cortical fallon fracture of the anterior process of the calcaneus. Given prior trauma to the lateral malleolus, this may be chronic in nature. 2. Old healed fracture deformity of the lateral malleolus. 3. No evidence of other acute fracture. Moderate soft tissue swelling about the ankle. Dictated by: Dictated on workstation # [id number]
== END 2016-09-02 09:40 | disposition home or self-care (01) ==
LOC: ED 02:28
DX: M54.2 Cervicalgia (principal); M25.572 Pain in left ankle and joints of left foot; W19.XXXA Unspecified fall, initial encounter; R73.9 Hyperglycemia, unspecified
CPT/HCPCS: 36415; 70450; 72125; 73610; 80053; 81003; 81015; 82009; 85025; 94640; 96372; 99283; J1815; J2270

== ENCOUNTER → 2016-09-02 | Outpatient (CLI) | payer MEDICARE ==
[~2016-09-02] MED LIST changes: +CEFD300C PO; +CEPH500C PO; +CLON0.1T PO
== END ==
LOC: EMS 02:23
PROVIDERS: ATTEND Emergency Medicine
DX: M25.572 Pain in left ankle and joints of left foot (principal); W01.0XXA Fall on same level from slipping, tripping and stumbling without subsequent striking against object, initial encounter; Y93.89 Activity, other specified